=== PATIENT | female | born 1970 | race Two or more races ===

== ENCOUNTER 2016-08-05 13:30 | Inpatient (IN) | payer OTHER ==
[~2016-08-05] VITALS: Ht 154.9 cm; Wt 84.0 kg
[2016-08-05] MEDS ORDERED: ASPIRIN 81 MG TAB PO STA (19:18)
--- NOTE | 2016-08-05 19:22 | ERA ---
ER Documentation Chief Complaint Date/Time DATE: 08/05/16 TIME: 19:20 Chief Complaint dialysis access clogged HPI Patient is a 45-year-old female on dialysis who was sent from dialysis clinic to the ER yesterday, but did not come to the ER until today. She was sent for a broken dialysis catheter in order to have it replaced. Last successful dialysis was 4 days ago. Patient reports having gradual onset, intermittent, dull, moderate left-sided chest pain for the last day. She reports that the pain has now been constant for approximately 5 hours. She denies shortness of breath, fever, back pain. The patient reports having a nonproductive cough. ROS All systems reviewed and are negative except as per history of present illness. Medications Home Meds Reported Medications Insulin Aspart* (Novolog Insulin Pen*) 100 Unit/Ml Soln, 5 UNIT SC WITH MEALS, EA 08/05/16 Insulin Glargine* (Lantus*) 100 Unit/Ml Soln, 20 UNIT SC QHS, #1 VIAL 08/05/16 Escitalopram Oxalate* (Lexapro*) 10 Mg Tablet, 10 MG PO DAILY, #30 TAB 08/05/16 Carvedilol* (Carvedilol*) 12.5 Mg Tablet, 12.5 MG PO BID, #60 TAB 08/05/16 Amlodipine Besylate* (Norvasc*) 5 Mg Tablet, 5 MG PO DAILY, TAB 08/05/16 Furosemide* (Furosemide*) 40 Mg Tablet, 40 MG PO DAILY, TAB 08/05/16 Levothyroxine Sodium* (Levothyroxine Sodium*) 25 Mcg Tablet, 25 MCG PO BEFORE BREAKFAST, #30 TAB 08/05/16 Allopurinol* (Allopurinol*) 100 Mg Tablet, 100 MG PO BID, TAB 08/05/16 Isosorbide Dinitrate* (Isosorbide Dinitrate*) 20 Mg Tablet, 20 MG PO TID, TAB 08/05/16 Enalapril Maleate* (Enalapril Maleate*) 10 Mg Tablet, 10 MG PO DAILY, TAB 08/05/16 Hydralazine Hcl* (Hydralazine Hcl*) 100 Mg Tablet, 100 MG PO TID, #90 TAB 08/05/16 Allergies Allergies: Coded Allergies: Penicillins (Verified Allergy, Unknown, 08/05/16) PMhx/Soc Past medical history: End-stage renal disease, diabetes, hypertension Past surgical history: Cholecystectomy Social history: Denies tobacco or alcohol. FmHx Family History: No coronary disease, No diabetes Physical Exam Vitals Vital Signs Date Time Temp Pulse Resp B/P Pulse Ox O2 Delivery O2 Flow Rate FiO2 08/05/16 13:50 97.9 76 18 183/79 98 Physical Exam Const: Alert, no acute distress Head: Atraumatic Eyes: Normal Conjunctiva, no pallor, no icterus ENT: Normal External Ears, Nose and Mouth. Mucous membranes moist Neck: Full range of motion..~ No meningismus. No JVD Resp: Clear to auscultation bilaterally, no wheezes, no rales Cardio: Regular rate and rhythm, no murmurs Abd: Soft, non tender, non distended. Normal bowel sounds Skin: No petechiae or rashes Back: No midline or flank tenderness Ext: No cyanosis, 1+ pitting edema bilateral ankles. Neur: Awake and alert, cranial nerves II through XII intact bilaterally, moves and feels 4 extremities appropriately. Psych: Normal Mood and Affect Result Diagram: 08/05/162044 Results 24 hrs Laboratory Tests Test 08/05/16 20:45 Sodium Level 136mmol/L Potassium Level 3.6mmol/L Chloride Level 95mmol/L Carbon Dioxide Level 27mmol/L Anion Gap 18 Blood Urea Nitrogen 42mg/dl Creatinine 3.31mg/dl Glucose Level 259mg/dl Calcium Level 9.0mg/dl Troponin I < 0.012ng/ml Current Medications Medications (Trade) Dose Ordered Sig/Zechariah Route PRN Reason Start Time Stop Time Status Last Admin Dose Admin Aspirin (Aspirin) 162 mg ONCE STAT PO 08/05/16 19:18 08/05/16 19:19 DC 08/05/16 19:31 Alteplase, Recombinant (Cathflo (Activase)) 2 mg ONCE ONCE CATHETER 08/05/16 19:30 08/05/16 19:30 DC Ondansetron HCl (Zofran Inj) 4 mg ER BRIDGE PRN IV NAUSEA AND/OR VOMITING 08/06/16 00:00 08/06/16 23:59 Acetaminophen (Tylenol Tab) 650 mg ER BRIDGE PRN PO MILD PAIN/FEVER 08/06/16 00:00 08/06/16 23:59 Procedures/MDM EKG read by me: Time 194, rate 71 Rhythm: Normal sinus [place]: Normal Intervals: Borderline QTC ST-T waves: T-wave inversion in inferior and lateral leads Ectopy: Occasional PVCs Q-waves: No Q waves, LVH Impression: T-wave inversions are nonspecific, occasional PVCs MDM: Patient is a 45-year-old female with end-stage renal disease who was told to come to the ER for dialysis catheter replacement after being noted to have a broken dialysis catheter yesterday in the dialysis clinic. She is sent by Dr. Mendez with a note requesting replacement of the catheter. Given Dr. Mendez's impression that the catheter is broken, I did not attempt declotting with Activase. Chest pain workup was unremarkable. EKG did not appear ischemic to me, chest x-ray showed cardiomegaly only, and troponin was not elevated which is reassuring in a patient who has been 4 days without dialysis. The patient will be admitted to the ER for further chest pain workup as well as replacement of her dialysis catheter. Case was discussed with Dr. Muse, who will admit the patient. Departure Diagnosis: Primary Impression: Problem with dialysis access Qualified Code: T82.898A - Problem with dialysis access, initial encounter Additional Impression: Atypical chest pain Condition: Stable LIA JANE MD August 05, 2016 19:22
[2016-08-05] MEDS ORDERED: ALTEPLASE (CATHFLO) 2 MG INJ CATHETER ONE (19:30)
--- NOTE | 2016-08-05 20:38 | RADRPT ---
PROCEDURE: XR Chest. CLINICAL INDICATION: Chest pain. TECHNIQUE: Single frontal chest x-ray. COMPARISON: None available FINDINGS: A right PermCath is in place with the tip in the SVC. The lungs are clear. No focal opacification is seen. No pneumothorax or pleural effusion is seen. The heart size is prominent. The osseous st ructures are grossly unremarkable. IMPRESSION: 1. No evidence of acute cardiopulmonary disease. 2. Mild cardiomegaly. 3. Right PermCath in place with tip in the SVC. RPTAT: HRAA .Holger Julio MD, Date Time Electronically viewed and signed by .Holger Julio MD, on 08/05/2016 20:37 .A/
[2016-08-05] MEDS ORDERED: HYDR100T7 PO (20:42)
[2016-08-05] MEDS ORDERED: ISOS20TA19 PO (20:43)
[2016-08-05] MEDS ORDERED: ENAL10TA PO (20:43)
[2016-08-05] MEDS ORDERED: LEVO25TA53 PO (20:44)
[2016-08-05] MEDS ORDERED: ALLO100T PO (20:44)
[2016-08-05] MEDS ORDERED: AMLO5TAB4 PO (20:45)
[2016-08-05] MEDS ORDERED: FURO40TA4 PO (20:45)
[2016-08-05] MEDS ORDERED: CARV12.579 PO (20:46)
[2016-08-05] MEDS ORDERED: ESCI10TA PO (20:46)
[2016-08-05] MEDS ORDERED: LANT3I SC (20:47)
[2016-08-05] MEDS ORDERED: NOVO3I SC (20:48)
[2016-08-05 21:25] LABS: CHLORIDE 95 mmol/L (97-110)
[2016-08-05 21:26] LABS: POTASSIUM 3.6 mmol/L (3.5-5.1); SODIUM 136 mmol/L (135-144)
[2016-08-05 21:28] LABS: CREATININE 3.31 mg/dl (0.44-1.00)
[2016-08-05 21:29] LABS: ANION GAP 18 (8-16); BLOOD UREA NITROGEN 42 mg/dl (7-20); CARBON DIOXIDE 27 mmol/L (21-31); GLUCOSE 259 mg/dl (70-220)
[2016-08-05 21:55] LABS: TROPONIN-I < 0.012 ng/ml (0.00-0.12)
[2016-08-06] VITALS (12 sets, daily range): BP systolic 114–182; BP diastolic 55–82; PULSE 63–73; RESP 18–19; TEMP 98; Ht 154.9 cm; Wt 84.0 kg
[2016-08-06] MEDS ORDERED: GLUCOSE GEL 15 GRAM TUBE PO PRN ×2 (04:30)
[2016-08-06] MEDS ORDERED: DEXTROSE 50% 50 ML SYRINGE IV PRN ×2 (04:30)
[2016-08-06] MEDS ORDERED: ONDANSETRON 4 MG INJ IV PRN ×2 (04:30)
[2016-08-06] MEDS ORDERED: ACETAMINOPHEN 325 MG TAB PO PRN ×2 (04:30)
[2016-08-06] MEDS ORDERED: GLUCAGON 1 MG INJ IM PRN (04:30)
[2016-08-06] MEDS ORDERED: GLUCOSE GEL 15 GRAM TUBE BUCCAL PRN (04:30)
[2016-08-06] MEDS ORDERED: NACL 0.9% 3 ML SYG IV SCH (04:30)
[2016-08-06] MEDS: FUROSEMIDE 40 MG TAB PO SCH (06:00)
[2016-08-06] MEDS: INSULIN ASPART [NOVOLOG] 3 ML PEN SC SCH ×4 (06:15→17:44)
[2016-08-06] MEDS: LEVOTHYROXINE 25 MCG TAB PO SCH (06:21)
[2016-08-06] MEDS: HEPARIN 5,000 UNIT/0.5 ML VIAL SC SCH ×3 (06:21→21:14)
[2016-08-06 08:03] LABS: ADD SCAN DIFF NO
[2016-08-06 08:07] LABS: BASOPHILS % 0.5 % (0.0-2.0); EOSINOPHILS # 0.2 10^3/ul (0.0-0.5); EOSINOPHILS % 2.9 % (0.0-7.0); HEMATOCRIT 39.9 % (37.0-47.0); HEMOGLOBIN 13.3 g/dl (12.0-16.0); LYMPHOCYTES # 1.5 10^3/ul (0.8-2.9); LYMPHOCYTES % 18.3 % (15.0-51.0); MEAN CORPUSCULAR HEMOGLOBIN 30.2 pg (29.0-33.0); MEAN CORPUSCULAR HGB CONC 33.3 g/dl (32.0-37.0); MEAN CORPUSCULAR VOLUME 90.7 fl (82.0-101.0); MEAN PLATELET VOLUME 10.7 fl (7.4-10.4); MONOCYTE # 0.6 10^3/ul (0.3-0.9); MONOCYTES % 7.7 % (0.0-11.0); NEUTROPHIL # 5.7 10^3/ul (1.6-7.5); NEUTROPHILS % 70.5 % (39.0-77.0); PLATELET COUNT 212 10^3/UL (140-415); RED CELL DISTRIBUTION WIDTH 13.3 % (11.5-14.5)
[2016-08-06 08:29] LABS: ALBUMIN 3.3 g/dl (3.3-4.9)
[2016-08-06 08:30] LABS: POTASSIUM 3.2 mmol/L (3.5-5.1)
[2016-08-06 08:32] LABS: ALBUMIN/GLOBULIN RATIO 1.06; BILIRUBIN,INDIRECT 0.2 mg/dl (0-1.1); BILIRUBIN,TOTAL 0.2 mg/dl (0.2-1.3); CREATININE 3.32 mg/dl (0.44-1.00); TOTAL PROTEIN 6.4 g/dl (6.1-8.1)
[2016-08-06 08:33] LABS: CALCIUM 8.7 mg/dl (8.4-10.2)
[2016-08-06] MEDS: ISOSORBIDE DINITRATE 20 MG TAB PO SCH ×3 (09:00→21:11)
[2016-08-06] MEDS: FAMOTIDINE 20 MG TAB PO SCH (09:00)
[2016-08-06] MEDS: ESCITALOPRAM 10 MG TAB PO SCH (09:00)
[2016-08-06] MEDS: ENALAPRIL 10 MG TAB PO SCH (09:00)
[2016-08-06] MEDS: AMLODIPINE 5 MG TAB PO SCH (09:00)
[2016-08-06] MEDS ORDERED: POTASSIUM CHLORIDE (SR) 20 MEQ TAB PO STA (09:29)
[2016-08-06] MEDS ORDERED: hydrALAzine 20 MG INJ IV PRN (09:30)
--- NOTE | 2016-08-06 09:31 | HP ---
Date/Time of Note Date/Time of Note DATE: 08/06/16 TIME: 09:17 Assessment/Plan VTE Prophylaxis VTE Prophylaxis Intervention: heparin Lines/Catheters IV [facility] Saline Lock Urinary Cath still in place: No Assessment/Plan Chief Complaint/Hosp Course This is a 45-year-old female being admitted to telemetry floor for: #1 nonfunctioning dialysis catheter: Patient with history of end-stage renal disease and she was to undergo dialysis yesterday however her catheter was not functioning. Will consult nephrology for further management. #2 chest pain: Patient currently denies any chest pain. Denies any shortness of breath. She does have tenderness to palpation. This likely appears to be appears to be musculoskeletal in nature such as costochondritis. however secondary to her cardiac history. Will trend troponins. Order 2D echo. Consult cardiology if indicated #3 end-stage renal disease: Current laboratory values are within acceptable values for chemistry. Will consult nephrology for dialysis management. She was due for it on Thursday. Continue home medications.. #4 hypothyroidism: Continue levothyroxine #5 diabetes mellitus: Start patient on insulin sliding scale, as patient is currently n.p.o. will hold her home insulin dosages right now. When she starts eating and will resume her home insulin. #6 Hypertension: Continue current medications #7 DVT and GI prophylaxis: Heparin, famotidine Problems: HPI/ROS Admit Date/Time Admit Date/Time August 05, 2016 at 23:34 Hx of Present Illness Chief complaint: Nonfunctioning dialysis catheter Patient is a 45-year-old female on dialysis who was sent from dialysis clinic to the ER yesterday, but did not come to the ER until today. She was sent for a broken dialysis catheter in order to have it replaced. Last successful dialysis was 4 days ago. Patient reports having gradual onset, intermittent, dull, moderate left-sided chest pain for the last day. She reports that the pain has now been constant for approximately 5 hours. She denies shortness of breath, fever, back pain. The patient reports having a nonproductive cough. Allergies: Penicillin Medications: See MAR ROS Const: See HPI Eyes : No pain discharge or redness or change in visual acuity ENT: No pain, sore throat, congestion, congestion, dysphagia or discharge Respiratory: No shortness of breath, cough, sputum, wheezing, or pleuritic pain Cardiovascular: Occasional chest pain in the middle of the chest. GI : no change in appetite, abdominal pain, nausea, vomiting, diarrhea, constipation, or change in the color his stool Genitourinary: No dysuria, hematuria, flank pain , discharge or CVA tenderness Musculoskeletal: No joint pain, back pain, neck pain, restricted range of motion in neck or joints Skin: No rash, bruising or hives Neuro: No headache, dizziness, syncope, seizure, focal weakness Endocrine: No polyuria, polydipsia, temperature intolerance Psych: No hallucination, depression, anxiety or suicidal ideation PMH/Family/Social Past Medical History Diabetes mellitus, hypertension, end-stage renal disease on dialysis Past Surgical History Dialysis catheter, 3 C-sections, cholecystectomy Family History Significant Family History: diabetes, hypertension Social History Alcohol Use: none Smoking Status: Never smoker Drug Use: none Exam/Review of Systems Vital Signs Vitals Vital Signs Date Time Temp Pulse Resp B/P Pulse Ox O2 Delivery O2 Flow Rate FiO2 08/06/16 08:11 70 08/06/16 07:34 98.3 18 182/79 97 08/06/16 01:40 Room Air Intake and Output 08/05/16 08/05/16 08/06/16 15:00 23:00 07:00 Intake Total 100 ml Balance 100 ml Exam Exam General: Patient was initially sleeping and appeared comfortable in bed upon awakening she continues to be comfortable. HEENT: Atraumatic, normocephalic. The pupils are equal, round and reactive. Extraocular motor are intact Neck: Supple with full range of motion. No rigidity or meningismus Chest: Tenderness to palpation over the anterior chest, right-sided dialysis catheter Lungs: Clear to auscultation bilaterally no crackles rales or wheezing, no pleuritic chest pain Heart: Normal S1-S2, Regular rhythm and rate. No murmur, S3, or S4 Abdomen: Soft , nontender, nondistended , bowel sounds are present. No guarding no rebound tenderness , No masses or organomegaly. No costovertebral temporal angle mass Extremities: Normal to inspection, no edema no cyanosis Neurologic: Normal mental status, speech normal, cranial nerves II through XII are intact, motor and sensory are intact, no focal weakness Additional Comments EKG read by me: Time 194, rate 71 Rhythm: Normal sinus [place]: Normal Intervals: Borderline QTC ST-T waves: T-wave inversion in inferior and lateral leads Ectopy: Occasional PVCs Q-waves: No Q waves, LVH Impression: T-wave inversions are nonspecific, occasional PVCs PROCEDURE: XR Chest. CLINICAL INDICATION: Chest pain. TECHNIQUE: Single frontal chest x-ray. COMPARISON: None available FINDINGS: A right PermCath is in place with the tip in the SVC. The lungs are clear. No focal opacification is seen. No pneumothorax or pleural effusion is seen. The heart size is prominent. The osseous structures are grossly unremarkable. IMPRESSION: 1. No evidence of acute cardiopulmonary disease. 2. Mild cardiomegaly. 3. Right PermCath in place with tip in the SVC. RPTAT: HRAA .Holger Julio MD, MD Date Time Electronically viewed and signed by .Holger Julio MD, on 08/05/2016 20:37 Labs Result Diagram: 08/06/16 0720 08/06/16 0720 Medications Medications Current Medications Ondansetron HCl (Zofran Inj) 4 mg Q6H PRN IV NAUSEA AND/OR VOMITING; Start at 04:30 Acetaminophen (Tylenol Tab) 650 mg Q6H PRN PO PAIN LEVEL 1-3 OR FEVER; Start at 04:30 Famotidine (Pepcid) 20 mg DAILY PO ; Start 08/06/16 at 09:00 Heparin Sodium (Porcine) (Heparin (5000 Units/0.5 ml)) 5,000 unit Q8 SC Last administered on 08/06/16t 06:21; Admin Dose 5,000 UNIT; Start 08/06/16 at 06:00 Amlodipine Besylate (Norvasc) 5 mg DAILY PO ; Start 08/06/16 at 09:00 Carvedilol (Coreg) 12.5 mg BID PO ; Start 08/06/16 at 09:00 Enalapril Maleate (Vasotec) 10 mg DAILY PO ; Start 08/06/16 at 09:00 Escitalopram Oxalate (Lexapro) 10 mg DAILY PO ; Start 08/06/16 at 09:00 Furosemide (Lasix) 40 mg DAILY@06 PO ; Start 08/06/16 at 06:00 Hydralazine HCl (Apresoline) 100 mg TID PO ; Start 08/06/16 at 09:00 Isosorbide Dinitrate (Isordil) 20 mg TID PO ; Start 08/06/16 at 09:00 Insulin Aspart (Novolog Insulin Pen) NOVOLOG *MILD* ALGORI... Q4 SC Last administered on 08/06/16t 06:15; Admin Dose 2 UNIT; Start 08/06/16 at 05:00 Miscellaneous Information 1 ea NOTE XX ; Start 08/06/16 at 04:30 Glucose (Glutose) 15 gm Q15M PRN PO DECREASED GLUCOSE; Start 08/06/16 at 04:30 Glucose (Glutose) 22.5 gm Q15M PRN PO DECREASED GLUCOSE; Start 08/06/16 at 04: 30 Dextrose (D50w Syringe) 25 ml Q15M PRN IV DECREASED GLUCOSE; Start 08/06/16 at 04:30 Dextrose (D50w Syringe) 50 ml Q15M PRN IV DECREASED GLUCOSE; Start 08/06/16 at 04:30 Glucagon (Glucagen) 1 mg Q15M PRN IM DECREASED GLUCOSE; Start 08/06/16 at 04:30 Glucose (Glutose) 15 gm Q15M PRN BUCCAL DECREASED GLUCOSE; Start 08/06/16 at 04 :30 NORMAN BOWDEN August 06, 2016 09:27
[2016-08-06] MEDS: morphine 2 MG INJ IV PRN (10:04)
--- NOTE | 2016-08-06 10:23 | CONS ---
DATE OF ADMISSION: 08/05/2016 DATE OF CONSULTATION: 08/06/2016 TYPE OF CONSULTATION: Nephrology. REASON FOR CONSULTATION: End-stage renal disease. REFERRING PHYSICIAN: Gurprete Muse MD HISTORY OF PRESENT ILLNESS: This is a 45-year-old female with a past medical history of end-stage r enal disease on dialysis Thursday, Thursday, Thursday, last hemodialysis was presumed Thursday. Access i s a PermCath. 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 T patient comes in today to [facility] in order to have her dialysis catheter rep laced. The patient stated that her doctor told it was not working and she needed to come in. The p atient denies any nausea, vomiting, any shortness of breath, any fevers or chills. The patient in [facility] emergency room had Cathflo placed in the dialysis catheter. PAST MEDICAL HISTORY: As stated above, history of end-stage renal disease, history of diabetes, his tory of hypertension, history of anemia, hypothyroidism. PAST SURGICAL HISTORY: Status post PermCath placement, history of cholecystectomy. ALLERGIES: PENICILLIN. FAMILY HISTORY: Noncontributory. SOCIAL HISTORY: Does not drink, smoke or do drugs. MEDICATIONS: The patient's medications have been reviewed. REVIEW OF SYSTEMS: A 14-point review of systems was conducted. Pertinent positives as stated in th e HPI, otherwise negative. PHYSICAL EXAMINATION: VITAL SIGNS: Blood pressure is 182/79, respirations 18, pulse 79, temperature 98.3. HEENT: Head is normocephalic. Pupils are reactive to light. NECK: Supple. HEART: Regular rate. LUNGS: Show diminished breath sounds at the bases. ABDOMEN: Soft, nontender to palpation. No rebound or guarding. EXTREMITIES: Negative for clubbing, cyanosis. No edema. DERMATOLOGIC: No rashes. MUSCULOSKELETAL: No joint effusions. NEUROLOGIC: No focal deficits. LABORATORY DATA: Shows sodium 137, potassium 2.2, BUN 46, creatinine 3.32. White count 8.0, hemogl obin 13.2, hematocrit 39.9, platelet count is 212. ASSESSMENT AND PLAN: This is a 45-year-old female who presents with: 1. End-stage renal disease. The patient is on dialysis Thursday, Thursday, Thursday with access PermC ath. Plan is for dialysis today for 3 hours, 3K bath, calcium 2.5, will ultrafiltrate as tolerated. We will continue to monitor closely. 2. Access. The patient has questionable PermCath malfunction. The patient is status post alteplas e placement. We will reevaluate. If PermCath still does not function well, we will have PermCath e xchange done by interventional radiology. 3. History of anemia. The patient's hemoglobin level is currently stable. We will continue to mon itor. No need for Epogen. 4. Hypokalemia, replete potassium chloride. 5. Mineral bone disorder. Monitor calcium and phosphorus levels. 6. Hypertension. Continue current blood pressure regimen. We will continue ultrafiltration dialys is. 7. Diabetes. Continue Accu-Cheks and insulin sliding scale. 8. Atypical chest pain. Etiology may be musculoskeletal. The patient is being ruled out for acute coronary syndrome. Initial troponins were negative. Thank you, Dr. Muse, for this interesting consultation. It will be a pleasure to follow the mamadou ent with you throughout the hospital course. Dictated By: SHIVAM BLUM/SABRINA Conf#: [id number] DID#: [id number]
--- NOTE | 2016-08-06 16:02 | QN ---
Documentation Comment [id number] RENAL MALFUNCTIONING PORT OF PERMACATH ESRD HTN DM ANEMIA ASHD DYSLIPEDEMIA LOW EF HX THORACENTESIS PLAN CHANGE PERMACATH AND HD JUAN C SHEPHERD MD August 06, 2016 16:02
--- NOTE | 2016-08-06 16:41 | CONS ---
DATE OF ADMISSION: 08/05/2016 DATE OF CONSULTATION: TYPE OF CONSULTATION: Nephrology. HISTORY OF PRESENT ILLNESS: The patient is a 45-year-old female who was seen yesterday in my office . The patient's case was discussed with the patient's dialysis nurse, Roro, at [facility]. The patient was noted to have broken one of the dialysis catheter ports, per dialysis nurse, and the patient was supposed to have new catheter. The patient was sent with a prescription pad to go to [facility] ER for placement of PermCath by Radiology, but no one called and demarco sharma we found out the patient was admitted. The patient had a prescription given to her by me, and ck sahu then, I was not informed by ER physician or the primary care doctor or the completion engineer who was called to see this patient for consultation. The patient does have some memory impairment due to he r underlying condition and has history of CHF, CKD, anasarca. The patient also has decreased ejecti on fraction, systolic heart failure, cardiomyopathy. The patient also has hypothyroidism and histor y of gout. ALLERGIES: LISTED PENICILLIN. SOCIAL HISTORY: Negative. FAMILY HISTORY: Negative. MEDICATION HISTORY: 1. Allopurinol. 2. Amlodipine. 3. Coreg. 4. Enalapril. 5. Celexa. 6. Lasix. 7. Hydralazine. 8. Insulin. 9. Isosorbide. 10. Levothyroxine. REVIEW OF SYSTEMS: HEENT: Unremarkable. RESPIRATORY: No shortness of breath. CARDIOVASCULAR: No chest pain, palpitation. ABDOMEN: No dyspepsia. EXTREMITIES: No swelling. CENTRAL NERVOUS SYSTEM: Unremarkable. PHYSICAL EXAMINATION: GENERAL: The patient is awake and alert, overweight. VITAL SIGNS: Pulse 68, blood pressure 146/82. HEAD: Atraumatic, normocephalic. Pupils are equal and reactive to light. NECK: Supple. No JVD. LUNGS: Clear. CARDIOVASCULAR: S1, S2 is normal. Systolic murmur noted. ABDOMEN: Soft, nontender. Bowel sounds present. No palpable mass or hepatosplenomegaly. No guard ing, rebound tenderness. EXTREMITIES: There is no cyanosis, clubbing, or edema. The patient has some edema noted of the leg s. MEDICAL DEVICE SALES CONSULTANT: The patient is awake, alert, moving both upper and lower extremities. LABORATORY DATA: Shows the patient's sodium is 137, potassium 3.2, BUN 43.32. The patient's hemogl obin is 7.9. The patient had a chest x-ray that showed no evidence of acute cardiopulmonary disease , mild cardiomegaly. IMPRESSION: 1. The patient has malfunctioning port of the dialysis catheter, broken per dialysis nurse. 2. End-stage renal disease. 3. Hypertension. 4. Diabetes mellitus. 5. Hypothyroidism. 6. Cardiomyopathy. 7. Decreased ejection fraction. 8. Systolic heart failure. 9. History of anasarca. 10. History of thoracentesis. 11. Underlying diabetic nephropathy. PLAN: Continue pain medication. Continue blood pressure medications. The patient will have a Perm Cath replaced by Radiology, and hemodialysis can be performed after that the since patient is stable . The patient will be followed along with you during her hospitalization. Thank you, Dr. Dudley, for kin dly asking me to see this patient in nephrology consultation. Dictated By: JUAN C FREY/SABRINA Conf#: [id number] DID#: [id number]
--- NOTE | 2016-08-06 20:22 | RADRPT ---
Echocardiogram Report ADDENDUM Patient Name: YON BENITEZ Gender: Female Date: 1970 Study Date: 06-Aug-2016 Mineral Economist: [facility] Location: 519 Ref. Physician: NORMAN BOWDEN Quality: Adequate Procedures: Transthoracic echocardiogram with complete 2D, M-Mode, and doppler examination. Indications: Chest Pain. 2D/M Mode Doppler Measurement Value Normal Ranges Measurement Value Normal Ranges LVIDd 2D 5.7 3.5 - 5.6 cm AV Peak David 1.2 m/sec LVIDs 2D 4.8 2.1 - 4.1 cm AV Peak PG 5.4 mmHg LVPWd 2D 1.1 0.6 - 1.1 cm LVOT Peak David 0.6 m/sec IVSd 2D 1.1 0.6 - 1.1 cm LVOT Peak PG 1.6 mmHg AoR Diam 2D 2.1 2.0 - 3.7 cm MV E Peak David 0.8 m/sec EDV 2D 162.9 cm3 MV A Peak David 0.9 m/sec ESV 2D 109.3 cm3 MV E/A 0.9 LA Dimen 2D 3.7 2.3 - 4.0 cm MV Decel Time 125 msec MV Decel Riley 6 MV E/A 0.9 Findings Left Ventricle: Normal left ventricular cavity size. Left ventricular wall thickness upper limits of normal. Mild global left ventricular systolic dysfunction. Moderate left ventricular systolic dysfunction. Ejection fraction is visually estimated at 3540 %. Abnormal Diastolic Function. Right Ventricle: Not well visualized. Left Atrium: The left atrium is normal in size. Right Atrium: The right atrium is normal in size. Mitral Valve: Mild mitral leaflet calcification. Trace mitral regurgitation. Aortic Valve: Normal appearance of the aortic valve. No significant aortic stenosis or insufficiency. Tricuspid Valve: Tricuspid valve not well visualized. There is trace tricuspid regurgitation. Pulmonic Valve: Pulmonic valve not well visualized. There is trace pulmonic regurgitation. Pericardium: Normal pericardium with no significant pericardial effusion. Aorta: Normal aortic root. IVC: Normal size and normal respiratory collapse consistent with normal right atrial pressure. Conclusions 1.Normal left ventricular cavity size. Left ventricular wall thickness upper limits of normal. Mild global left ventricular systolic dysfunction. Moderate left ventricular systolic dysfunction. Ejection fraction is visually estimated at 35-40 %. Abnormal Diastolic Function. 2.Mild mitral leaflet calcification. Trace mitral regurgitation. 3.Tricuspid valve not well visualized. There is trace tricuspid regurgitation. 4.Pulmonic valve not well visualized. There is trace pulmonic regurgitation. Electronically Signed By: Da Sorenson 12-Aug-2016 00:21:20 -0700 [ADDENDUM] Patient Name: YON BENITEZ Study Date: 06-Aug-2016 [id number]
[2016-08-07] VITALS (28 sets, daily range): BP systolic 92–142; BP diastolic 45–67; PULSE 58–73; RESP 15–19
[2016-08-07] MEDS: FUROSEMIDE 40 MG TAB PO SCH (04:52)
[2016-08-07] MEDS: HEPARIN 5,000 UNIT/0.5 ML VIAL SC SCH ×3 (04:53→21:37)
[2016-08-07] MEDS: LEVOTHYROXINE 25 MCG TAB PO SCH (06:36)
[2016-08-07 07:10] LABS: ADD SCAN DIFF NO; BASOPHILS % 0.5 % (0.0-2.0); EOSINOPHILS # 0.3 10^3/ul (0.0-0.5); EOSINOPHILS % 3.4 % (0.0-7.0); HEMATOCRIT 38.5 % (37.0-47.0); HEMOGLOBIN 12.7 g/dl (12.0-16.0); LYMPHOCYTES # 1.7 10^3/ul (0.8-2.9); LYMPHOCYTES % 21.7 % (15.0-51.0); MEAN CORPUSCULAR HEMOGLOBIN 30.2 pg (29.0-33.0); MEAN CORPUSCULAR VOLUME 91.7 fl (82.0-101.0); MEAN PLATELET VOLUME 11.2 fl (7.4-10.4); MONOCYTE # 0.6 10^3/ul (0.3-0.9); MONOCYTES % 7.1 % (0.0-11.0); NEUTROPHIL # 5.2 10^3/ul (1.6-7.5); PLATELET COUNT 207 10^3/UL (140-415); RED CELL DISTRIBUTION WIDTH 13.3 % (11.5-14.5); WHITE BLOOD COUNT 7.7 10^3/ul (4.8-10.8)
[2016-08-07 07:17] LABS: INR 0.95; PROTIME 12.7 Sec (12.2-14.2)
[2016-08-07 07:34] LABS: ALBUMIN 3.2 g/dl (3.3-4.9); ALBUMIN/GLOBULIN RATIO 1.14; CALCIUM 8.7 mg/dl (8.4-10.2); CREATININE 3.51 mg/dl (0.44-1.00)
[2016-08-07 07:37] LABS: MAGNESIUM 2.2 mg/dl (1.7-2.5); PHOSPHORUS 4.8 mg/dl (2.5-4.9)
[2016-08-07] MEDS: ISOSORBIDE DINITRATE 20 MG TAB PO SCH ×3 (08:35→21:00)
[2016-08-07] MEDS: AMLODIPINE 5 MG TAB PO SCH (08:35)
[2016-08-07] MEDS: ESCITALOPRAM 10 MG TAB PO SCH (08:35)
[2016-08-07] MEDS: FAMOTIDINE 20 MG TAB PO SCH (08:35)
[2016-08-07] MEDS: ENALAPRIL 10 MG TAB PO SCH (08:36)
[2016-08-07] MEDS: INSULIN ASPART [NOVOLOG] 3 ML PEN SC SCH ×5 (08:39→18:05)
--- NOTE | 2016-08-07 08:58 | PN ---
Date/Time of Note Date/Time of Note DATE: 08/07/16 TIME: 08:58 Assessment/Plan VTE Prophylaxis VTE Prophylaxis Intervention: heparin Lines/Catheters IV Catheter Type (from Nrs): Saline Lock Urinary Cath still in place: No Assessment/Plan Assessment/Plan This is a 45-year-old female being admitted to telemetry floor for: #1 Nonfunctioning dialysis catheter: Patient with history of end-stage renal disease and she was to undergo dialysis yesterday however her catheter was not functioning /plan for permacath replacement today #2 Chest pain: This has resolved /acute coronary syndrome has been ruled out / echo findings reviewed and noted /if pain continues to recall patient may require nitrates therapy #3 end-stage renal disease: Planned for hemodialysis after permacath replacement #4 hypothyroidism: Continue levothyroxine #5 diabetes mellitus: Lantus on hold for n.p.o. status, will resume once commenced on a diet #6 Hypertension: Continue current medications #7 Cardiomyopathy with ejection fraction of 35%, and diastolic dysfunction: Patient continues on aspirin, statin, beta-aiden, and KAROL inhibitor therapy DVT and GI prophylaxis: Heparin, famotidine Possible d/c after dialysis if stable Subjective 24 Hr Interval Summary Constitutional: no complaints Exam/Review of Systems Vital Signs Vitals Vital Signs Date Time Temp Pulse Resp B/P Pulse Ox O2 Delivery O2 Flow Rate FiO2 08/07/16 08:20 65 08/07/16 07:11 97.7 19 137/65 99 08/06/16 01:40 Room Air Intake and Output 08/06/16 08/06/16 08/07/16 15:00 23:00 07:00 Intake Total 500 ml 500 ml Balance 500 ml 500 ml Exam General: Patient was initially sleeping and appeared comfortable in bed upon awakening she continues to be comfortable. HEENT: Atraumatic, normocephalic. The pupils are equal, round and reactive. Extraocular motor are intact Neck: Supple with full range of motion. Chest: Tenderness to palpation over the anterior chest, right-sided dialysis catheter Lungs: Clear to auscultation bilaterally no crackles rales or wheezing, no pleuritic chest pain Heart: Normal S1-S2, Regular rhythm and rate. No murmur, S3, or S4 Abdomen: Soft , nontender, nondistended , bowel sounds are present. No guarding no rebound tenderness , No masses or organomegaly. No costovertebral temporal angle mass Extremities: Normal to inspection, no edema no cyanosis Neurologic: Normal mental status, speech normal, patient has blank affect however no focal weakness Results Result Diagram: 08/07/16 0645 08/07/16 0645 Results 24 hrs Laboratory Tests Test 08/06/16 09:47 08/06/16 11:14 08/06/16 12:40 08/06/16 13:31 Bedside Glucose 201 182 149 Troponin I < 0.012 Test 08/06/16 17:16 08/06/16 18:25 08/07/16 06:45 08/07/16 08:32 Bedside Glucose 258 H 208 Troponin I < 0.012 White Blood Count 7.7 Red Blood Count 4.20 Hemoglobin 12.7 Hematocrit 38.5 Mean Corpuscular Volume 91.7 Mean Corpuscular Hemoglobin 30.2 Mean Corpuscular Hemoglobin Concent 33.0 Red Cell Distribution Width 13.3 Platelet Count 207 Mean Platelet Volume 11.2 H Neutrophils % 67.0 Lymphocytes % 21.7 Monocytes % 7.1 Eosinophils % 3.4 Basophils % 0.5 Nucleated Red Blood Cells % 0.0 Neutrophils # 5.2 Lymphocytes # 1.7 Monocytes # 0.6 Eosinophils # 0.3 Basophils # 0.0 Nucleated Red Blood Cells # 0.0 Prothrombin Time 12.7 Prothrombin Time Ratio 1.0 INR International Normalized Ratio 0.95 Activated Partial Thromboplast Time 33.0 Sodium Level 133 L Potassium Level 4.0 Chloride Level 102 Carbon Dioxide Level 23 Anion Gap 12 Blood Urea Nitrogen 56 H Creatinine 3.51 H Glucose Level 216 Calcium Level 8.7 Phosphorus Level 4.8 Magnesium Level 2.2 Total Bilirubin 0.0 L Direct Bilirubin 0.00 Indirect Bilirubin 0.0 Aspartate Amino Transf (AST/SGOT) 25 Alanine Aminotransferase (ALT/SGPT) 28 Alkaline Phosphatase 107 Total Protein 6.0 L Albumin 3.2 L Globulin 2.80 Albumin/Globulin Ratio 1.14 Medications Medications Current Medications Ondansetron HCl (Zofran Inj) 4 mg Q6H PRN IV NAUSEA AND/OR VOMITING; Start at 04:30 Acetaminophen (Tylenol Tab) 650 mg Q6H PRN PO PAIN LEVEL 1-3 OR FEVER; Start at 04:30 Famotidine (Pepcid) 20 mg DAILY PO Last administered on 08/07/16 08:35; Admin Dose 20 MG; Start 08/06/16 at 09:00 Heparin Sodium (Porcine) (Heparin (5000 Units/0.5 ml)) 5,000 unit Q8 SC Last administered on 08/06/16 21:14; Admin Dose 5,000 UNIT; Start 08/06/16 at 06:00 Amlodipine Besylate (Norvasc) 5 mg DAILY PO Last administered on 08/07/16 08: 35; Admin Dose 5 MG; Start 08/06/16 at 09:00 Carvedilol (Coreg) 12.5 mg BID PO Last administered on 08/07/16 08:34; Admin Dose 12.5 MG; Start 08/06/16 at 09:00 Enalapril Maleate (Vasotec) 10 mg DAILY PO Last administered on 08/07/16 08:36 ; Admin Dose 10 MG; Start 08/06/16 at 09:00 Escitalopram Oxalate (Lexapro) 10 mg DAILY PO Last administered on 08/07/16 08 :35; Admin Dose 10 MG; Start 08/06/16 at 09:00 Furosemide (Lasix) 40 mg DAILY@06 PO ; Start 08/06/16 at 06:00 Hydralazine HCl (Apresoline) 100 mg TID PO Last administered on 08/07/16 08:33 ; Admin Dose 100 MG; Start 08/06/16 at 09:00 Isosorbide Dinitrate (Isordil) 20 mg TID PO Last administered on 08/07/16 08: 35; Admin Dose 20 MG; Start 08/06/16 at 09:00 Miscellaneous Information 1 ea NOTE XX ; Start 08/06/16 at 04:30 Glucose (Glutose) 15 gm Q15M PRN PO DECREASED GLUCOSE; Start 08/06/16 at 04:30 Glucose (Glutose) 22.5 gm Q15M PRN PO DECREASED GLUCOSE; Start 08/06/16 at 04: 30 Dextrose (D50w Syringe) 25 ml Q15M PRN IV DECREASED GLUCOSE; Start 08/06/16 at 04:30 Dextrose (D50w Syringe) 50 ml Q15M PRN IV DECREASED GLUCOSE; Start 08/06/16 at 04:30 Glucagon (Glucagen) 1 mg Q15M PRN IM DECREASED GLUCOSE; Start 08/06/16 at 04:30 Glucose (Glutose) 15 gm Q15M PRN BUCCAL DECREASED GLUCOSE; Start 08/06/16 at 04 :30 Hydralazine HCl (Apresoline) 10 mg Q6H PRN IV SBP >160; Start 08/06/16 at 09:30 Morphine Sulfate (morphine) 2 mg Q4H PRN IV pain Last administered on t 10:04; Admin Dose 2 MG; Start 08/06/16 at 10:00 MELITON COLBY August 07, 2016 08:58
[2016-08-07] MEDS: ALLOPURINOL 100 MG TAB PO SCH (09:34)
[2016-08-07] MEDS ORDERED: SOD CHLORIDE 0.9% 500 ML ONE (13:27)
[2016-08-07] MEDS ORDERED: HEPARIN 1000 UNITS/ML 10 ML INJ ONE (13:27)
[2016-08-07] MEDS ORDERED: LIDOCAINE 1% (MDV) 20 ML INJ ONE (13:27)
[2016-08-07] MEDS ORDERED: MIDAZOLAM 1 MG/ML 2 ML INJ ONE (13:27)
[2016-08-07] MEDS ORDERED: FENTAnyl 50 MCG/ML VIAL ONE (13:27)
[2016-08-07] MEDS ORDERED: CEFAZOLIN 1 GM/50 ML (PMX) 0 ML IVPB ONE (13:27)
--- NOTE | 2016-08-07 15:03 | RADRPT ---
PROCEDURE: Over the wire exchange of right internal jugular vein tunneled dialysis catheter. CLINICAL INDICATION: Renal failure. The existing dialysis catheter is not functioning. TECHNIQUE: Prior to the procedure, informed consent was obtained. Risks including bleeding, infection, and pneu mothorax were explained to the patient. The patient understood and was willing to proceed. A procedu ral pause was performed. The patient's name, date of , and procedure to be performed were verif ied. The central line was inserted with all elements of maximal sterile barrier technique. All of the fol lowing were used: head covering, facial mask, sterile gown, sterile gloves, a large sterile sheet, h and hygiene, and 2% chlorhexidine for cutaneous antisepsis. The right neck and anterior/superior c hest wall was prepped and draped in usual sterile fashion. Following the local injection of Xylocaine, a 1 cm incision was made at the site of the entry of the tunneled dialysis catheter in the right anterior chest wall. The existing right internal jugular v ein dialysis catheter was dissected out using blunt dissection. The catheter was removed with fluor oscopic guidance over a 0.035-inch guide wire. The new 14.5 Croatian 23 cm long [employer] BioFlo DuraMax dialysis catheter was advanced over the guide wire. The guidewire was removed. The tip of the catheter was confirmed in position within the upper right atrium. The 2 ports were each flushed with 2.3 ml of 1:1000 heparin. The catheter was secured to the skin wi th 2-0 silk. The site was dressed. The incision was closed with 4-0 Vicryl. The patient tolerated the procedure well. COMPARISON: None. FINDINGS: Final images demonstrate the tip of the catheter in the upper right atrium. A total of 0.1 minutes of fluoroscopy time was used. IMPRESSION: 1. Percutaneous replacement of right internal jugular dialysis tunneled dialysis catheter with fluor oscopic guidance. RPTAT: QQ .Ruddy Mazariegos MD, Date Time Electronically viewed and signed by .Ruddy Mazariegos MD, on 08/07/2016 15:03 .R/
--- NOTE | 2016-08-07 19:34 | CONS ---
Date/Time of Note Date/Time of Note DATE: 08/07/16 TIME: 19:32 Assessment/Plan Assessment/Plan Chief Complaint/Hosp Course IMPRESSION: 1. The patient has malfunctioning port of the dialysis catheter, broken per dialysis nurse. 2. End-stage renal disease. 3. Hypertension. 4. Diabetes mellitus. 5. Hypothyroidism. 6. Cardiomyopathy. 7. Decreased ejection fraction. 8. Systolic heart failure. 9. History of anasarca. 10. History of thoracentesis. 11. Underlying diabetic nephropathy. plan placment of cath and hd Problems: Consultation Date/Type/Reason Admit Date/Time August 05, 2016 at 23:34 Initial Consult Date Type of Consultation: renal 24 HR Interval Summary Constitutional: no complaints Exam/Review of Systems Vital Signs Vitals Vital Signs Date Time Temp Pulse Resp B/P Pulse Ox O2 Delivery O2 Flow Rate FiO2 08/07/16 19:20 63 08/07/16 17:20 20 08/07/16 15:53 97.7 125/59 96 Room Air 08/07/16 14:30 3 Intake and Output 08/06/16 08/06/16 08/07/16 15:00 23:00 07:00 Intake Total 500 ml 500 ml Balance 500 ml 500 ml Exam Neck: supple Respiratory: clear to auscultation Cardiovascular: regular rate and rhythm Gastrointestinal: soft Musculoskeletal: nl extremities to inspection Extremities: normal pulses Results Result Diagram: 08/07/16 0645 08/07/16 0645 Results 24 hrs Laboratory Tests Test 08/07/16 06:45 08/07/16 08:32 08/07/16 11:25 08/07/16 17:09 White Blood Count 7.7 Red Blood Count 4.20 Hemoglobin 12.7 Hematocrit 38.5 Mean Corpuscular Volume 91.7 Mean Corpuscular Hemoglobin 30.2 Mean Corpuscular Hemoglobin Concent 33.0 Red Cell Distribution Width 13.3 Platelet Count 207 Mean Platelet Volume 11.2 H Neutrophils % 67.0 Lymphocytes % 21.7 Monocytes % 7.1 Eosinophils % 3.4 Basophils % 0.5 Nucleated Red Blood Cells % 0.0 Neutrophils # 5.2 Lymphocytes # 1.7 Monocytes # 0.6 Eosinophils # 0.3 Basophils # 0.0 Nucleated Red Blood Cells # 0.0 Prothrombin Time 12.7 Prothrombin Time Ratio 1.0 INR International Normalized Ratio 0.95 Activated Partial Thromboplast Time 33.0 Sodium Level 133 L Potassium Level 4.0 Chloride Level 102 Carbon Dioxide Level 23 Anion Gap 12 Blood Urea Nitrogen 56 H Creatinine 3.51 H Glucose Level 216 Calcium Level 8.7 Phosphorus Level 4.8 Magnesium Level 2.2 Total Bilirubin 0.0 L Direct Bilirubin 0.00 Indirect Bilirubin 0.0 Aspartate Amino Transf (AST/SGOT) 25 Alanine Aminotransferase (ALT/SGPT) 28 Alkaline Phosphatase 107 Total Protein 6.0 L Albumin 3.2 L Globulin 2.80 Albumin/Globulin Ratio 1.14 Bedside Glucose 208 173 270 H Medications Medications Current Medications Ondansetron HCl (Zofran Inj) 4 mg Q6H PRN IV NAUSEA AND/OR VOMITING Last administered on 08/07/16 12:15; Admin Dose 4 MG; Start 08/06/16 at 04:30 Acetaminophen (Tylenol Tab) 650 mg Q6H PRN PO PAIN LEVEL 1-3 OR FEVER; Start at 04:30 Famotidine (Pepcid) 20 mg DAILY PO Last administered on 08/07/16 08:35; Admin Dose 20 MG; Start 08/06/16 at 09:00 Heparin Sodium (Porcine) (Heparin (5000 Units/0.5 ml)) 5,000 unit Q8 SC Last administered on 08/06/16 21:14; Admin Dose 5,000 UNIT; Start 08/06/16 at 06:00 Amlodipine Besylate (Norvasc) 5 mg DAILY PO Last administered on 08/07/16 08: 35; Admin Dose 5 MG; Start 08/06/16 at 09:00 Enalapril Maleate (Vasotec) 10 mg DAILY PO Last administered on 08/07/16 08:36 ; Admin Dose 10 MG; Start 08/06/16 at 09:00 Escitalopram Oxalate (Lexapro) 10 mg DAILY PO Last administered on 08/07/16 08 :35; Admin Dose 10 MG; Start 08/06/16 at 09:00 Furosemide (Lasix) 40 mg DAILY@06 PO ; Start 08/06/16 at 06:00 Hydralazine HCl (Apresoline) 100 mg TID PO Last administered on 08/07/16 08:33 ; Admin Dose 100 MG; Start 08/06/16 at 09:00 Isosorbide Dinitrate (Isordil) 20 mg TID PO Last administered on 08/07/16 08: 35; Admin Dose 20 MG; Start 08/06/16 at 09:00 Miscellaneous Information 1 ea NOTE XX ; Start 08/06/16 at 04:30 Glucose (Glutose) 15 gm Q15M PRN PO DECREASED GLUCOSE; Start 08/06/16 at 04:30 Glucose (Glutose) 22.5 gm Q15M PRN PO DECREASED GLUCOSE; Start 08/06/16 at 04: 30 Dextrose (D50w Syringe) 25 ml Q15M PRN IV DECREASED GLUCOSE; Start 08/06/16 at 04:30 Dextrose (D50w Syringe) 50 ml Q15M PRN IV DECREASED GLUCOSE; Start 08/06/16 at 04:30 Glucagon (Glucagen) 1 mg Q15M PRN IM DECREASED GLUCOSE; Start 08/06/16 at 04:30 Glucose (Glutose) 15 gm Q15M PRN BUCCAL DECREASED GLUCOSE; Start 08/06/16 at 04 :30 Hydralazine HCl (Apresoline) 10 mg Q6H PRN IV SBP >160; Start 08/06/16 at 09:30 Morphine Sulfate (morphine) 2 mg Q4H PRN IV pain Last administered on 10:04; Admin Dose 2 MG; Start 08/06/16 at 10:00 Allopurinol (Zyloprim) 100 mg DAILY PO Last administered on 08/07/16 09:34; Admin Dose 100 MG; Start 08/07/16 at 09:00 Insulin Glargine (Lantus) 20 unit QHS SC ; Start 08/07/16 at 21:00 Atorvastatin Calcium (Lipitor) 40 mg HS PO ; Start 08/07/16 at 21:00 Carvedilol (Coreg) 6.25 mg BID PO ; Start 08/07/16 at 21:00 JUAN C SHEPHERD MD August 07, 2016 19:34
[2016-08-07] MEDS: ATORVASTATIN 40 MG TAB PO SCH (21:19)
[2016-08-07] MEDS: INSULIN GLARGINE [LANtus] 3 ML PEN SC SCH (21:23)
[2016-08-08] VITALS (12 sets, daily range): BP systolic 113–137; BP diastolic 56–68; PULSE 63–70; RESP 15–18
[2016-08-08] MEDS: LEVOTHYROXINE 25 MCG TAB PO SCH (05:39)
[2016-08-08] MEDS: FUROSEMIDE 40 MG TAB PO SCH (05:40)
[2016-08-08] MEDS: HEPARIN 5,000 UNIT/0.5 ML VIAL SC SCH ×4 (05:47→22:00)
[2016-08-08] MEDS: INSULIN ASPART [NOVOLOG] 3 ML PEN SC SCH ×6 (08:23→17:33)
[2016-08-08] MEDS: morphine 2 MG INJ IV PRN (08:41)
[2016-08-08] MEDS: ISOSORBIDE DINITRATE 20 MG TAB PO SCH ×3 (08:45→21:26)
[2016-08-08] MEDS: ESCITALOPRAM 10 MG TAB PO SCH (08:45)
[2016-08-08] MEDS: ENALAPRIL 10 MG TAB PO SCH (08:46)
[2016-08-08] MEDS: FAMOTIDINE 20 MG TAB PO SCH (08:46)
[2016-08-08] MEDS: AMLODIPINE 5 MG TAB PO SCH (08:46)
[2016-08-08] MEDS: ALLOPURINOL 100 MG TAB PO SCH (08:47)
--- NOTE | 2016-08-08 09:02 | PN ---
Date/Time of Note Date/Time of Note DATE: 08/08/16 TIME: 09:01 Assessment/Plan VTE Prophylaxis VTE Prophylaxis Intervention: heparin Lines/Catheters IV Catheter Type (from [facility]): Saline Lock Urinary Cath still in place: No Assessment/Plan Assessment/Plan This is a 45-year-old female being admitted to telemetry floor for: #1 Nonfunctioning dialysis catheter: Catheter has been replaced, patient underwent dialysis yesterday. Further dialysis per nephrology #2 Chest pain: Persistent despite nitrates therapy. Receive morphine today. Multiple PVCs on monitor. Cardiology consult. #3 end-stage renal disease: On hemodialysis #4 hypothyroidism: Continue levothyroxine #5 diabetes mellitus: Lantus on hold for n.p.o. status, will resume once commenced on a diet #6 Hypertension: Continue current medications #7 Cardiomyopathy with ejection fraction of 35%, and diastolic dysfunction: Patient continues on aspirin, statin, beta-aiden, and KAROL inhibitor therapy #8 Acute encephalopathy: Patient had a transient period of unresponsiveness while alert, with a blank affect, which lasted a few minutes. Highly suggestive of seizure. We will get CT of the brain, EEG, neurology consult. DVT and GI prophylaxis: Heparin, famotidine Critical care time: 50 minutes. Subjective 24 Hr Interval Summary Free Text/Dictation Patient was seen multiple times today. Upon my first review she seems somewhat lethargic but complained of chest pain, and that the nurse had medicated her with morphine just before. It was same chest pain in the left upper chest, nonradiating. However I had to dominguez to the patient's side a few about an hour later, when a rapid response was called. Apparently the patient seemed to have "spaced out". She was alert but not very responsive. Her speech was slow and somewhat confused. After a few minutes of no real intervention, her mentation improved, she seemed to realize where she was, and she became extremely anxious. Her speech was much better, and she started requesting dialysis. The whole clinical presentation was suggestive of an absence seizure, however patient has no history of this. She remained in stable condition. And I remained at the bedside for about 40 minutes. At which time she had an EKG which I reviewed, this was negative for any ST elevations or depressions. Also I ordered for blood draw, and I will be reviewing this when available. She received no further medication other than the morphine she had received earlier, however I did order a normal saline bolus. Cardiovascular: chest pain, other (PVCs on monitor) Exam/Review of Systems Vital Signs Vitals Vital Signs Date Time Temp Pulse Resp B/P Pulse Ox O2 Delivery O2 Flow Rate FiO2 08/08/16 08:00 69 08/08/16 06:52 98.5 18 137/64 97 08/07/16 15:53 Room Air 08/07/16 14:30 3 Intake and Output 08/07/16 08/07/16 08/08/16 15:00 23:00 07:00 Intake Total 1000 ml 400 ml Output Total 1500 ml Balance -500 ml 400 ml Exam My evaluation at the at the end of the [employer]'s as follows Constitutional: alert, No distress Psych: anxiety Head: atraumatic, normocephalic Eyes: PERRL ENMT: mucosa pink and moist (Multiple to be) Neck: non-tender (As I so I do not know how she would feel about that she should be okay with a but he is 1 so), supple Respiratory: clear to auscultation (The patient received new the 1 and) Cardiovascular: regular rate and rhythm, No murmurs/extra sounds Gastrointestinal: bowel sounds, non-tender, soft Extremities: No edema Neurological: lethargic, nl mental status, No confused, No focal weakness Results Result Diagram: 08/07/16 0645 08/07/16 0645 Results 24 hrs Laboratory Tests Test 08/07/16 11:25 08/07/16 17:09 08/08/16 08:20 Bedside Glucose 173 270 H 219 Medications Medications Current Medications Ondansetron HCl (Zofran Inj) 4 mg Q6H PRN IV NAUSEA AND/OR VOMITING Last administered on 08/07/16 12:15; Admin Dose 4 MG; Start 08/06/16 at 04:30 Acetaminophen (Tylenol Tab) 650 mg Q6H PRN PO PAIN LEVEL 1-3 OR FEVER; Start at 04:30 Famotidine (Pepcid) 20 mg DAILY PO Last administered on 08/08/16 08:46; Admin Dose 20 MG; Start 08/06/16 at 09:00 Heparin Sodium (Porcine) (Heparin (5000 Units/0.5 ml)) 5,000 unit Q8 SC Last administered on 08/08/16 05:47; Admin Dose 5,000 UNIT; Start 08/06/16 at 06:00 Amlodipine Besylate (Norvasc) 5 mg DAILY PO Last administered on 08/08/16 08: 46; Admin Dose 5 MG; Start 08/06/16 at 09:00 Enalapril Maleate (Vasotec) 10 mg DAILY PO Last administered on 08/08/16 08:46 ; Admin Dose 10 MG; Start 08/06/16 at 09:00 Escitalopram Oxalate (Lexapro) 10 mg DAILY PO Last administered on 08/08/16 08 :45; Admin Dose 10 MG; Start 08/06/16 at 09:00 Furosemide (Lasix) 40 mg DAILY@06 PO Last administered on 08/08/16 05:40; Admin Dose 40 MG; Start 08/06/16 at 06:00 Hydralazine HCl (Apresoline) 100 mg TID PO Last administered on 08/08/16 08:45 ; Admin Dose 100 MG; Start 08/06/16 at 09:00 Isosorbide Dinitrate (Isordil) 20 mg TID PO Last administered on 08/08/16 08: 45; Admin Dose 20 MG; Start 08/06/16 at 09:00 Miscellaneous Information 1 ea NOTE XX ; Start 08/06/16 at 04:30 Glucose (Glutose) 15 gm Q15M PRN PO DECREASED GLUCOSE; Start 08/06/16 at 04:30 Glucose (Glutose) 22.5 gm Q15M PRN PO DECREASED GLUCOSE; Start 08/06/16 at 04: 30 Dextrose (D50w Syringe) 25 ml Q15M PRN IV DECREASED GLUCOSE; Start 08/06/16 at 04:30 Dextrose (D50w Syringe) 50 ml Q15M PRN IV DECREASED GLUCOSE; Start 08/06/16 at 04:30 Glucagon (Glucagen) 1 mg Q15M PRN IM DECREASED GLUCOSE; Start 08/06/16 at 04:30 Glucose (Glutose) 15 gm Q15M PRN BUCCAL DECREASED GLUCOSE; Start 08/06/16 at 04 :30 Hydralazine HCl (Apresoline) 10 mg Q6H PRN IV SBP >160; Start 08/06/16 at 09:30 Morphine Sulfate (morphine) 2 mg Q4H PRN IV pain Last administered on 08:41; Admin Dose 2 MG; Start 08/06/16 at 10:00 Allopurinol (Zyloprim) 100 mg DAILY PO Last administered on 08/08/16 08:47; Admin Dose 100 MG; Start 08/07/16 at 09:00 Insulin Glargine (Lantus) 20 unit QHS SC Last administered on 08/07/16 21:23; Admin Dose 20 UNIT; Start 08/07/16 at 21:00 Atorvastatin Calcium (Lipitor) 40 mg HS PO Last administered on 08/07/16 21:19 ; Admin Dose 40 MG; Start 08/07/16 at 21:00 Carvedilol (Coreg) 6.25 mg BID PO Last administered on 08/08/16 08:45; Admin Dose 6.25 MG; Start 08/07/16 at 21:00 Procedures Procedures PROCEDURE: Over the wire exchange of right internal jugular vein tunneled dialysis catheter. CLINICAL INDICATION: Renal failure. The existing dialysis catheter is not functioning. TECHNIQUE: Prior to the procedure, informed consent was obtained. Risks including bleeding , infection, and pneumothorax were explained to the patient. The patient understood and was willing to proceed. A procedural pause was performed. The patient's name, date of , and procedure to be performed were verified. The central line was inserted with all elements of maximal sterile barrier technique. All of the following were used: head covering, facial mask, sterile gown, sterile gloves, a large sterile sheet, hand hygiene, and 2% chlorhexidine for cutaneous antisepsis. The right neck and anterior/superior chest wall was prepped and draped in usual sterile fashion. Following the local injection of Xylocaine, a 1 cm incision was made at the site of the entry of the tunneled dialysis catheter in the right anterior chest wall. The existing right internal jugular vein dialysis catheter was dissected out using blunt dissection. The catheter was removed with fluoroscopic guidance over a 0.035-inch guide wire. The new 14.5 Turkish 23 cm long [employer] ([employer] BioFlo DuraMax dialysis catheter was advanced over the guide wire. The guidewire was removed. The tip of the catheter was confirmed in position within the upper right atrium. The 2 ports were each flushed with 2.3 ml of 1:1000 heparin. The catheter was secured to the skin with 2-0 silk. The site was dressed. The incision was closed with 4-0 Vicryl. The patient tolerated the procedure well. COMPARISON: None. FINDINGS: Final images demonstrate the tip of the catheter in the upper right atrium. A total of 0.1 minutes of fluoroscopy time was used. IMPRESSION: 1. Percutaneous replacement of right internal jugular dialysis tunneled dialysis catheter with fluoroscopic guidance. RPTAT: QQ .Ruddy Mazariegos MD, MD Date Time Electronically viewed and signed by .Ruddy Mazariegos MD, MD on 08/07/2016 15:03 .R/ CC: JUAN C SHEPHERD MD, BOLATITO M. August 08, 2016 09:02
[2016-08-08 10:53] LABS: ADD SCAN DIFF NO
[2016-08-08 10:56] LABS: BASOPHILS % 0.5 % (0.0-2.0); EOSINOPHILS # 0.2 10^3/ul (0.0-0.5); EOSINOPHILS % 1.7 % (0.0-7.0); HEMATOCRIT 37.9 % (37.0-47.0); HEMOGLOBIN 12.1 g/dl (12.0-16.0); LYMPHOCYTES # 1.3 10^3/ul (0.8-2.9); LYMPHOCYTES % 15.3 % (15.0-51.0); MEAN CORPUSCULAR HEMOGLOBIN 29.7 pg (29.0-33.0); MEAN CORPUSCULAR HGB CONC 31.9 g/dl (32.0-37.0); MEAN CORPUSCULAR VOLUME 93.1 fl (82.0-101.0); MEAN PLATELET VOLUME 10.3 fl (7.4-10.4); MONOCYTE # 0.6 10^3/ul (0.3-0.9); MONOCYTES % 7.2 % (0.0-11.0); NEUTROPHIL # 6.5 10^3/ul (1.6-7.5); NEUTROPHILS % 75.1 % (39.0-77.0); PLATELET COUNT 209 10^3/UL (140-415); RED BLOOD COUNT 4.07 10^6/ul (4.20-5.40); RED CELL DISTRIBUTION WIDTH 13.5 % (11.5-14.5); WHITE BLOOD COUNT 8.7 10^3/ul (4.8-10.8)
[2016-08-08 11:25] LABS: POTASSIUM 3.7 mmol/L (3.5-5.1)
[2016-08-08 11:27] LABS: CREATININE 3.77 mg/dl (0.44-1.00)
[2016-08-08 11:28] LABS: CALCIUM 8.7 mg/dl (8.4-10.2); MAGNESIUM 2.1 mg/dl (1.7-2.5)
--- NOTE | 2016-08-08 12:08 | CONS ---
Date/Time of Note Date/Time of Note DATE: 08/08/16 TIME: 12:05 Assessment/Plan Assessment/Plan Chief Complaint/Hosp Course 1. The patient has malfunctioning port of the dialysis catheter, broken per dialysis nurse. 2. End-stage renal disease. 3. Hypertension. 4. Diabetes mellitus. 5. Hypothyroidism. 6. Cardiomyopathy. 7. Decreased ejection fraction. 8. Systolic heart failure. 9. History of anasarca. 10. History of thoracentesis. 11. Underlying diabetic nephropathy. Problems: Additional Assessment/Plan Continue hd Consultation Date/Type/Reason Admit Date/Time August 08, 2016 at 09:01 Initial Consult Date 08/08/2016 Type of Consultation: renal Reason for Consultation Dr Mendez Exam/Review of Systems Vital Signs Vitals Vital Signs Date Time Temp Pulse Resp B/P Pulse Ox O2 Delivery O2 Flow Rate FiO2 08/08/16 11:15 94 08/08/16 10:57 98.5 18 120/62 97 08/07/16 15:53 Room Air 08/07/16 14:30 3 Intake and Output 08/07/16 08/07/16 08/08/16 15:00 23:00 07:00 Intake Total 1000 ml 400 ml Output Total 1500 ml Balance -500 ml 400 ml Exam Constitutional: alert, oriented Psych: no complaints ENMT: nl external ears & nose Neck: supple Cardiovascular: regular rate and rhythm Gastrointestinal: soft Genitourinary - Female: nl adnexae Results Result Diagram: 08/08/16 1043 08/08/16 1043 Results 24 hrs Laboratory Tests Test 08/07/16 17:09 08/08/16 08:20 08/08/16 10:36 08/08/16 10:43 Bedside Glucose 270 H 219 101 White Blood Count 8.7 Red Blood Count 4.07 L Hemoglobin 12.1 Hematocrit 37.9 Mean Corpuscular Volume 93.1 Mean Corpuscular Hemoglobin 29.7 Mean Corpuscular Hemoglobin Concent 31.9 L Red Cell Distribution Width 13.5 Platelet Count 209 Mean Platelet Volume 10.3 Neutrophils % 75.1 Lymphocytes % 15.3 Monocytes % 7.2 Eosinophils % 1.7 Basophils % 0.5 Nucleated Red Blood Cells % 0.0 Neutrophils # 6.5 Lymphocytes # 1.3 Monocytes # 0.6 Eosinophils # 0.2 Basophils # 0.0 Nucleated Red Blood Cells # 0.0 Sodium Level 138 Potassium Level 3.7 Chloride Level 98 Carbon Dioxide Level 29 Anion Gap 15 Blood Urea Nitrogen 42 #H Creatinine 3.77 H Glucose Level 87 # Calcium Level 8.7 Magnesium Level 2.1 Test 08/08/16 11:46 Bedside Glucose 126 Medications Medications Current Medications Ondansetron HCl (Zofran Inj) 4 mg Q6H PRN IV NAUSEA AND/OR VOMITING Last administered on 08/07/16 12:15; Admin Dose 4 MG; Start 08/06/16 at 04:30 Acetaminophen (Tylenol Tab) 650 mg Q6H PRN PO PAIN LEVEL 1-3 OR FEVER; Start at 04:30 Famotidine (Pepcid) 20 mg DAILY PO Last administered on 08/08/16 08:46; Admin Dose 20 MG; Start 08/06/16 at 09:00 Heparin Sodium (Porcine) (Heparin (5000 Units/0.5 ml)) 5,000 unit Q8 SC Last administered on 08/08/16 05:47; Admin Dose 5,000 UNIT; Start 08/06/16 at 06:00 Amlodipine Besylate (Norvasc) 5 mg DAILY PO Last administered on 08/08/16 08: 46; Admin Dose 5 MG; Start 08/06/16 at 09:00 Enalapril Maleate (Vasotec) 10 mg DAILY PO Last administered on 08/08/16 08:46 ; Admin Dose 10 MG; Start 08/06/16 at 09:00 Escitalopram Oxalate (Lexapro) 10 mg DAILY PO Last administered on 08/08/16 08 :45; Admin Dose 10 MG; Start 08/06/16 at 09:00 Furosemide (Lasix) 40 mg DAILY@06 PO Last administered on 08/08/16 05:40; Admin Dose 40 MG; Start 08/06/16 at 06:00 Hydralazine HCl (Apresoline) 100 mg TID PO Last administered on 08/08/16 08:45 ; Admin Dose 100 MG; Start 08/06/16 at 09:00 Isosorbide Dinitrate (Isordil) 20 mg TID PO Last administered on 08/08/16 08: 45; Admin Dose 20 MG; Start 08/06/16 at 09:00 Miscellaneous Information 1 ea NOTE XX ; Start 08/06/16 at 04:30 Glucose (Glutose) 15 gm Q15M PRN PO DECREASED GLUCOSE; Start 08/06/16 at 04:30 Glucose (Glutose) 22.5 gm Q15M PRN PO DECREASED GLUCOSE; Start 08/06/16 at 04: 30 Dextrose (D50w Syringe) 25 ml Q15M PRN IV DECREASED GLUCOSE; Start 08/06/16 at 04:30 Dextrose (D50w Syringe) 50 ml Q15M PRN IV DECREASED GLUCOSE; Start 08/06/16 at 04:30 Glucagon (Glucagen) 1 mg Q15M PRN IM DECREASED GLUCOSE; Start 08/06/16 at 04:30 Glucose (Glutose) 15 gm Q15M PRN BUCCAL DECREASED GLUCOSE; Start 08/06/16 at 04 :30 Hydralazine HCl (Apresoline) 10 mg Q6H PRN IV SBP >160; Start 08/06/16 at 09:30 Morphine Sulfate (morphine) 2 mg Q4H PRN IV pain Last administered on 08:41; Admin Dose 2 MG; Start 08/06/16 at 10:00 Allopurinol (Zyloprim) 100 mg DAILY PO Last administered on 08/08/16 08:47; Admin Dose 100 MG; Start 08/07/16 at 09:00 Insulin Glargine (Lantus) 20 unit QHS SC Last administered on 08/07/16 21:23; Admin Dose 20 UNIT; Start 08/07/16 at 21:00 Atorvastatin Calcium (Lipitor) 40 mg HS PO Last administered on 08/07/16 21:19 ; Admin Dose 40 MG; Start 08/07/16 at 21:00 Carvedilol (Coreg) 6.25 mg BID PO Last administered on 08/08/16 08:45; Admin Dose 6.25 MG; Start 08/07/16 at 21:00 LAZARO BLANCA August 08, 2016 12:08
--- NOTE | 2016-08-08 15:50 | CONS ---
DATE OF ADMISSION: 08/08/2016 DATE OF CONSULTATION: 08/08/2016 TYPE OF CONSULTATION: Cardiology. REASON FOR CONSULTATION: Chest pain, assess for acute coronary syndrome. REQUESTING PHYSICIAN: Dr. Tiago Shepherd and Dr. Colby from the hospitalist service. HISTORY OF PRESENT ILLNESS: Ms. Ramsey is a 45-year-old female with a history of end-stage renal di sease on hemodialysis, hypothyroidism, diabetes mellitus, cardiomyopathy and hypertension who initia lly presented from her dialysis clinic with a nonfunctioning dialysis catheter and has complaints of substernal chest pain, somewhat poorly described. Upon arrival, temperature 97.9, blood pressure 1 83/79, pulse 76, respiratory rate 18, saturating 98%. The patient's initial labs were notable for w mare count of 8, hemoglobin 13.3, platelet count 212, a sodium 136, potassium 3.6, creatinine 2.3, B UN 42, glucose 259. INR 0.95. Troponin negative. The patient underwent a chest x-ray revealing no evidence of acute cardiopulmonary disease, mild cardiomegaly. Patient's electrocardiogram revealed sinus rhythm, rate of 71, normal axis, normal intervals, left ventricular hypertrophy by voltage cr iteria with an inferolateral biphasic T-wave abnormalities. Patient subsequently admitted to the [facility] and since admit to the floor, has undergone placement of a right-sided hemodialysis catheter. T he patient continues to have intermittent chest pain. The patient has had a total of 3 negative tro ponins. The patient underwent a 2D echo performed by myself that revealed a significantly depressed EF approximately 35% with diastolic dysfunction, trace mitral and tricuspid regurgitation as well a s trace pulmonic regurgitation. PAST MEDICAL HISTORY: As above in HPI. MEDICATIONS CURRENTLY IN HOSPITAL: 1. Heparin 5000 subq b.i.d. 2. Lantus 20 units subcu at bedtime. 3. Lipitor 20 mg at bedtime. 4. Carvedilol 6.25 mg p.o. b.i.d. 5. Allopurinol 100 mg daily. 6. Insulin sliding scale. 7. Hydralazine p.r.n. 8. Norvasc 5 mg daily. 9. Vasotec 10 mg daily. 10. Lexapro 10 mg daily. 11. Hydralazine p.o. 100 mg 2 p.o. t.i.d. 12. ____20 mg p.o. t.i.d. 13. Heparin 5000 subq q.8h. 14. Lasix 40 mg daily. ALLERGIES: PENICILLIN. SOCIAL HISTORY: No tobacco, ETOH or illicit drug use. FAMILY HISTORY: Negative for sudden cardiac or early CAD. REVIEW OF SYSTEMS: As above in HPI. CONSTITUTIONAL: No fevers, chills. PULMONARY: Shortness of breath. CARDIOVASCULAR: Intermittent chest pain. GASTROINTESTINAL: No vomiting. GENITOURINARY: End-stage renal disease. PSYCHIATRIC: Per medications. NEUROLOGIC: No documented history of CVA. ENDOCRINE: Diabetes mellitus. PHYSICAL EXAMINATION: VITAL SIGNS: Temperature of 98.5, blood pressure 120/62, pulse 65, respiratory rate 18, saturating 92%. GENERAL: The patient is alert, awake, complaining of right-sided chest pain. NECK: JVP approximately 9 cm water. CHEST: Decreased breath sounds at bases bilaterally. HEART: Regular rate and rhythm. S1, S2, I/ systolic murmur, nondisplaced PMI. ABDOMEN: Positive bowel sounds, soft. EXTREMITIES: Trace edema, 1+ pulses bilaterally, posterior tibial. LABORATORY DATA: As above in HPI with most recently from today, sodium 138, potassium 3.7, creatini ne 3.7, BUN of 42. White count 8.7, hemoglobin 12.1, platelet count 209. INR 0.95. IMAGING STUDIES: As above in HPI. No further imaging studies for my review at this time. ELECTROCARDIOGRAM: As above in HPI. No further electrograms. MAC with a followup EKG from re vealing normal sinus rhythm at a rate of 70, normal axis, normal intervals with inferior lateral bip hasic T-wave abnormalities, unchanged. IMPRESSION: 1. Chest pain, assess for acute coronary syndrome with negative troponins x3. 2. Abnormal electrocardiogram, assess for acute coronary syndrome. 3. Cardiomyopathy with decreased left ventricular ejection fraction. 4. Hypertension. 5. End-stage renal disease on hemodialysis. 6. Dyslipidemia. 7. Diabetes mellitus. RECOMMENDATIONS: 1. At this time, would maintain the patient on telemetry monitoring to follow rhythm and rate close ly. 2. Would check serial EKGs to assess for any significant ongoing changes. EKG in the morning and E KG for any complaints of chest pain or change in rhythm. 3. Would continue the patient's current antihypertensives with Carvedilol, Norvasc, Hydralazine and Isordil for antianginal effects. 4. Hemodialysis for volume removal. 5. We will schedule patient for Lexiscan stress test to assess for any possible ischemia lending to the patient's chest pain and findings of decreased EF by 2D echo. Given decreased EF, we will armando tionally consider initiation of low dose KAROL inhibitor. Thank you for allowing me to take part in the care of this patient. I will continue to follow along very closely with you. Further recommendations will be made as the patient progresses through his inpatient hospital clinical course. Dictated By: EVELIO MCDONOUGH/NTS Conf#: [id number] DID#: [id number] CC: TIAGO SHEPHERD MD; MELITON COLBY MD;*End*
[2016-08-08] MEDS: LISINOPRIL 5 MG TAB PO SCH (16:02)
--- NOTE | 2016-08-08 17:48 | RADRPT ---
PROCEDURE: CT Head without contrast. CLINICAL INDICATION: Encephalopathy TECHNIQUE: The study was performed utilizing a GE 64-slice multidetector CT scanner. Direct spiral axial CT images of the brain were obtained from the vertex to the skull base without contrast. The CTDI vol is 89.74 mGy and the DLP is 720.23 mGy-cm. The images were reviewed on a PACS workstation. COMPARISON: No prior studies are available for comparison. FINDINGS: Exam is limited secondary to motion artifact. Mild diffuse cerebral atrophy is seen with a compensa tory ventricular enlargement. The logan-white matter differentiation is maintained. No intra or ext ra-axial fluid collection or mass effect or shift in the midline structures is seen. The visualized paranasal sinuses, mastoid air cells, orbits, and calvarium are unremarkable. IMPRESSION: 1. Limited examination secondary to motion artifact. 2. Otherwise, no acute intracranial pathology. 3. Mild diffuse cerebral volume loss. RPTAT: HPNM Physician Arthur Date Time Electronically viewed and signed by Physician Arthur on 08/08/2016 17:47 /
--- NOTE | 2016-08-08 19:32 | RADRPT ---
Vent Rate: 70 bpm RR Interval: 0 msec [place] Interval: 142 msec QRS Duration: 84 msec QT Interval: 420 msec QTC Interval: 453 msec P-R-T [place]: 44 - 4 - 166 degrees Normal sinus rhythm Left ventricular hypertrophy with repolarization abnormality Abnormal ECG Electronically Signed By: Da Sorenson [id number]
[2016-08-08] MEDS: ATORVASTATIN 40 MG TAB PO SCH (21:26)
[2016-08-08] MEDS: INSULIN GLARGINE [LANtus] 3 ML PEN SC SCH (21:38)
[2016-08-09] VITALS (21 sets, daily range): BP systolic 99–187; BP diastolic 55–82; PULSE 62–80; RESP 18–20
[2016-08-09] MEDS: FUROSEMIDE 40 MG TAB PO SCH (06:00)
[2016-08-09] MEDS: LEVOTHYROXINE 25 MCG TAB PO SCH (06:24)
[2016-08-09 06:51] LABS: ADD SCAN DIFF NO
[2016-08-09 06:52] LABS: BASOPHILS % 0.4 % (0.0-2.0); EOSINOPHILS # 0.2 10^3/ul (0.0-0.5); EOSINOPHILS % 2.9 % (0.0-7.0); HEMATOCRIT 35.8 % (37.0-47.0); HEMOGLOBIN 11.7 g/dl (12.0-16.0); LYMPHOCYTES # 1.8 10^3/ul (0.8-2.9); LYMPHOCYTES % 21.4 % (15.0-51.0); MEAN CORPUSCULAR HEMOGLOBIN 30.2 pg (29.0-33.0); MEAN CORPUSCULAR HGB CONC 32.7 g/dl (32.0-37.0); MEAN CORPUSCULAR VOLUME 92.3 fl (82.0-101.0); MEAN PLATELET VOLUME 11.1 fl (7.4-10.4); MONOCYTE # 0.7 10^3/ul (0.3-0.9); MONOCYTES % 8.1 % (0.0-11.0); NEUTROPHIL # 5.6 10^3/ul (1.6-7.5); PLATELET COUNT 187 10^3/UL (140-415); RED BLOOD COUNT 3.88 10^6/ul (4.20-5.40); RED CELL DISTRIBUTION WIDTH 13.3 % (11.5-14.5); WHITE BLOOD COUNT 8.3 10^3/ul (4.8-10.8)
[2016-08-09 07:13] LABS: CALCIUM 8.7 mg/dl (8.4-10.2); CREATININE 4.21 mg/dl (0.44-1.00); POTASSIUM 3.9 mmol/L (3.5-5.1)
[2016-08-09] MEDS: LISINOPRIL 5 MG TAB PO SCH (07:35)
[2016-08-09] MEDS: AMLODIPINE 5 MG TAB PO SCH (07:35)
[2016-08-09] MEDS: ENALAPRIL 10 MG TAB PO SCH (07:35)
[2016-08-09 07:37] LABS: THYROID STIMULATING HORMONE 2.56 MIU/L (0.465-4.680)
[2016-08-09] MEDS: INSULIN ASPART [NOVOLOG] 3 ML PEN SC SCH ×6 (07:55→16:24)
[2016-08-09] MEDS: ISOSORBIDE DINITRATE 20 MG TAB PO SCH ×3 (09:00→20:02)
[2016-08-09] MEDS ORDERED: REGADENOSON 0.4 MG/5 ML SYG ONE (11:32)
--- NOTE | 2016-08-09 12:25 | PN ---
Date/Time of Note Date/Time of Note DATE: 08/09/16 TIME: 12:25 Assessment/Plan VTE Prophylaxis VTE Prophylaxis Intervention: heparin Lines/Catheters IV Catheter Type (from Nrs): Saline Lock Urinary Cath still in place: No Assessment/Plan Assessment/Plan This is a 45-year-old female being admitted to telemetry floor for: #1 Nonfunctioning dialysis catheter: Catheter has been replaced, patient underwent dialysis yesterday. Further dialysis per nephrology #2 Chest pain: Persistent despite nitrates therapy. Receive morphine today. Multiple PVCs on monitor. Stress test today #3 end-stage renal disease: On hemodialysis #4 hypothyroidism: Continue levothyroxine #5 diabetes mellitus: Lantus on hold for n.p.o. status, will resume once commenced on a diet #6 Hypertension: Continue current medications #7 Cardiomyopathy with ejection fraction of 35%, and diastolic dysfunction: Patient continues on aspirin, statin, beta-aiden, and KAROL inhibitor therapy #8 Acute encephalopathy: Patient had a transient period of unresponsiveness while alert, with a blank affect, which lasted a few minutes. Highly suggestive of seizure. CT of the brain negative, follow-up neurology recommendations and EEG. DVT and GI prophylaxis: Heparin, famotidine Subjective 24 Hr Interval Summary Free Text/Dictation Patient has no new complaints. No more blanking out episodes. Exam/Review of Systems Vital Signs Vitals Vital Signs Date Time Temp Pulse Resp B/P Pulse Ox O2 Delivery O2 Flow Rate FiO2 08/09/16 12:23 97.8 71 18 122/55 97 Room Air 08/07/16 14:30 3 Intake and Output 08/08/16 08/08/16 08/09/16 15:00 23:00 07:00 Intake Total 970 ml 650 ml Balance 970 ml 650 ml Exam Constitutional: alert, oriented Head: atraumatic, normocephalic Neck: non-tender, supple Respiratory: clear to auscultation Cardiovascular: regular rate and rhythm Gastrointestinal: nl liver, spleen, non-tender, soft Extremities: normal pulses Results Result Diagram: 08/09/16 0607 08/09/16 0607 Results 24 hrs Laboratory Tests Test 08/08/16 17:07 08/08/16 21:35 08/09/16 06:07 08/09/16 08:02 Bedside Glucose 181 251 H 105 White Blood Count 8.3 Red Blood Count 3.88 L Hemoglobin 11.7 L Hematocrit 35.8 L Mean Corpuscular Volume 92.3 Mean Corpuscular Hemoglobin 30.2 Mean Corpuscular Hemoglobin Concent 32.7 Red Cell Distribution Width 13.3 Platelet Count 187 Mean Platelet Volume 11.1 H Neutrophils % 67.0 Lymphocytes % 21.4 Monocytes % 8.1 Eosinophils % 2.9 Basophils % 0.4 Nucleated Red Blood Cells % 0.0 Neutrophils # 5.6 Lymphocytes # 1.8 Monocytes # 0.7 Eosinophils # 0.2 Basophils # 0.0 Nucleated Red Blood Cells # 0.0 Sodium Level 133 L Potassium Level 3.9 Chloride Level 100 Carbon Dioxide Level 27 Anion Gap 10 # Blood Urea Nitrogen 57 H Creatinine 4.21 H Glucose Level 115 Calcium Level 8.7 Thyroid Stimulating Hormone (TSH) 2.560 Test 08/09/16 11:25 Bedside Glucose 132 Medications Medications Current Medications Ondansetron HCl (Zofran Inj) 4 mg Q6H PRN IV NAUSEA AND/OR VOMITING Last administered on 08/07/16 12:15; Admin Dose 4 MG; Start 08/06/16 at 04:30 Acetaminophen (Tylenol Tab) 650 mg Q6H PRN PO PAIN LEVEL 1-3 OR FEVER; Start at 04:30 Famotidine (Pepcid) 20 mg DAILY PO Last administered on 08/08/16 08:46; Admin Dose 20 MG; Start 08/06/16 at 09:00 Amlodipine Besylate (Norvasc) 5 mg DAILY PO Last administered on 08/08/16 08: 46; Admin Dose 5 MG; Start 08/06/16 at 09:00 Enalapril Maleate (Vasotec) 10 mg DAILY PO Last administered on 08/08/16 08:46 ; Admin Dose 10 MG; Start 08/06/16 at 09:00 Escitalopram Oxalate (Lexapro) 10 mg DAILY PO Last administered on 08/08/16 08 :45; Admin Dose 10 MG; Start 08/06/16 at 09:00 Furosemide (Lasix) 40 mg DAILY@06 PO Last administered on 08/08/16 05:40; Admin Dose 40 MG; Start 08/06/16 at 06:00 Hydralazine HCl (Apresoline) 100 mg TID PO Last administered on 08/08/16 21:27 ; Admin Dose 100 MG; Start 08/06/16 at 09:00 Isosorbide Dinitrate (Isordil) 20 mg TID PO Last administered on 08/08/16 21: 26; Admin Dose 20 MG; Start 08/06/16 at 09:00 Miscellaneous Information 1 ea NOTE XX ; Start 08/06/16 at 04:30 Glucose (Glutose) 15 gm Q15M PRN PO DECREASED GLUCOSE; Start 08/06/16 at 04:30 Glucose (Glutose) 22.5 gm Q15M PRN PO DECREASED GLUCOSE; Start 08/06/16 at 04: 30 Dextrose (D50w Syringe) 25 ml Q15M PRN IV DECREASED GLUCOSE; Start 08/06/16 at 04:30 Dextrose (D50w Syringe) 50 ml Q15M PRN IV DECREASED GLUCOSE; Start 08/06/16 at 04:30 Glucagon (Glucagen) 1 mg Q15M PRN IM DECREASED GLUCOSE; Start 08/06/16 at 04:30 Glucose (Glutose) 15 gm Q15M PRN BUCCAL DECREASED GLUCOSE; Start 08/06/16 at 04 :30 Hydralazine HCl (Apresoline) 10 mg Q6H PRN IV SBP >160; Start 08/06/16 at 09:30 Morphine Sulfate (morphine) 2 mg Q4H PRN IV pain Last administered on 08:41; Admin Dose 2 MG; Start 08/06/16 at 10:00 Allopurinol (Zyloprim) 100 mg DAILY PO Last administered on 08/08/16 08:47; Admin Dose 100 MG; Start 08/07/16 at 09:00 Insulin Glargine (Lantus) 20 unit QHS SC Last administered on 08/08/16 21:38; Admin Dose 20 UNIT; Start 08/07/16 at 21:00 Atorvastatin Calcium (Lipitor) 40 mg HS PO Last administered on 08/08/16 21:26 ; Admin Dose 40 MG; Start 08/07/16 at 21:00 Carvedilol (Coreg) 6.25 mg BID PO Last administered on 08/08/16 21:26; Admin Dose 6.25 MG; Start 08/07/16 at 21:00 Heparin Sodium (Porcine) (Heparin (5000 Units/0.5 ml)) 5,000 unit BID SC Last administered on 08/08/16 21:37; Admin Dose 5,000 UNIT; Start 08/08/16 at 21:00 Lisinopril (Zestril) 2.5 mg DAILY PO Last administered on 08/08/16 16:02; Admin Dose 2.5 MG; Start 08/08/16 at 15:30 Procedures Procedures PROCEDURE: CT Head without contrast. CLINICAL INDICATION: Encephalopathy TECHNIQUE: The study was performed utilizing a GE 64-slice multidetector CT scanner. Direct spiral axial CT images of the brain were obtained from the vertex to the skull base without contrast. The CTDI vol is 89.74 mGy and the DLP is 720.23 mGy-cm. The images were reviewed on a PACS workstation. COMPARISON: No prior studies are available for comparison. FINDINGS: Exam is limited secondary to motion artifact. Mild diffuse cerebral atrophy is seen with a compensatory ventricular enlargement. The logan-white matter differentiation is maintained. No intra or extra-axial fluid collection or mass effect or shift in the midline structures is seen. The visualized paranasal sinuses, mastoid air cells, orbits, and calvarium are unremarkable. IMPRESSION: 1. Limited examination secondary to motion artifact. 2. Otherwise, no acute intracranial pathology. 3. Mild diffuse cerebral volume loss. RPTAT: HPNM Physician Arthur Date Time Electronically viewed and signed by Physician Arthur on 08/08/2016 17 :47 / CC: MELITON COLBY BOLATITO M. August 09, 2016 12:25
--- NOTE | 2016-08-09 12:26 | CONS ---
Date/Time of Note Date/Time of Note DATE: 08/09/16 TIME: 12:19 Assessment/Plan Assessment/Plan Chief Complaint/Hosp Course Shaking of whole-body Problems: Additional Assessment/Plan Patient is a 45-year-old female with a history of end-stage renal disease on hemodialysis, hypothyroidism, diabetes mellitus, cardiomyopathy and hypertension who initially presented from her dialysis clinic with a nonfunctioning dialysis catheter and has complaints of substernal chest pain, somewhat poorly described. Patient subsequently has undergone placement of a right-sided hemodialysis catheter. The patient underwent a 2D echo which showed significantly depressed EF approximately 35% with diastolic dysfunction, trace mitral and tricuspid regurgitation as well as trace pulmonic regurgitation. She started with shaking of her arms or legs after admission to the hospital. There is no history of seizure activity or loss of consciousness. No history of tongue bite or incontinence. CT scan of the brain showed mild diffuse cerebral volume loss, otherwise unremarkable. Her symptoms does not appear to be seizure activity instead myoclonus is more likely. Plan 1 MRI of the brain 2 start on clonazepam 0.5 mg p.o. twice daily 3 we will follow Consultation Date/Type/Reason Admit Date/Time August 08, 2016 at 09:01 Date of Consultation: August 09, 2016 Reason for Consultation Shaking of arms and legs Hx of Present Illness Patient is a 45-year-old female with a history of end-stage renal disease on hemodialysis, hypothyroidism, diabetes mellitus, cardiomyopathy and hypertension who initially presented from her dialysis clinic with a nonfunctioning dialysis catheter and has complaints of substernal chest pain, somewhat poorly described. Patient subsequently has undergone placement of a right-sided hemodialysis catheter. The patient underwent a 2D echo which showed significantly depressed EF approximately 35% with diastolic dysfunction, trace mitral and tricuspid regurgitation as well as trace pulmonic regurgitation. She started with shaking of her arms or legs after admission to the hospital. There is no history of seizure activity or loss of consciousness. No history of tongue bite or incontinence. CT scan of the brain showed mild diffuse cerebral volume loss, otherwise unremarkable. Constitutional: no complaints Eyes: no complaints ENT: no complaints Respiratory: no complaints Cardiovascular: chest pain, other (PVCs on monitor) Gastrointestinal: no complaints Genitourinary: no complaints Musculoskeletal: no complaints Skin: no complaints Neurologic: other (Shaking) Endocrine: no complaints Lymphatic: no complaints Psychological: anxiety, nl mood/affect, no complaints Immunologic: no complaints Past Medical History Medical History: diabetes, high cholesterol, hypothyroid, other (Cardiomyopathy ) Social History Alcohol Use: none Smoking Status: Never smoker Drug Use: none Exam/Review of Systems Vital Signs Vitals Vital Signs Date Time Temp Pulse Resp B/P Pulse Ox O2 Delivery O2 Flow Rate FiO2 08/09/16 11:30 66 18 08/09/16 11:21 98.1 187/82 96 08/07/16 15:53 Room Air 08/07/16 14:30 3 Intake and Output 08/08/16 08/08/16 08/09/16 15:00 23:00 07:00 Intake Total 970 ml 650 ml Balance 970 ml 650 ml Exam Constitutional: alert, oriented, well developed Psych: nl mood/affect, no complaints Head: atraumatic, normocephalic Eyes: EOMI, nl conjunctiva, nl lids, nl sclera ENMT: mucosa pink and moist, nl external ears & nose, nl lips & teeth, nl nasal mucosa & septum Neck: non-tender, supple Respiratory: clear to auscultation, normal air movement Cardiovascular: nl pulses, regular rate and rhythm Gastrointestinal: nl liver, spleen, non-tender, soft Extremities: normal pulses Neurological: MEDIA SERVICES COORDINATOR II-XII intact, nl mental status, nl strength, other (Shaking of bilateral upper and lower extremity in a constant motion) Skin: nl turgor, rash or lesions Lymph: nl lymph nodes Results Result Diagram: 08/09/16 0607 08/09/16 0607 Results 24 hrs Laboratory Tests Test 08/08/16 17:07 08/08/16 21:35 08/09/16 06:07 08/09/16 08:02 Bedside Glucose 181 251 H 105 White Blood Count 8.3 Red Blood Count 3.88 L Hemoglobin 11.7 L Hematocrit 35.8 L Mean Corpuscular Volume 92.3 Mean Corpuscular Hemoglobin 30.2 Mean Corpuscular Hemoglobin Concent 32.7 Red Cell Distribution Width 13.3 Platelet Count 187 Mean Platelet Volume 11.1 H Neutrophils % 67.0 Lymphocytes % 21.4 Monocytes % 8.1 Eosinophils % 2.9 Basophils % 0.4 Nucleated Red Blood Cells % 0.0 Neutrophils # 5.6 Lymphocytes # 1.8 Monocytes # 0.7 Eosinophils # 0.2 Basophils # 0.0 Nucleated Red Blood Cells # 0.0 Sodium Level 133 L Potassium Level 3.9 Chloride Level 100 Carbon Dioxide Level 27 Anion Gap 10 # Blood Urea Nitrogen 57 H Creatinine 4.21 H Glucose Level 115 Calcium Level 8.7 Thyroid Stimulating Hormone (TSH) 2.560 Test 08/09/16 11:25 Bedside Glucose 132 Medications Medications Current Medications Ondansetron HCl (Zofran Inj) 4 mg Q6H PRN IV NAUSEA AND/OR VOMITING Last administered on 08/07/16 12:15; Admin Dose 4 MG; Start 08/06/16 at 04:30 Acetaminophen (Tylenol Tab) 650 mg Q6H PRN PO PAIN LEVEL 1-3 OR FEVER; Start at 04:30 Famotidine (Pepcid) 20 mg DAILY PO Last administered on 08/08/16 08:46; Admin Dose 20 MG; Start 08/06/16 at 09:00 Amlodipine Besylate (Norvasc) 5 mg DAILY PO Last administered on 08/08/16 08: 46; Admin Dose 5 MG; Start 08/06/16 at 09:00 Enalapril Maleate (Vasotec) 10 mg DAILY PO Last administered on 08/08/16 08:46 ; Admin Dose 10 MG; Start 08/06/16 at 09:00 Escitalopram Oxalate (Lexapro) 10 mg DAILY PO Last administered on 08/08/16 08 :45; Admin Dose 10 MG; Start 08/06/16 at 09:00 Furosemide (Lasix) 40 mg DAILY@06 PO Last administered on 08/08/16 05:40; Admin Dose 40 MG; Start 08/06/16 at 06:00 Hydralazine HCl (Apresoline) 100 mg TID PO Last administered on 08/08/16 21:27 ; Admin Dose 100 MG; Start 08/06/16 at 09:00 Isosorbide Dinitrate (Isordil) 20 mg TID PO Last administered on 08/08/16 21: 26; Admin Dose 20 MG; Start 08/06/16 at 09:00 Miscellaneous Information 1 ea NOTE XX ; Start 08/06/16 at 04:30 Glucose (Glutose) 15 gm Q15M PRN PO DECREASED GLUCOSE; Start 08/06/16 at 04:30 Glucose (Glutose) 22.5 gm Q15M PRN PO DECREASED GLUCOSE; Start 08/06/16 at 04: 30 Dextrose (D50w Syringe) 25 ml Q15M PRN IV DECREASED GLUCOSE; Start 08/06/16 at 04:30 Dextrose (D50w Syringe) 50 ml Q15M PRN IV DECREASED GLUCOSE; Start 08/06/16 at 04:30 Glucagon (Glucagen) 1 mg Q15M PRN IM DECREASED GLUCOSE; Start 08/06/16 at 04:30 Glucose (Glutose) 15 gm Q15M PRN BUCCAL DECREASED GLUCOSE; Start 08/06/16 at 04 :30 Hydralazine HCl (Apresoline) 10 mg Q6H PRN IV SBP >160; Start 08/06/16 at 09:30 Morphine Sulfate (morphine) 2 mg Q4H PRN IV pain Last administered on 08:41; Admin Dose 2 MG; Start 08/06/16 at 10:00 Allopurinol (Zyloprim) 100 mg DAILY PO Last administered on 08/08/16 08:47; Admin Dose 100 MG; Start 08/07/16 at 09:00 Insulin Glargine (Lantus) 20 unit QHS SC Last administered on 08/08/16 21:38; Admin Dose 20 UNIT; Start 08/07/16 at 21:00 Atorvastatin Calcium (Lipitor) 40 mg HS PO Last administered on 08/08/16 21:26 ; Admin Dose 40 MG; Start 08/07/16 at 21:00 Carvedilol (Coreg) 6.25 mg BID PO Last administered on 08/08/16 21:26; Admin Dose 6.25 MG; Start 08/07/16 at 21:00 Heparin Sodium (Porcine) (Heparin (5000 Units/0.5 ml)) 5,000 unit BID SC Last administered on 08/08/16 21:37; Admin Dose 5,000 UNIT; Start 08/08/16 at 21:00 Lisinopril (Zestril) 2.5 mg DAILY PO Last administered on 08/08/16 16:02; Admin Dose 2.5 MG; Start 08/08/16 at 15:[address] scan of the brain 08/08/2016 IMPRESSION: 1. Limited examination secondary to motion artifact. 2. Otherwise, no acute intracranial pathology. 3. Mild diffuse cerebral volume loss. RPTAT: HPNM Harman Mariscal, Physician Date Time Electronically viewed and signed by Harman Mariscal, Physician on 08/08/2016 17 :47 KWAME LICONA MD August 09, 2016 12:26
--- NOTE | 2016-08-09 13:18 | CONS ---
Date/Time of Note Date/Time of Note DATE: 08/09/16 TIME: 13:17 Assessment/Plan Assessment/Plan Chief Complaint/Hosp Course 1. The patient has malfunctioning port of the dialysis catheter, broken per dialysis nurse. 2. End-stage renal disease. 3. Hypertension. 4. Diabetes mellitus. 5. Hypothyroidism. 6. Cardiomyopathy. 7. Decreased ejection fraction. 8. Systolic heart failure. 9. History of anasarca. 10. History of thoracentesis. 11. Underlying diabetic nephropathy. Problems: Additional Assessment/Plan 1. continue HD Consultation Date/Type/Reason Admit Date/Time August 08, 2016 at 09:01 Initial Consult Date 08/08/2016 Type of Consultation: renal Exam/Review of Systems Vital Signs Vitals Vital Signs Date Time Temp Pulse Resp B/P Pulse Ox O2 Delivery O2 Flow Rate FiO2 08/09/16 12:59 66 08/09/16 12:23 97.8 18 122/55 97 Room Air 08/07/16 14:30 3 Intake and Output 08/08/16 08/08/16 08/09/16 15:00 23:00 07:00 Intake Total 970 ml 650 ml Balance 970 ml 650 ml Exam unable to see pt, she is in radiology dept Results Result Diagram: 08/09/16 0607 08/09/16 0607 Results 24 hrs Laboratory Tests Test 08/08/16 17:07 08/08/16 21:35 08/09/16 06:07 08/09/16 08:02 Bedside Glucose 181 251 H 105 White Blood Count 8.3 Red Blood Count 3.88 L Hemoglobin 11.7 L Hematocrit 35.8 L Mean Corpuscular Volume 92.3 Mean Corpuscular Hemoglobin 30.2 Mean Corpuscular Hemoglobin Concent 32.7 Red Cell Distribution Width 13.3 Platelet Count 187 Mean Platelet Volume 11.1 H Neutrophils % 67.0 Lymphocytes % 21.4 Monocytes % 8.1 Eosinophils % 2.9 Basophils % 0.4 Nucleated Red Blood Cells % 0.0 Neutrophils # 5.6 Lymphocytes # 1.8 Monocytes # 0.7 Eosinophils # 0.2 Basophils # 0.0 Nucleated Red Blood Cells # 0.0 Sodium Level 133 L Potassium Level 3.9 Chloride Level 100 Carbon Dioxide Level 27 Anion Gap 10 # Blood Urea Nitrogen 57 H Creatinine 4.21 H Glucose Level 115 Calcium Level 8.7 Thyroid Stimulating Hormone (TSH) 2.560 Test 08/09/16 11:25 Bedside Glucose 132 Medications Medications Current Medications Ondansetron HCl (Zofran Inj) 4 mg Q6H PRN IV NAUSEA AND/OR VOMITING Last administered on 08/07/16 12:15; Admin Dose 4 MG; Start 08/06/16 at 04:30 Acetaminophen (Tylenol Tab) 650 mg Q6H PRN PO PAIN LEVEL 1-3 OR FEVER; Start at 04:30 Famotidine (Pepcid) 20 mg DAILY PO Last administered on 08/08/16 08:46; Admin Dose 20 MG; Start 08/06/16 at 09:00 Amlodipine Besylate (Norvasc) 5 mg DAILY PO Last administered on 08/08/16 08: 46; Admin Dose 5 MG; Start 08/06/16 at 09:00 Enalapril Maleate (Vasotec) 10 mg DAILY PO Last administered on 08/08/16 08:46 ; Admin Dose 10 MG; Start 08/06/16 at 09:00 Escitalopram Oxalate (Lexapro) 10 mg DAILY PO Last administered on 08/08/16 08 :45; Admin Dose 10 MG; Start 08/06/16 at 09:00 Furosemide (Lasix) 40 mg DAILY@06 PO Last administered on 08/08/16 05:40; Admin Dose 40 MG; Start 08/06/16 at 06:00 Hydralazine HCl (Apresoline) 100 mg TID PO Last administered on 08/08/16 21:27 ; Admin Dose 100 MG; Start 08/06/16 at 09:00 Isosorbide Dinitrate (Isordil) 20 mg TID PO Last administered on 08/08/16 21: 26; Admin Dose 20 MG; Start 08/06/16 at 09:00 Miscellaneous Information 1 ea NOTE XX ; Start 08/06/16 at 04:30 Glucose (Glutose) 15 gm Q15M PRN PO DECREASED GLUCOSE; Start 08/06/16 at 04:30 Glucose (Glutose) 22.5 gm Q15M PRN PO DECREASED GLUCOSE; Start 08/06/16 at 04: 30 Dextrose (D50w Syringe) 25 ml Q15M PRN IV DECREASED GLUCOSE; Start 08/06/16 at 04:30 Dextrose (D50w Syringe) 50 ml Q15M PRN IV DECREASED GLUCOSE; Start 08/06/16 at 04:30 Glucagon (Glucagen) 1 mg Q15M PRN IM DECREASED GLUCOSE; Start 08/06/16 at 04:30 Glucose (Glutose) 15 gm Q15M PRN BUCCAL DECREASED GLUCOSE; Start 08/06/16 at 04 :30 Hydralazine HCl (Apresoline) 10 mg Q6H PRN IV SBP >160; Start 08/06/16 at 09:30 Morphine Sulfate (morphine) 2 mg Q4H PRN IV pain Last administered on 08:41; Admin Dose 2 MG; Start 08/06/16 at 10:00 Allopurinol (Zyloprim) 100 mg DAILY PO Last administered on 08/08/16 08:47; Admin Dose 100 MG; Start 08/07/16 at 09:00 Insulin Glargine (Lantus) 20 unit QHS SC Last administered on 08/08/16 21:38; Admin Dose 20 UNIT; Start 08/07/16 at 21:00 Atorvastatin Calcium (Lipitor) 40 mg HS PO Last administered on 08/08/16 21:26 ; Admin Dose 40 MG; Start 08/07/16 at 21:00 Carvedilol (Coreg) 6.25 mg BID PO Last administered on 08/08/16 21:26; Admin Dose 6.25 MG; Start 08/07/16 at 21:00 Heparin Sodium (Porcine) (Heparin (5000 Units/0.5 ml)) 5,000 unit BID SC Last administered on 08/08/16 21:37; Admin Dose 5,000 UNIT; Start 08/08/16 at 21:00 Lisinopril (Zestril) 2.5 mg DAILY PO Last administered on 08/08/16 16:02; Admin Dose 2.5 MG; Start 08/08/16 at 15:30 Clonazepam (Klonopin) 0.5 mg Q12 PO ; Start 08/09/16 at 21:00 LAZARO BLANCA August 09, 2016 13:18
[2016-08-09] MEDS ORDERED: METOPROLOL 5 MG INJ IV ONE ×2 (15:00)
--- NOTE | 2016-08-09 15:15 | CONS ---
Date/Time of Note Date/Time of Note DATE: 08/09/16 TIME: 15:12 Assessment/Plan Assessment/Plan Additional Assessment/Plan Atypical chest pain Labile Hypertension Diabetes Dyslipidemia ESRD on HD Systolic dysfunction with Ef 35% by echo Awaiting stress test Continue Lisinopril and Norvasc Continue Lipitor Continue Insulin Continue HD as scheduled Continue GI and DVT Prophylaxis Consultation Date/Type/Reason Admit Date/Time August 08, 2016 at 09:01 Constitutional: no complaints Eyes: no complaints ENT: no complaints Respiratory: no complaints Cardiovascular: chest pain, other (PVCs on monitor) Gastrointestinal: no complaints Genitourinary: no complaints Musculoskeletal: no complaints Skin: no complaints Neurologic: other (Shaking) Endocrine: no complaints Lymphatic: no complaints Psychological: nl mood/affect, no complaints Immunologic: no complaints Past Medical History Medical History: diabetes, high cholesterol, hypothyroid, other (Cardiomyopathy ) Social History Alcohol Use: none Smoking Status: Never smoker Drug Use: none Exam/Review of Systems Vital Signs Vitals Vital Signs Date Time Temp Pulse Resp B/P Pulse Ox O2 Delivery O2 Flow Rate FiO2 08/09/16 12:59 66 08/09/16 12:23 97.8 18 122/55 97 Room Air 08/07/16 14:30 3 Intake and Output 08/08/16 08/08/16 08/09/16 14:59 22:59 06:59 Intake Total 970 ml 650 ml Balance 970 ml 650 ml Exam Constitutional: alert, oriented Head: atraumatic, normocephalic Neck: non-tender, supple Respiratory: clear to auscultation Cardiovascular: regular rate and rhythm Gastrointestinal: nl liver, spleen, non-tender, soft Extremities: normal pulses Results Result Diagram: 08/09/16 0607 08/09/16 0607 Results 24 hrs Laboratory Tests Test 08/08/16 17:07 08/08/16 21:35 08/09/16 06:07 08/09/16 08:02 Bedside Glucose 181 251 H 105 White Blood Count 8.3 Red Blood Count 3.88 L Hemoglobin 11.7 L Hematocrit 35.8 L Mean Corpuscular Volume 92.3 Mean Corpuscular Hemoglobin 30.2 Mean Corpuscular Hemoglobin Concent 32.7 Red Cell Distribution Width 13.3 Platelet Count 187 Mean Platelet Volume 11.1 H Neutrophils % 67.0 Lymphocytes % 21.4 Monocytes % 8.1 Eosinophils % 2.9 Basophils % 0.4 Nucleated Red Blood Cells % 0.0 Neutrophils # 5.6 Lymphocytes # 1.8 Monocytes # 0.7 Eosinophils # 0.2 Basophils # 0.0 Nucleated Red Blood Cells # 0.0 Sodium Level 133 L Potassium Level 3.9 Chloride Level 100 Carbon Dioxide Level 27 Anion Gap 10 # Blood Urea Nitrogen 57 H Creatinine 4.21 H Glucose Level 115 Calcium Level 8.7 Thyroid Stimulating Hormone (TSH) 2.560 Test 08/09/16 11:25 08/09/16 13:37 Bedside Glucose 132 136 Medications Medications Current Medications Ondansetron HCl (Zofran Inj) 4 mg Q6H PRN IV NAUSEA AND/OR VOMITING Last administered on 08/07/16 12:15; Admin Dose 4 MG; Start 08/06/16 at 04:30 Acetaminophen (Tylenol Tab) 650 mg Q6H PRN PO PAIN LEVEL 1-3 OR FEVER; Start at 04:30 Famotidine (Pepcid) 20 mg DAILY PO Last administered on 08/08/16 08:46; Admin Dose 20 MG; Start 08/06/16 at 09:00 Amlodipine Besylate (Norvasc) 5 mg DAILY PO Last administered on 08/08/16 08: 46; Admin Dose 5 MG; Start 08/06/16 at 09:00 Enalapril Maleate (Vasotec) 10 mg DAILY PO Last administered on 08/08/16 08:46 ; Admin Dose 10 MG; Start 08/06/16 at 09:00 Escitalopram Oxalate (Lexapro) 10 mg DAILY PO Last administered on 08/08/16 08 :45; Admin Dose 10 MG; Start 08/06/16 at 09:00 Furosemide (Lasix) 40 mg DAILY@06 PO Last administered on 08/08/16 05:40; Admin Dose 40 MG; Start 08/06/16 at 06:00 Hydralazine HCl (Apresoline) 100 mg TID PO Last administered on 08/08/16 21:27 ; Admin Dose 100 MG; Start 08/06/16 at 09:00 Isosorbide Dinitrate (Isordil) 20 mg TID PO Last administered on 08/08/16 21: 26; Admin Dose 20 MG; Start 08/06/16 at 09:00 Miscellaneous Information 1 ea NOTE XX ; Start 08/06/16 at 04:30 Glucose (Glutose) 15 gm Q15M PRN PO DECREASED GLUCOSE; Start 08/06/16 at 04:30 Glucose (Glutose) 22.5 gm Q15M PRN PO DECREASED GLUCOSE; Start 08/06/16 at 04: 30 Dextrose (D50w Syringe) 25 ml Q15M PRN IV DECREASED GLUCOSE; Start 08/06/16 at 04:30 Dextrose (D50w Syringe) 50 ml Q15M PRN IV DECREASED GLUCOSE; Start 08/06/16 at 04:30 Glucagon (Glucagen) 1 mg Q15M PRN IM DECREASED GLUCOSE; Start 08/06/16 at 04:30 Glucose (Glutose) 15 gm Q15M PRN BUCCAL DECREASED GLUCOSE; Start 08/06/16 at 04 :30 Hydralazine HCl (Apresoline) 10 mg Q6H PRN IV SBP >160; Start 08/06/16 at 09:30 Morphine Sulfate (morphine) 2 mg Q4H PRN IV pain Last administered on 08:41; Admin Dose 2 MG; Start 08/06/16 at 10:00 Allopurinol (Zyloprim) 100 mg DAILY PO Last administered on 08/08/16 08:47; Admin Dose 100 MG; Start 08/07/16 at 09:00 Insulin Glargine (Lantus) 20 unit QHS SC Last administered on 08/08/16 21:38; Admin Dose 20 UNIT; Start 08/07/16 at 21:00 Atorvastatin Calcium (Lipitor) 40 mg HS PO Last administered on 08/08/16 21:26 ; Admin Dose 40 MG; Start 08/07/16 at 21:00 Carvedilol (Coreg) 6.25 mg BID PO Last administered on 08/08/16 21:26; Admin Dose 6.25 MG; Start 08/07/16 at 21:00 Heparin Sodium (Porcine) (Heparin (5000 Units/0.5 ml)) 5,000 unit BID SC Last administered on 08/08/16 21:37; Admin Dose 5,000 UNIT; Start 08/08/16 at 21:00 Lisinopril (Zestril) 2.5 mg DAILY PO Last administered on 5/19/17at 16:02; Admin Dose 2.5 MG; Start 08/08/16 at 15:30 Clonazepam (Klonopin) 0.5 mg Q12 PO ; Start 08/09/16 at 21:00 Lorazepam (Ativan) 1 mg Q4H PRN PO ANXIETY; Start 08/09/16 at 13:30 AYLEEN IRWIN M.D. August 09, 2016 15:15
[2016-08-09] MEDS: FAMOTIDINE 20 MG TAB PO SCH (16:18)
[2016-08-09] MEDS: ESCITALOPRAM 10 MG TAB PO SCH (16:20)
[2016-08-09] MEDS: ALLOPURINOL 100 MG TAB PO SCH (16:20)
[2016-08-09] MEDS: HEPARIN 5,000 UNIT/0.5 ML VIAL SC SCH ×2 (16:23→20:09)
--- NOTE | 2016-08-09 17:06 | RADRPT ---
PROCEDURE: Nuclear medicine myocardial perfusion scan CLINICAL INDICATION: Chest pain TECHNIQUE: 27.5 mCi of technetium 99m Cardiolite was administered for the stress study. 9.3 mCi o f technetium 99m Cardiolite was administered for the resting study. The patient was stressed with 0. 4 mg of Lexiscan. Images were reviewed in the short axis, vertical long axis, and horizontal long a xis views. Wall motion was assessed and ejection fraction was calculated as well. Images were revie wed on a high-resolution PACS workstation. COMPARISON: None available FINDINGS: Left ventricular size is severely dilated. There is moderate soft tissue and bowel attenuation ander fact. The stress tomographic images demonstrate diminished perfusion along the anteroseptal wall an d the inferolateral wall. There is artifact causing diminished perfusion throughout the ventricle o n the stress images. The resting tomographic images demonstrate a similar pattern. There is better visualization on the resting images than on the stress images due to artifact. There is no evidenc e for definite reversible ischemia. Wall motion is globally diminished. The ejection fraction is c alculated at 46%. IMPRESSION: 1. Artifact on the stress images which limits optimum evaluation. 2. Diminished perfusion along the mid anteroseptal wall and the mid to distal inferolateral wall. 3. However, no evidence for definite reversible ischemia. 4. Significantly diminished wall motion with depressed ejection fraction of 46%. RPTAT: HMJB .Nir Cerna MD, MD Date Time Electronically viewed and signed by .Nir Cerna MD, MD on 08/09/2016 17:05 .B/
[2016-08-09] MEDS: ATORVASTATIN 40 MG TAB PO SCH (20:01)
[2016-08-09] MEDS: LORAZEPAM 1 MG TAB PO PRN (21:17)
[2016-08-09] MEDS: clonAZEPAM 0.5 MG TAB PO SCH (21:17)
[2016-08-09] MEDS: INSULIN GLARGINE [LANtus] 3 ML PEN SC SCH (21:23)
[2016-08-10] VITALS (11 sets, daily range): BP systolic 100–119; BP diastolic 44–57; PULSE 63–75; RESP 17–19
[2016-08-10] MEDS: LEVOTHYROXINE 25 MCG TAB PO SCH (05:41)
[2016-08-10] MEDS: FUROSEMIDE 40 MG TAB PO SCH (05:41)
[2016-08-10 06:14] LABS: ADD SCAN DIFF NO
[2016-08-10 06:20] LABS: BASOPHIL # 0.1 10^3/ul (0.0-0.1); BASOPHILS % 0.6 % (0.0-2.0); EOSINOPHILS # 0.2 10^3/ul (0.0-0.5); EOSINOPHILS % 2.5 % (0.0-7.0); HEMATOCRIT 39.6 % (37.0-47.0); HEMOGLOBIN 12.5 g/dl (12.0-16.0); LYMPHOCYTES # 1.3 10^3/ul (0.8-2.9); LYMPHOCYTES % 14.8 % (15.0-51.0); MEAN CORPUSCULAR HEMOGLOBIN 29.7 pg (29.0-33.0); MEAN CORPUSCULAR HGB CONC 31.6 g/dl (32.0-37.0); MEAN CORPUSCULAR VOLUME 94.1 fl (82.0-101.0); MEAN PLATELET VOLUME 10.2 fl (7.4-10.4); MONOCYTE # 0.6 10^3/ul (0.3-0.9); MONOCYTES % 6.8 % (0.0-11.0); NEUTROPHIL # 6.7 10^3/ul (1.6-7.5); NEUTROPHILS % 75.1 % (39.0-77.0); PLATELET COUNT 199 10^3/UL (140-415); RED BLOOD COUNT 4.21 10^6/ul (4.20-5.40); RED CELL DISTRIBUTION WIDTH 13.7 % (11.5-14.5); WHITE BLOOD COUNT 8.9 10^3/ul (4.8-10.8)
[2016-08-10 06:41] LABS: CALCIUM 8.8 mg/dl (8.4-10.2); CREATININE 4.16 mg/dl (0.44-1.00); POTASSIUM 3.9 mmol/L (3.5-5.1)
[2016-08-10] MEDS: INSULIN ASPART [NOVOLOG] 3 ML PEN SC SCH ×6 (07:55→17:36)
[2016-08-10] MEDS: clonAZEPAM 0.5 MG TAB PO SCH ×2 (08:17→20:50)
[2016-08-10] MEDS: ENALAPRIL 10 MG TAB PO SCH (08:17)
[2016-08-10] MEDS: ESCITALOPRAM 10 MG TAB PO SCH (08:17)
[2016-08-10] MEDS: AMLODIPINE 5 MG TAB PO SCH (08:17)
[2016-08-10] MEDS: ISOSORBIDE DINITRATE 20 MG TAB PO SCH (08:17)
[2016-08-10] MEDS: FAMOTIDINE 20 MG TAB PO SCH (08:18)
[2016-08-10] MEDS: LISINOPRIL 5 MG TAB PO SCH (08:18)
[2016-08-10] MEDS: ALLOPURINOL 100 MG TAB PO SCH (08:18)
[2016-08-10] MEDS: HEPARIN 5,000 UNIT/0.5 ML VIAL SC SCH ×2 (08:25→20:55)
--- NOTE | 2016-08-10 11:02 | PN ---
Date/Time of Note Date/Time of Note DATE: 08/10/16 TIME: 11:00 Assessment/Plan VTE Prophylaxis VTE Prophylaxis Intervention: heparin Lines/Catheters IV C[facility]ter Type [facility]from [facility]): [facility]ine [facility] Urinary Cath still in place: No Assessment/Plan Assessment/Plan This is a 45-year-old female being admitted to telemetry floor for: #1 Nonfunctioning dialysis catheter: Catheter has been replaced, patient underwent dialysis yesterday. Further dialysis per nephrology #2 Chest pain: Persistent despite nitrates therapy. Receive morphine today. Multiple PVCs on monitor. Stress test today #3 end-stage renal disease: On hemodialysis #4 hypothyroidism: Continue levothyroxine #5 diabetes mellitus: Lantus on hold for n.p.o. status, will resume once commenced on a diet #6 Hypertension: Continue current medications #7 Cardiomyopathy with ejection fraction of 35%, and diastolic dysfunction: Patient continues on aspirin, statin, beta-aiden, and KAROL inhibitor therapy #8 Acute encephalopathy: Patient had a transient period of unresponsiveness while alert, with a blank affect, which lasted a few minutes. Highly suggestive of seizure. CT of the brain negative, follow-up neurology recommendations and EEG. Disposition: * Stress test shows no reversible ischemia, however depressed ejection fraction noted with diminished wall motion. Follow-up cardiology recommendations * MRI ordered by neurology still pending, await findings and neurology recommendations * Continue supportive care DVT and GI prophylaxis: Heparin, famotidine Exam/Review of Systems Vital Signs Vitals Vital Signs Date Time Temp Pulse Resp B/P Pulse Ox O2 Delivery O2 Flow Rate FiO2 08/10/16 08:16 65 08/10/16 07:39 97.9 18 113/48 95 08/09/16 12:23 Room Air 08/07/16 14:30 3 Intake and Output 08/09/16 08/09/16 08/10/16 15:00 23:00 07:00 Intake Total 500 ml 550 ml 700 ml Output Total 2500 ml Balance -2000 ml 550 ml 700 ml Exam Constitutional: alert, oriented Head: atraumatic, normocephalic Neck: non-tender, supple Respiratory: clear to auscultation Cardiovascular: regular rate and rhythm Gastrointestinal: nl liver, spleen, non-tender, soft Extremities: normal pulses Results Result Diagram: 08/10/16 0550 08/10/16 0530 Results 24 hrs Laboratory Tests Test 08/09/16 11:25 08/09/16 13:37 08/09/16 16:05 08/09/16 21:16 Bedside Glucose 132 136 110 329 H Test 08/10/16 05:30 08/10/16 05:50 08/10/16 08:15 Sodium Level 140 Potassium Level 3.9 Chloride Level 106 Carbon Dioxide Level 27 Anion Gap 11 Blood Urea Nitrogen 37 #H Creatinine 4.16 H Glucose Level 69 #L Calcium Level 8.8 White Blood Count 8.9 Red Blood Count 4.21 Hemoglobin 12.5 Hematocrit 39.6 Mean Corpuscular Volume 94.1 Mean Corpuscular Hemoglobin 29.7 Mean Corpuscular Hemoglobin Concent 31.6 L Red Cell Distribution Width 13.7 Platelet Count 199 Mean Platelet Volume 10.2 Neutrophils % 75.1 Lymphocytes % 14.8 L Monocytes % 6.8 Eosinophils % 2.5 Basophils % 0.6 Nucleated Red Blood Cells % 0.0 Neutrophils # 6.7 Lymphocytes # 1.3 Monocytes # 0.6 Eosinophils # 0.2 Basophils # 0.1 Nucleated Red Blood Cells # 0.0 Bedside Glucose 106 Medications Medications Current Medications Ondansetron HCl (Zofran Inj) 4 mg Q6H PRN IV NAUSEA AND/OR VOMITING Last administered on 08/07/16 12:15; Admin Dose 4 MG; Start 08/06/16 at 04:30 Acetaminophen (Tylenol Tab) 650 mg Q6H PRN PO PAIN LEVEL 1-3 OR FEVER; Start at 04:30 Famotidine (Pepcid) 20 mg DAILY PO Last administered on 08/10/16 08:18; Admin Dose 20 MG; Start 08/06/16 at 09:00 Amlodipine Besylate (Norvasc) 5 mg DAILY PO Last administered on 08/10/16 08: 17; Admin Dose 5 MG; Start 08/06/16 at 09:00 Enalapril Maleate (Vasotec) 10 mg DAILY PO Last administered on 08/10/16 08:17 ; Admin Dose 10 MG; Start 08/06/16 at 09:00 Escitalopram Oxalate (Lexapro) 10 mg DAILY PO Last administered on 08/10/16 08 :17; Admin Dose 10 MG; Start 08/06/16 at 09:00 Furosemide (Lasix) 40 mg DAILY@06 PO Last administered on 08/10/16 05:41; Admin Dose 40 MG; Start 08/06/16 at 06:00 Hydralazine HCl (Apresoline) 100 mg TID PO Last administered on 08/10/16 08:18 ; Admin Dose 100 MG; Start 08/06/16 at 09:00 Isosorbide Dinitrate (Isordil) 20 mg TID PO Last administered on 08/10/16 08: 17; Admin Dose 20 MG; Start 08/06/16 at 09:00 Miscellaneous Information 1 ea NOTE XX ; Start 08/06/16 at 04:30 Glucose (Glutose) 15 gm Q15M PRN PO DECREASED GLUCOSE; Start 08/06/16 at 04:30 Glucose (Glutose) 22.5 gm Q15M PRN PO DECREASED GLUCOSE; Start 08/06/16 at 04: 30 Dextrose (D50w Syringe) 25 ml Q15M PRN IV DECREASED GLUCOSE; Start 08/06/16 at 04:30 Dextrose (D50w Syringe) 50 ml Q15M PRN IV DECREASED GLUCOSE; Start 08/06/16 at 04:30 Glucagon (Glucagen) 1 mg Q15M PRN IM DECREASED GLUCOSE; Start 08/06/16 at 04:30 Glucose (Glutose) 15 gm Q15M PRN BUCCAL DECREASED GLUCOSE; Start 08/06/16 at 04 :30 Hydralazine HCl (Apresoline) 10 mg Q6H PRN IV SBP >160; Start 08/06/16 at 09:30 Morphine Sulfate (morphine) 2 mg Q4H PRN IV pain Last administered on 08:41; Admin Dose 2 MG; Start 08/06/16 at 10:00 Allopurinol (Zyloprim) 100 mg DAILY PO Last administered on 08/10/16 08:18; Admin Dose 100 MG; Start 08/07/16 at 09:00 Insulin Glargine (Lantus) 20 unit QHS SC Last administered on 08/09/16 21:23; Admin Dose 20 UNIT; Start 08/07/16 at 21:00 Atorvastatin Calcium (Lipitor) 40 mg HS PO Last administered on 08/09/16 20:01 ; Admin Dose 40 MG; Start 08/07/16 at 21:00 Carvedilol (Coreg) 6.25 mg BID PO Last administered on 08/10/16 08:18; Admin Dose 6.25 MG; Start 08/07/16 at 21:00 Heparin Sodium (Porcine) (Heparin (5000 Units/0.5 ml)) 5,000 unit BID SC Last administered on 08/10/16 08:25; Admin Dose 5,000 UNIT; Start 08/08/16 at 21:00 Lisinopril (Zestril) 2.5 mg DAILY PO Last administered on 08/10/16 08:18; Admin Dose 2.5 MG; Start 08/08/16 at 15:30 Clonazepam (Klonopin) 0.5 mg Q12 PO Last administered on 08/10/16 08:17; Admin Dose 0.5 MG; Start 08/09/16 at 21:00 Lorazepam (Ativan) 1 mg Q4H PRN PO ANXIETY Last administered on 08/09/16 21:17 ; Admin Dose 1 MG; Start 08/09/16 at 13:30 MELITON COLBY August 10, 2016 11:02
--- NOTE | 2016-08-10 11:28 | CONS ---
Date/Time of Note Date/Time of Note DATE: 08/10/16 TIME: 11:26 Assessment/Plan Assessment/Plan Additional Assessment/Plan Atypical chest pain Labile Hypertension Diabetes Dyslipidemia ESRD on HD Systolic dysfunction with Ef 35% by echo Stress test shows no reversible ischemia, EF 45% Started on Imdur Continue Coreg Continue Lisinopril and Norvasc Continue Lipitor Continue Insulin Continue HD as scheduled Continue GI and DVT Prophylaxis Consultation Date/Type/Reason Admit Date/Time August 08, 2016 at 09:01 Initial Consult Date 08/09/16 Type of Consultation: renal Exam/Review of Systems Vital Signs Vitals Vital Signs Date Time Temp Pulse Resp B/P Pulse Ox O2 Delivery O2 Flow Rate FiO2 08/10/16 11:11 97.8 59 18 104/54 96 08/09/16 12:23 Room Air 08/07/16 14:30 3 Intake and Output 08/09/16 08/09/16 08/10/16 15:00 23:00 07:00 Intake Total 500 ml 550 ml 700 ml Output Total 2500 ml Balance -2000 ml 550 ml 700 ml Exam Constitutional: alert, oriented Head: atraumatic, normocephalic Respiratory: clear to auscultation Cardiovascular: regular rate and rhythm Gastrointestinal: nl liver, spleen, non-tender, soft Extremities: normal pulses Results Result Diagram: 08/10/16 0550 08/10/16 0530 Results 24 hrs Laboratory Tests Test 08/09/16 13:37 08/09/16 16:05 08/09/16 21:16 08/10/16 05:30 Bedside Glucose 136 110 329 H Sodium Level 140 Potassium Level 3.9 Chloride Level 106 Carbon Dioxide Level 27 Anion Gap 11 Blood Urea Nitrogen 37 #H Creatinine 4.16 H Glucose Level 69 #L Calcium Level 8.8 Test 08/10/16 05:50 08/10/16 08:15 White Blood Count 8.9 Red Blood Count 4.21 Hemoglobin 12.5 Hematocrit 39.6 Mean Corpuscular Volume 94.1 Mean Corpuscular Hemoglobin 29.7 Mean Corpuscular Hemoglobin Concent 31.6 L Red Cell Distribution Width 13.7 Platelet Count 199 Mean Platelet Volume 10.2 Neutrophils % 75.1 Lymphocytes % 14.8 L Monocytes % 6.8 Eosinophils % 2.5 Basophils % 0.6 Nucleated Red Blood Cells % 0.0 Neutrophils # 6.7 Lymphocytes # 1.3 Monocytes # 0.6 Eosinophils # 0.2 Basophils # 0.1 Nucleated Red Blood Cells # 0.0 Bedside Glucose 106 Medications Medications Current Medications Ondansetron HCl (Zofran Inj) 4 mg Q6H PRN IV NAUSEA AND/OR VOMITING Last administered on 08/07/16 12:15; Admin Dose 4 MG; Start 08/06/16 at 04:30 Acetaminophen (Tylenol Tab) 650 mg Q6H PRN PO PAIN LEVEL 1-3 OR FEVER; Start at 04:30 Famotidine (Pepcid) 20 mg DAILY PO Last administered on 08/10/16 08:18; Admin Dose 20 MG; Start 08/06/16 at 09:00 Amlodipine Besylate (Norvasc) 5 mg DAILY PO Last administered on 08/10/16 08: 17; Admin Dose 5 MG; Start 08/06/16 at 09:00 Enalapril Maleate (Vasotec) 10 mg DAILY PO Last administered on 08/10/16 08:17 ; Admin Dose 10 MG; Start 08/06/16 at 09:00 Escitalopram Oxalate (Lexapro) 10 mg DAILY PO Last administered on 08/10/16 08 :17; Admin Dose 10 MG; Start 08/06/16 at 09:00 Furosemide (Lasix) 40 mg DAILY@06 PO Last administered on 08/10/16 05:41; Admin Dose 40 MG; Start 08/06/16 at 06:00 Hydralazine HCl (Apresoline) 100 mg TID PO Last administered on 08/10/16 08:18 ; Admin Dose 100 MG; Start 08/06/16 at 09:00 Isosorbide Dinitrate (Isordil) 20 mg TID PO Last administered on 08/10/16 08: 17; Admin Dose 20 MG; Start 08/06/16 at 09:00 Miscellaneous Information 1 ea NOTE XX ; Start 08/06/16 at 04:30 Glucose (Glutose) 15 gm Q15M PRN PO DECREASED GLUCOSE; Start 08/06/16 at 04:30 Glucose (Glutose) 22.5 gm Q15M PRN PO DECREASED GLUCOSE; Start 08/06/16 at 04: 30 Dextrose (D50w Syringe) 25 ml Q15M PRN IV DECREASED GLUCOSE; Start 08/06/16 at 04:30 Dextrose (D50w Syringe) 50 ml Q15M PRN IV DECREASED GLUCOSE; Start 08/06/16 at 04:30 Glucagon (Glucagen) 1 mg Q15M PRN IM DECREASED GLUCOSE; Start 08/06/16 at 04:30 Glucose (Glutose) 15 gm Q15M PRN BUCCAL DECREASED GLUCOSE; Start 08/06/16 at 04 :30 Hydralazine HCl (Apresoline) 10 mg Q6H PRN IV SBP >160; Start 08/06/16 at 09:30 Morphine Sulfate (morphine) 2 mg Q4H PRN IV pain Last administered on 08:41; Admin Dose 2 MG; Start 08/06/16 at 10:00 Allopurinol (Zyloprim) 100 mg DAILY PO Last administered on 08/10/16 08:18; Admin Dose 100 MG; Start 08/07/16 at 09:00 Insulin Glargine (Lantus) 20 unit QHS SC Last administered on 08/09/16 21:23; Admin Dose 20 UNIT; Start 08/07/16 at 21:00 Atorvastatin Calcium (Lipitor) 40 mg HS PO Last administered on 08/09/16 20:01 ; Admin Dose 40 MG; Start 08/07/16 at 21:00 Carvedilol (Coreg) 6.25 mg BID PO Last administered on 08/10/16 08:18; Admin Dose 6.25 MG; Start 08/07/16 at 21:00 Heparin Sodium (Porcine) (Heparin (5000 Units/0.5 ml)) 5,000 unit BID SC Last administered on 08/10/16 08:25; Admin Dose 5,000 UNIT; Start 08/08/16 at 21:00 Lisinopril (Zestril) 2.5 mg DAILY PO Last administered on 08/10/16 08:18; Admin Dose 2.5 MG; Start 08/08/16 at 15:30 Clonazepam (Klonopin) 0.5 mg Q12 PO Last administered on 08/10/16 08:17; Admin Dose 0.5 MG; Start 08/09/16 at 21:00 Lorazepam (Ativan) 1 mg Q4H PRN PO ANXIETY Last administered on 08/09/16 21:17 ; Admin Dose 1 MG; Start 08/09/16 at 13:30 AYLEEN IRWIN M.D. August 10, 2016 11:28
[2016-08-10] MEDS: ISOSORBIDE MONONITRATE(SR)30 MG TAB PO SCH (11:52)
--- NOTE | 2016-08-10 13:35 | CONS ---
Date/Time of Note Date/Time of Note DATE: 08/10/16 TIME: 13:32 Assessment/Plan Assessment/Plan Chief Complaint/Hosp Course Shaking of whole-body Problems: Additional Assessment/Plan Patient is a 45-year-old female with a history of end-stage renal disease on hemodialysis, hypothyroidism, diabetes mellitus, cardiomyopathy and hypertension who initially presented from her dialysis clinic with a nonfunctioning dialysis catheter and has complaints of substernal chest pain, somewhat poorly described. Patient subsequently has undergone placement of a right-sided hemodialysis catheter. The patient underwent a 2D echo which showed significantly depressed EF approximately 35% with diastolic dysfunction, trace mitral and tricuspid regurgitation as well as trace pulmonic regurgitation. She started with shaking of her arms or legs after admission to the hospital. There is no history of seizure activity or loss of consciousness. No history of tongue bite or incontinence. CT scan of the brain showed mild diffuse cerebral volume loss, otherwise unremarkable. Her symptoms does not appear to be seizure activity instead myoclonus is more likely. MRI of the brain was ordered, which is still pending Plan 1 MRI of the brain 2 Continue clonazepam 0.5 mg p.o. twice daily 3 Dr. Barajas will follow in AM Consultation Date/Type/Reason Admit Date/Time August 08, 2016 at 09:01 Initial Consult Date 08/09/16 Type of Consultation: renal 24 HR Interval Summary Free Text/Dictation She has been doing well. She was started on clonazepam yesterday and has no tremors now. EKG showed mild generalized background slowing consistent with mild encephalopathy without epileptiform activity. Constitutional: improved Exam/Review of Systems Vital Signs Vitals Vital Signs Date Time Temp Pulse Resp B/P Pulse Ox O2 Delivery O2 Flow Rate FiO2 08/10/16 12:47 71 08/10/16 11:11 97.8 18 104/54 96 08/09/16 12:23 Room Air 08/07/16 14:30 3 Intake and Output 08/09/16 08/09/16 08/10/16 15:00 23:00 07:00 Intake Total 500 ml 550 ml 700 ml Output Total 2500 ml Balance -2000 ml 550 ml 700 ml Exam Constitutional: alert, oriented, well developed Psych: nl mood/affect, no complaints Head: atraumatic, normocephalic Eyes: EOMI, PERRL, nl conjunctiva, nl lids, nl sclera ENMT: nl external ears & nose, nl lips & teeth, nl nasal mucosa & septum Neck: non-tender, supple Respiratory: clear to auscultation, normal air movement Cardiovascular: nl pulses, regular rate and rhythm Gastrointestinal: nl liver, spleen, non-tender, soft Extremities: normal pulses Neurological: [employer] II-XII intact, nl speech, nl strength Skin: nl turgor, rash or lesions Lymph: nl lymph nodes Results Result Diagram: 08/10/16 0550 08/10/16 0530 Results 24 hrs Laboratory Tests Test 08/09/16 13:37 08/09/16 16:05 08/09/16 21:16 08/10/16 05:30 Bedside Glucose 136 110 329 H Sodium Level 140 Potassium Level 3.9 Chloride Level 106 Carbon Dioxide Level 27 Anion Gap 11 Blood Urea Nitrogen 37 #H Creatinine 4.16 H Glucose Level 69 #L Calcium Level 8.8 Test 08/10/16 05:50 08/10/16 08:15 08/10/16 11:53 White Blood Count 8.9 Red Blood Count 4.21 Hemoglobin 12.5 Hematocrit 39.6 Mean Corpuscular Volume 94.1 Mean Corpuscular Hemoglobin 29.7 Mean Corpuscular Hemoglobin Concent 31.6 L Red Cell Distribution Width 13.7 Platelet Count 199 Mean Platelet Volume 10.2 Neutrophils % 75.1 Lymphocytes % 14.8 L Monocytes % 6.8 Eosinophils % 2.5 Basophils % 0.6 Nucleated Red Blood Cells % 0.0 Neutrophils # 6.7 Lymphocytes # 1.3 Monocytes # 0.6 Eosinophils # 0.2 Basophils # 0.1 Nucleated Red Blood Cells # 0.0 Bedside Glucose 106 94 Medications Medications Current Medications Ondansetron HCl (Zofran Inj) 4 mg Q6H PRN IV NAUSEA AND/OR VOMITING Last administered on 08/07/16 12:15; Admin Dose 4 MG; Start 08/06/16 at 04:30 Acetaminophen (Tylenol Tab) 650 mg Q6H PRN PO PAIN LEVEL 1-3 OR FEVER; Start at 04:30 Famotidine (Pepcid) 20 mg DAILY PO Last administered on 08/10/16 08:18; Admin Dose 20 MG; Start 08/06/16 at 09:00 Amlodipine Besylate (Norvasc) 5 mg DAILY PO Last administered on 08/10/16 08: 17; Admin Dose 5 MG; Start 08/06/16 at 09:00 Enalapril Maleate (Vasotec) 10 mg DAILY PO Last administered on 08/10/16 08:17 ; Admin Dose 10 MG; Start 08/06/16 at 09:00 Escitalopram Oxalate (Lexapro) 10 mg DAILY PO Last administered on 08/10/16 08 :17; Admin Dose 10 MG; Start 08/06/16 at 09:00 Furosemide (Lasix) 40 mg DAILY@06 PO Last administered on 08/10/16 05:41; Admin Dose 40 MG; Start 08/06/16 at 06:00 Hydralazine HCl (Apresoline) 100 mg TID PO Last administered on 08/10/16 08:18 ; Admin Dose 100 MG; Start 08/06/16 at 09:00 Miscellaneous Information 1 ea NOTE XX ; Start 08/06/16 at 04:30 Glucose (Glutose) 15 gm Q15M PRN PO DECREASED GLUCOSE; Start 08/06/16 at 04:30 Glucose (Glutose) 22.5 gm Q15M PRN PO DECREASED GLUCOSE; Start 08/06/16 at 04: 30 Dextrose (D50w Syringe) 25 ml Q15M PRN IV DECREASED GLUCOSE; Start 08/06/16 at 04:30 Dextrose (D50w Syringe) 50 ml Q15M PRN IV DECREASED GLUCOSE; Start 08/06/16 at 04:30 Glucagon (Glucagen) 1 mg Q15M PRN IM DECREASED GLUCOSE; Start 08/06/16 at 04:30 Glucose (Glutose) 15 gm Q15M PRN BUCCAL DECREASED GLUCOSE; Start 08/06/16 at 04 :30 Hydralazine HCl (Apresoline) 10 mg Q6H PRN IV SBP >160; Start 08/06/16 at 09:30 Morphine Sulfate (morphine) 2 mg Q4H PRN IV pain Last administered on 08:41; Admin Dose 2 MG; Start 08/06/16 at 10:00 Allopurinol (Zyloprim) 100 mg DAILY PO Last administered on 08/10/16 08:18; Admin Dose 100 MG; Start 08/07/16 at 09:00 Insulin Glargine (Lantus) 20 unit QHS SC Last administered on 08/09/16 21:23; Admin Dose 20 UNIT; Start 08/07/16 at 21:00 Atorvastatin Calcium (Lipitor) 40 mg HS PO Last administered on 08/09/16 20:01 ; Admin Dose 40 MG; Start 08/07/16 at 21:00 Carvedilol (Coreg) 6.25 mg BID PO Last administered on 08/10/16 08:18; Admin Dose 6.25 MG; Start 08/07/16 at 21:00 Heparin Sodium (Porcine) (Heparin (5000 Units/0.5 ml)) 5,000 unit BID SC Last administered on 08/10/16 08:25; Admin Dose 5,000 UNIT; Start 08/08/16 at 21:00 Lisinopril (Zestril) 2.5 mg DAILY PO Last administered on 08/10/16 08:18; Admin Dose 2.5 MG; Start 08/08/16 at 15:30 Clonazepam (Klonopin) 0.5 mg Q12 PO Last administered on 08/10/16 08:17; Admin Dose 0.5 MG; Start 08/09/16 at 21:00 Lorazepam (Ativan) 1 mg Q4H PRN PO ANXIETY Last administered on 08/09/16 21:17 ; Admin Dose 1 MG; Start 08/09/16 at 13:30 Isosorbide Mononitrate (Imdur) 30 mg DAILY PO Last administered on 08/10/16 11 :52; Admin Dose 30 MG; Start 08/10/16 at 11:30 KWAME LICONA MD August 10, 2016 13:35
--- NOTE | 2016-08-10 16:13 | CARRPT ---
DATE OF PROCEDURE: 08/09/2016 PROCEDURE PERFORMED: Lexiscan. INDICATIONS: Chest pain. CLINICAL: The patient is a 45-year-old female with chest pain with a baseline heart rate of 81 beat s per minute, baseline blood pressure 166/64 mmHg. Peak heart rate 85 beats per minute, peak blood pressure 166/64 mmHg. The patient was asymptomatic during the duration of the stress test. ELECTROCARDIOGRAM: EKG at baseline shows normal sinus rhythm with a ventricular rate of 67 beats pe r minute with normal ME, normal QRS, and normal QT intervals with T wave inversion in the inferior l lula and lead V5 and V6 with prolonged QT interval. With a peak heart rate of 88 beats per minute. There is normal ME and normal QRS and prolonged QT intervals with persistence of T wave inversion i n the inferior and lateral leads. Clinically nonischemic EKG, nondiagnostic. Cardiolite stress images to follow this dictation. Dictated By: AYLEEN IRWIN MD SR/NTS Conf#: [id number] DID#: [id number] CC: NORMAN BOWDEN MD;*EndCC*
--- NOTE | 2016-08-10 17:16 | SP ---
DATE OF PROCEDURE: 08/08/2016 HISTORY: This is a 45-year-old woman with history of cardiomyopathy, end-stage renal disease, was found to have been confused. EEG is to rule out seizure activity. CURRENT MEDICATIONS: None. PROCEDURE: Utilizing a 16-channel EEG machine, cap scalp electrodes were applied in accordance with International 10-20 system. [id number] and scalp -to-ear montages were utilized and electrical impedances were measured and recorded. DESCRIPTION: During the resting state, posterior dominant rhythm of about 7 to 8 Hz were seen bihemispherically. Photic stimulation had a good response. Hyperventilation could not be performed. There was no focal lateralizing or epileptiform discharging identified. INTERPRETATION: This is mildly abnormal EEG due to generalized bihemispheric background slowing without any epileptiform activity, consistent with mild encephalopathy. Please correlate these findings with the patient's clinical picture. Dictated By: KWAME PALOMARES/SABRINA Conf#: [id number] DID#: [id number]
--- NOTE | 2016-08-10 17:29 | CONS ---
Date/Time of Note Date/Time of Note DATE: 08/10/16 TIME: 17:29 Assessment/Plan Assessment/Plan Chief Complaint/Hosp Course IMPRESSION: 1. The patient has malfunctioning port of the dialysis catheter, broken per dialysis nurse. 2. End-stage renal disease. 3. Hypertension. 4. Diabetes mellitus. 5. Hypothyroidism. 6. Cardiomyopathy. 7. Decreased ejection fraction. 8. Systolic heart failure. 9. History of anasarca. 10. History of thoracentesis. 11. Underlying diabetic nephropathy. plan placment of cath and hd Problems: Consultation Date/Type/Reason Admit Date/Time August 08, 2016 at 09:01 Type of Consultation: renal 24 HR Interval Summary Constitutional: no complaints Exam/Review of Systems Vital Signs Vitals Vital Signs Date Time Temp Pulse Resp B/P Pulse Ox O2 Delivery O2 Flow Rate FiO2 08/10/16 16:16 73 08/10/16 15:44 98.5 18 108/51 98 08/09/16 12:23 Room Air 08/07/16 14:30 3 Intake and Output 08/09/16 08/09/16 08/10/16 15:00 23:00 07:00 Intake Total 500 ml 550 ml 700 ml Output Total 2500 ml Balance -2000 ml 550 ml 700 ml Exam Neck: supple Respiratory: clear to auscultation Cardiovascular: regular rate and rhythm Gastrointestinal: soft Results Result Diagram: 08/10/16 0550 08/10/16 0530 Results 24 hrs Laboratory Tests Test 08/09/16 21:16 08/10/16 05:30 08/10/16 05:50 08/10/16 08:15 Bedside Glucose 329 H 106 Sodium Level 140 Potassium Level 3.9 Chloride Level 106 Carbon Dioxide Level 27 Anion Gap 11 Blood Urea Nitrogen 37 #H Creatinine 4.16 H Glucose Level 69 #L Calcium Level 8.8 White Blood Count 8.9 Red Blood Count 4.21 Hemoglobin 12.5 Hematocrit 39.6 Mean Corpuscular Volume 94.1 Mean Corpuscular Hemoglobin 29.7 Mean Corpuscular Hemoglobin Concent 31.6 L Red Cell Distribution Width 13.7 Platelet Count 199 Mean Platelet Volume 10.2 Neutrophils % 75.1 Lymphocytes % 14.8 L Monocytes % 6.8 Eosinophils % 2.5 Basophils % 0.6 Nucleated Red Blood Cells % 0.0 Neutrophils # 6.7 Lymphocytes # 1.3 Monocytes # 0.6 Eosinophils # 0.2 Basophils # 0.1 Nucleated Red Blood Cells # 0.0 Test 08/10/16 11:53 Bedside Glucose 94 Medications Medications Current Medications Ondansetron HCl (Zofran Inj) 4 mg Q6H PRN IV NAUSEA AND/OR VOMITING Last administered on 08/07/16 12:15; Admin Dose 4 MG; Start 08/06/16 at 04:30 Acetaminophen (Tylenol Tab) 650 mg Q6H PRN PO PAIN LEVEL 1-3 OR FEVER; Start at 04:30 Famotidine (Pepcid) 20 mg DAILY PO Last administered on 08/10/16 08:18; Admin Dose 20 MG; Start 08/06/16 at 09:00 Amlodipine Besylate (Norvasc) 5 mg DAILY PO Last administered on 08/10/16 08: 17; Admin Dose 5 MG; Start 08/06/16 at 09:00 Enalapril Maleate (Vasotec) 10 mg DAILY PO Last administered on 08/10/16 08:17 ; Admin Dose 10 MG; Start 08/06/16 at 09:00 Escitalopram Oxalate (Lexapro) 10 mg DAILY PO Last administered on 08/10/16 08 :17; Admin Dose 10 MG; Start 08/06/16 at 09:00 Furosemide (Lasix) 40 mg DAILY@06 PO Last administered on 08/10/16 05:41; Admin Dose 40 MG; Start 08/06/16 at 06:00 Hydralazine HCl (Apresoline) 100 mg TID PO Last administered on 08/10/16 08:18 ; Admin Dose 100 MG; Start 08/06/16 at 09:00 Miscellaneous Information 1 ea NOTE XX ; Start 08/06/16 at 04:30 Glucose (Glutose) 15 gm Q15M PRN PO DECREASED GLUCOSE; Start 08/06/16 at 04:30 Glucose (Glutose) 22.5 gm Q15M PRN PO DECREASED GLUCOSE; Start 08/06/16 at 04: 30 Dextrose (D50w Syringe) 25 ml Q15M PRN IV DECREASED GLUCOSE; Start 08/06/16 at 04:30 Dextrose (D50w Syringe) 50 ml Q15M PRN IV DECREASED GLUCOSE; Start 08/06/16 at 04:30 Glucagon (Glucagen) 1 mg Q15M PRN IM DECREASED GLUCOSE; Start 08/06/16 at 04:30 Glucose (Glutose) 15 gm Q15M PRN BUCCAL DECREASED GLUCOSE; Start 08/06/16 at 04 :30 Hydralazine HCl (Apresoline) 10 mg Q6H PRN IV SBP >160; Start 08/06/16 at 09:30 Morphine Sulfate (morphine) 2 mg Q4H PRN IV pain Last administered on 08:41; Admin Dose 2 MG; Start 08/06/16 at 10:00 Allopurinol (Zyloprim) 100 mg DAILY PO Last administered on 08/10/16 08:18; Admin Dose 100 MG; Start 08/07/16 at 09:00 Insulin Glargine (Lantus) 20 unit QHS SC Last administered on 08/09/16 21:23; Admin Dose 20 UNIT; Start 08/07/16 at 21:00 Atorvastatin Calcium (Lipitor) 40 mg HS PO Last administered on 08/09/16 20:01 ; Admin Dose 40 MG; Start 08/07/16 at 21:00 Carvedilol (Coreg) 6.25 mg BID PO Last administered on 08/10/16 08:18; Admin Dose 6.25 MG; Start 08/07/16 at 21:00 Heparin Sodium (Porcine) (Heparin (5000 Units/0.5 ml)) 5,000 unit BID SC Last administered on 08/10/16 08:25; Admin Dose 5,000 UNIT; Start 08/08/16 at 21:00 Lisinopril (Zestril) 2.5 mg DAILY PO Last administered on 08/10/16 08:18; Admin Dose 2.5 MG; Start 08/08/16 at 15:30 Clonazepam (Klonopin) 0.5 mg Q12 PO Last administered on 08/10/16 08:17; Admin Dose 0.5 MG; Start 08/09/16 at 21:00 Lorazepam (Ativan) 1 mg Q4H PRN PO ANXIETY Last administered on 08/09/16 21:17 ; Admin Dose 1 MG; Start 08/09/16 at 13:30 Isosorbide Mononitrate (Imdur) 30 mg DAILY PO Last administered on 08/10/16 11 :52; Admin Dose 30 MG; Start 08/10/16 at 11:30 JUAN C SHEPHERD MD August 10, 2016 17:29
[2016-08-10] MEDS: ATORVASTATIN 40 MG TAB PO SCH (20:41)
[2016-08-10] MEDS: LORAZEPAM 1 MG TAB PO PRN (20:50)
[2016-08-10] MEDS: INSULIN GLARGINE [LANtus] 3 ML PEN SC SCH (20:58)
[2016-08-11] VITALS (20 sets, daily range): BP systolic 100–133; BP diastolic 51–67; PULSE 67–81; RESP 15–20
[2016-08-11] MEDS: FUROSEMIDE 40 MG TAB PO SCH (05:51)
[2016-08-11] MEDS: LEVOTHYROXINE 25 MCG TAB PO SCH (05:51)
[2016-08-11 06:23] LABS: ADD SCAN DIFF NO
[2016-08-11 06:27] LABS: BASOPHIL # 0.1 10^3/ul (0.0-0.1); BASOPHILS % 0.6 % (0.0-2.0); EOSINOPHILS # 0.4 10^3/ul (0.0-0.5); EOSINOPHILS % 3.9 % (0.0-7.0); HEMATOCRIT 38.9 % (37.0-47.0); HEMOGLOBIN 12.3 g/dl (12.0-16.0); LYMPHOCYTES # 2.1 10^3/ul (0.8-2.9); LYMPHOCYTES % 23.2 % (15.0-51.0); MEAN CORPUSCULAR HEMOGLOBIN 29.7 pg (29.0-33.0); MEAN CORPUSCULAR HGB CONC 31.6 g/dl (32.0-37.0); MEAN PLATELET VOLUME 10.7 fl (7.4-10.4); MONOCYTE # 0.7 10^3/ul (0.3-0.9); MONOCYTES % 7.7 % (0.0-11.0); NEUTROPHIL # 5.7 10^3/ul (1.6-7.5); NEUTROPHILS % 64.3 % (39.0-77.0); PLATELET COUNT 190 10^3/UL (140-415); RED BLOOD COUNT 4.14 10^6/ul (4.20-5.40); RED CELL DISTRIBUTION WIDTH 13.4 % (11.5-14.5); WHITE BLOOD COUNT 8.9 10^3/ul (4.8-10.8)
[2016-08-11 07:11] LABS: POTASSIUM 3.7 mmol/L (3.5-5.1)
[2016-08-11 07:14] LABS: CREATININE 5.42 mg/dl (0.44-1.00)
[2016-08-11 07:15] LABS: CALCIUM 8.2 mg/dl (8.4-10.2)
[2016-08-11] MEDS: INSULIN ASPART [NOVOLOG] 3 ML PEN SC SCH ×6 (07:49→17:25)
[2016-08-11] MEDS: HEPARIN 5,000 UNIT/0.5 ML VIAL SC SCH ×2 (08:20→21:16)
[2016-08-11] MEDS: ESCITALOPRAM 10 MG TAB PO SCH (08:22)
[2016-08-11] MEDS: ALLOPURINOL 100 MG TAB PO SCH (08:23)
[2016-08-11] MEDS: clonAZEPAM 0.5 MG TAB PO SCH ×2 (08:23→21:17)
[2016-08-11] MEDS: FAMOTIDINE 20 MG TAB PO SCH (08:23)
[2016-08-11] MEDS: ENALAPRIL 10 MG TAB PO SCH (08:23)
[2016-08-11] MEDS: ISOSORBIDE MONONITRATE(SR)30 MG TAB PO SCH (08:23)
[2016-08-11] MEDS: LISINOPRIL 5 MG TAB PO SCH (08:23)
[2016-08-11] MEDS: AMLODIPINE 5 MG TAB PO SCH (08:23)
[2016-08-11] MEDS ORDERED: HEPARIN 1000 UNITS/ML 10 ML INJ CATHETER SCH (10:30)
--- NOTE | 2016-08-11 12:35 | PN ---
Date/Time of Note Date/Time of Note DATE: 08/11/16 TIME: 12:32 Assessment/Plan VTE Prophylaxis VTE Prophylaxis Intervention: heparin Lines/Catheters IV Catheter Type (from Nrs): Saline Lock Urinary Cath still in place: No (dialysis pt.) Assessment/Plan Chief Complaint/Hosp Course Assessment/Plan: 45-year-old female being admitted to telemetry floor for: #1 Nonfunctioning dialysis catheter: Catheter has been replaced, - Further dialysis per nephrology #2 Chest pain: Persistent despite nitrates therapy, improved. Stress test shows no reversible ischemia, however depressed ejection fraction noted with diminished wall motion. - Follow-up cardiology recommendations - monitor #3 end-stage renal disease: On hemodialysis #4 hypothyroidism: Continue levothyroxine #5 diabetes mellitus: Lantus on hold for n.p.o. status, will resume once commenced on a diet #6 Hypertension: Continue current medications #7 Cardiomyopathy with ejection fraction of 35%, and diastolic dysfunction: Patient continues on aspirin, statin, beta-aiden, and KAROL inhibitor therapy #8 Acute encephalopathy: Patient had a transient period of unresponsiveness while alert, with a blank affect, which lasted a few minutes. Possibly sz activity, but pt more alert today CT of the brain negative, - follow-up neurology recommendations and EEG. - MRI ordered by neurology still pending, await findings and neurology recommendations DVT and GI prophylaxis: Heparin, famotidine Problems: Subjective 24 Hr Interval Summary Free Text/Dictation No acute events overnight, pt more alert. Awaiting MRI for today. Exam/Review of Systems Vital Signs Vitals Vital Signs Date Time Temp Pulse Resp B/P Pulse Ox O2 Delivery O2 Flow Rate FiO2 08/11/16 11:58 75 14 08/11/16 11:17 97.8 113/58 99 08/09/16 12:23 Room Air 08/07/16 14:30 3 Intake and Output 08/10/16 08/10/16 08/11/16 15:00 23:00 07:00 Intake Total 600 ml 1350 ml Balance 600 ml 1350 ml Exam Constitutional: alert, oriented Head: atraumatic, normocephalic Neck: non-tender, supple Respiratory: clear to auscultation Cardiovascular: regular rate and rhythm Gastrointestinal: nl liver, spleen, non-tender, soft Extremities: normal pulses Results Result Diagram: 08/11/16 0550 08/11/16 0550 Results 24 hrs Laboratory Tests Test 08/10/16 17:27 08/10/16 20:40 08/11/16 04:54 08/11/16 05:50 Bedside Glucose 198 229 H 151 White Blood Count 8.9 Red Blood Count 4.14 L Hemoglobin 12.3 Hematocrit 38.9 Mean Corpuscular Volume 94.0 Mean Corpuscular Hemoglobin 29.7 Mean Corpuscular Hemoglobin Concent 31.6 L Red Cell Distribution Width 13.4 Platelet Count 190 Mean Platelet Volume 10.7 H Neutrophils % 64.3 Lymphocytes % 23.2 Monocytes % 7.7 Eosinophils % 3.9 Basophils % 0.6 Nucleated Red Blood Cells % 0.0 Neutrophils # 5.7 Lymphocytes # 2.1 Monocytes # 0.7 Eosinophils # 0.4 Basophils # 0.1 Nucleated Red Blood Cells # 0.0 Sodium Level 134 L Potassium Level 3.7 Chloride Level 97 Carbon Dioxide Level 25 Anion Gap 16 Blood Urea Nitrogen 52 H Creatinine 5.42 H Glucose Level 157 Calcium Level 8.2 L Test 08/11/16 07:46 08/11/16 12:00 Bedside Glucose 166 192 Medications Medications Current Medications Ondansetron HCl (Zofran Inj) 4 mg Q6H PRN IV NAUSEA AND/OR VOMITING Last administered on 08/07/16 12:15; Admin Dose 4 MG; Start 08/06/16 at 04:30 Acetaminophen (Tylenol Tab) 650 mg Q6H PRN PO PAIN LEVEL 1-3 OR FEVER; Start at 04:30 Famotidine (Pepcid) 20 mg DAILY PO Last administered on 08/11/16 08:23; Admin Dose 20 MG; Start 08/06/16 at 09:00 Amlodipine Besylate (Norvasc) 5 mg DAILY PO Last administered on 08/11/16 08: 23; Admin Dose 5 MG; Start 08/06/16 at 09:00 Enalapril Maleate (Vasotec) 10 mg DAILY PO Last administered on 08/10/16 08:17 ; Admin Dose 10 MG; Start 08/06/16 at 09:00 Escitalopram Oxalate (Lexapro) 10 mg DAILY PO Last administered on 08/11/16 08 :22; Admin Dose 10 MG; Start 08/06/16 at 09:00 Furosemide (Lasix) 40 mg DAILY@06 PO Last administered on 08/11/16 05:51; Admin Dose 40 MG; Start 08/06/16 at 06:00 Hydralazine HCl (Apresoline) 100 mg TID PO Last administered on 08/10/16 20:42 ; Admin Dose 100 MG; Start 08/06/16 at 09:00 Miscellaneous Information 1 ea NOTE XX ; Start 08/06/16 at 04:30 Glucose (Glutose) 15 gm Q15M PRN PO DECREASED GLUCOSE; Start 08/06/16 at 04:30 Glucose (Glutose) 22.5 gm Q15M PRN PO DECREASED GLUCOSE; Start 08/06/16 at 04: 30 Dextrose (D50w Syringe) 25 ml Q15M PRN IV DECREASED GLUCOSE; Start 08/06/16 at 04:30 Dextrose (D50w Syringe) 50 ml Q15M PRN IV DECREASED GLUCOSE; Start 08/06/16 at 04:30 Glucagon (Glucagen) 1 mg Q15M PRN IM DECREASED GLUCOSE; Start 08/06/16 at 04:30 Glucose (Glutose) 15 gm Q15M PRN BUCCAL DECREASED GLUCOSE; Start 08/06/16 at 04 :30 Hydralazine HCl (Apresoline) 10 mg Q6H PRN IV SBP >160; Start 08/06/16 at 09:30 Morphine Sulfate (morphine) 2 mg Q4H PRN IV pain Last administered on 08:41; Admin Dose 2 MG; Start 08/06/16 at 10:00 Allopurinol (Zyloprim) 100 mg DAILY PO Last administered on 08/11/16 08:23; Admin Dose 100 MG; Start 08/07/16 at 09:00 Insulin Glargine (Lantus) 20 unit QHS SC Last administered on 08/10/16 20:58; Admin Dose 20 UNIT; Start 08/07/16 at 21:00 Atorvastatin Calcium (Lipitor) 40 mg HS PO Last administered on 08/10/16 20:41 ; Admin Dose 40 MG; Start 08/07/16 at 21:00 Carvedilol (Coreg) 6.25 mg BID PO Last administered on 08/11/16 08:22; Admin Dose 6.25 MG; Start 08/07/16 at 21:00 Heparin Sodium (Porcine) (Heparin (5000 Units/0.5 ml)) 5,000 unit BID SC Last administered on 08/11/16 08:20; Admin Dose 5,000 UNIT; Start 08/08/16 at 21:00 Lisinopril (Zestril) 2.5 mg DAILY PO Last administered on 08/10/16 08:18; Admin Dose 2.5 MG; Start 08/08/16 at 15:30 Clonazepam (Klonopin) 0.5 mg Q12 PO Last administered on 08/11/16 08:23; Admin Dose 0.5 MG; Start 08/09/16 at 21:00 Lorazepam (Ativan) 1 mg Q4H PRN PO ANXIETY Last administered on 08/10/16 20:50 ; Admin Dose 1 MG; Start 08/09/16 at 13:30 Isosorbide Mononitrate (Imdur) 30 mg DAILY PO Last administered on 08/10/16 11 :52; Admin Dose 30 MG; Start 08/10/16 at 11:30 EVELINE EID August 11, 2016 12:35
--- NOTE | 2016-08-11 16:57 | CONS ---
Date/Time of Note Date/Time of Note DATE: 08/11/16 TIME: 16:57 Assessment/Plan Assessment/Plan Chief Complaint/Hosp Course IMPRESSION: 1. The patient has malfunctioning port of the dialysis catheter, broken per dialysis nurse. 2. End-stage renal disease. 3. Hypertension. 4. Diabetes mellitus. 5. Hypothyroidism. 6. Cardiomyopathy. 7. Decreased ejection fraction. 8. Systolic heart failure. 9. History of anasarca. 10. History of thoracentesis. 11. Underlying diabetic nephropathy. plan hd renal stable ok to dc per renal Problems: Consultation Date/Type/Reason Admit Date/Time August 08, 2016 at 09:01 Type of Consultation: renal 24 HR Interval Summary Constitutional: no complaints Exam/Review of Systems Vital Signs Vitals Vital Signs Date Time Temp Pulse Resp B/P Pulse Ox O2 Delivery O2 Flow Rate FiO2 08/11/16 16:31 77 08/11/16 15:08 98.2 16 133/64 98 08/09/16 12:23 Room Air 08/07/16 14:30 3 Intake and Output 08/10/16 08/10/16 08/11/16 15:00 23:00 07:00 Intake Total 600 ml 1350 ml Balance 600 ml 1350 ml Exam Respiratory: clear to auscultation Cardiovascular: regular rate and rhythm Gastrointestinal: soft Musculoskeletal: nl extremities to inspection Results Result Diagram: 08/11/16 0550 08/11/16 0550 Results 24 hrs Laboratory Tests Test 08/10/16 17:27 08/10/16 20:40 08/11/16 04:54 08/11/16 05:50 Bedside Glucose 198 229 H 151 White Blood Count 8.9 Red Blood Count 4.14 L Hemoglobin 12.3 Hematocrit 38.9 Mean Corpuscular Volume 94.0 Mean Corpuscular Hemoglobin 29.7 Mean Corpuscular Hemoglobin Concent 31.6 L Red Cell Distribution Width 13.4 Platelet Count 190 Mean Platelet Volume 10.7 H Neutrophils % 64.3 Lymphocytes % 23.2 Monocytes % 7.7 Eosinophils % 3.9 Basophils % 0.6 Nucleated Red Blood Cells % 0.0 Neutrophils # 5.7 Lymphocytes # 2.1 Monocytes # 0.7 Eosinophils # 0.4 Basophils # 0.1 Nucleated Red Blood Cells # 0.0 Sodium Level 134 L Potassium Level 3.7 Chloride Level 97 Carbon Dioxide Level 25 Anion Gap 16 Blood Urea Nitrogen 52 H Creatinine 5.42 H Glucose Level 157 Calcium Level 8.2 L Test 08/11/16 07:46 08/11/16 12:00 Bedside Glucose 166 192 Medications Medications Current Medications Ondansetron HCl (Zofran Inj) 4 mg Q6H PRN IV NAUSEA AND/OR VOMITING Last administered on 08/07/16 12:15; Admin Dose 4 MG; Start 08/06/16 at 04:30 Acetaminophen (Tylenol Tab) 650 mg Q6H PRN PO PAIN LEVEL 1-3 OR FEVER; Start at 04:30 Famotidine (Pepcid) 20 mg DAILY PO Last administered on 08/11/16 08:23; Admin Dose 20 MG; Start 08/06/16 at 09:00 Amlodipine Besylate (Norvasc) 5 mg DAILY PO Last administered on 08/11/16 08: 23; Admin Dose 5 MG; Start 08/06/16 at 09:00 Enalapril Maleate (Vasotec) 10 mg DAILY PO Last administered on 08/10/16 08:17 ; Admin Dose 10 MG; Start 08/06/16 at 09:00 Escitalopram Oxalate (Lexapro) 10 mg DAILY PO Last administered on 08/11/16 08 :22; Admin Dose 10 MG; Start 08/06/16 at 09:00 Furosemide (Lasix) 40 mg DAILY@06 PO Last administered on 08/11/16 05:51; Admin Dose 40 MG; Start 08/06/16 at 06:00 Hydralazine HCl (Apresoline) 100 mg TID PO Last administered on 08/10/16 20:42 ; Admin Dose 100 MG; Start 08/06/16 at 09:00 Miscellaneous Information 1 ea NOTE XX ; Start 08/06/16 at 04:30 Glucose (Glutose) 15 gm Q15M PRN PO DECREASED GLUCOSE; Start 08/06/16 at 04:30 Glucose (Glutose) 22.5 gm Q15M PRN PO DECREASED GLUCOSE; Start 08/06/16 at 04: 30 Dextrose (D50w Syringe) 25 ml Q15M PRN IV DECREASED GLUCOSE; Start 08/06/16 at 04:30 Dextrose (D50w Syringe) 50 ml Q15M PRN IV DECREASED GLUCOSE; Start 08/06/16 at 04:30 Glucagon (Glucagen) 1 mg Q15M PRN IM DECREASED GLUCOSE; Start 08/06/16 at 04:30 Glucose (Glutose) 15 gm Q15M PRN BUCCAL DECREASED GLUCOSE; Start 08/06/16 at 04 :30 Hydralazine HCl (Apresoline) 10 mg Q6H PRN IV SBP >160; Start 08/06/16 at 09:30 Morphine Sulfate (morphine) 2 mg Q4H PRN IV pain Last administered on 08:41; Admin Dose 2 MG; Start 08/06/16 at 10:00 Allopurinol (Zyloprim) 100 mg DAILY PO Last administered on 08/11/16 08:23; Admin Dose 100 MG; Start 08/07/16 at 09:00 Insulin Glargine (Lantus) 20 unit QHS SC Last administered on 08/10/16 20:58; Admin Dose 20 UNIT; Start 08/07/16 at 21:00 Atorvastatin Calcium (Lipitor) 40 mg HS PO Last administered on 08/10/16 20:41 ; Admin Dose 40 MG; Start 08/07/16 at 21:00 Carvedilol (Coreg) 6.25 mg BID PO Last administered on 08/11/16 08:22; Admin Dose 6.25 MG; Start 08/07/16 at 21:00 Heparin Sodium (Porcine) (Heparin (5000 Units/0.5 ml)) 5,000 unit BID SC Last administered on 08/11/16 08:20; Admin Dose 5,000 UNIT; Start 08/08/16 at 21:00 Lisinopril (Zestril) 2.5 mg DAILY PO Last administered on 08/10/16 08:18; Admin Dose 2.5 MG; Start 08/08/16 at 15:30 Clonazepam (Klonopin) 0.5 mg Q12 PO Last administered on 08/11/16 08:23; Admin Dose 0.5 MG; Start 08/09/16 at 21:00 Lorazepam (Ativan) 1 mg Q4H PRN PO ANXIETY Last administered on 08/10/16 20:50 ; Admin Dose 1 MG; Start 08/09/16 at 13:30 Isosorbide Mononitrate (Imdur) 30 mg DAILY PO Last administered on 08/10/16t 11 :52; Admin Dose 30 MG; Start 08/10/16 at 11:30 JUAN C SHEPHERD MD August 11, 2016 16:57
--- NOTE | 2016-08-11 17:06 | RADRPT ---
PROCEDURE: MRI Brain without contrast. CLINICAL INDICATION: Tremors TECHNIQUE: Multiplanar MRI of the brain without contrast was performed on a 3.0 T scanner with the following sequences obtained: T1-weighted, T2-weighted/FLAIR, diffusion weighted (with ADC map), GR E. COMPARISON: CT brain 08/08/2016 FINDINGS: No acute/recent ischemic infarction or intracranial hemorrhage / blood degradation products are iden tified. No extra-axial fluid collection is seen. There is no mass effect. No midline shift is identified. The ventricles and sulci are mildly enlarged, compatible with generalized volume loss. Minimal areas of increased T2 / FLAIR signal intensity are present in the periventricular and deep w mare matter, nonspecific but likely related to chronic small vessel ischemic changes. There is also patchy increased T2-weighted FLAIR signal intensity in the kaela extending bilaterally without assoc iated restricted diffusion or mass effect. Findings are nonspecific. Flow voids are identified in the proximal intracranial arteries and dural sinuses suggesting patency . The mastoid air cells and paranasal sinuses are grossly clear. IMPRESSION: 1. No acute intracranial pathology identified. 2. Mild generalized volume loss, with minimal chronic small vessel ischemic changes. 3. Patchy signal abnormality in the kaela, nonspecific. Considerations include sequela of ischemic changes, possibly metabolic process such as osmotic demyelination syndrome. RPTAT: VV .Naseem Gar MD, Date Time Electronically viewed and signed by .Naseem Gar MD, MD on 08/11/2016 17:06 .O/
--- NOTE | 2016-08-11 19:39 | CONS ---
Date/Time of Note Date/Time of Note DATE: 08/11/16 TIME: 19:34 Assessment/Plan Assessment/Plan Chief Complaint/Hosp Course IMPRESSION: 1. Chest pain, assess for acute coronary syndrome with negative troponins x3. NO ischemia by lexiscan this admit 2. Abnormal electrocardiogram, assess for acute coronary syndrome. 3. Cardiomyopathy with decreased left ventricular ejection fraction.-no ischemia by lexiscan 08/10 with EF45%/35-40 by echo 4. Hypertension. 5. End-stage renal disease on hemodialysis. 6. Dyslipidemia. 7. Diabetes mellitus. Recc: -Tele -serial ecg's -Continue vasotec/imdur/norvasc/coreg -D/C second acei zestril -Continue statin -HD for volume removal -ok for d/c from cardiac standpoint with ouitpatient f/u and ongoing treatment of cardiomyopathy Problems: Consultation Date/Type/Reason Admit Date/Time August 08, 2016 at 09:01 Initial Consult Date 08/09/16 Type of Consultation: Cardiology Reason for Consultation cardiomyopathy Referring Provider: MELITON COLBY Exam/Review of Systems Vital Signs Vitals Vital Signs Date Time Temp Pulse Resp B/P Pulse Ox O2 Delivery O2 Flow Rate FiO2 08/11/16 19:01 98.5 77 15 120/58 98 08/09/16 12:23 Room Air 08/07/16 14:30 3 Intake and Output 08/10/16 08/10/16 08/11/16 15:00 23:00 07:00 Intake Total 600 ml 1350 ml Balance 600 ml 1350 ml Exam Review of Systems: CONSTITUTIONAL: No fevers, chills. PULMONARY: No sob CARDIOVASCULAR: No chest pain/palpitations GASTROINTESTINAL: No nausea/vomiting. GENITOURINARY: No hematuria/dysuria. MUSCULOSKELETAL: No myagias/arthalgias. PSYCHIATRIC: The patient denies depression. NEUROLOGIC: lethargic Constitutional: alert Psych: no complaints Head: normocephalic ENMT: mucosa pink and moist Neck: jvd (9 cm water), supple Respiratory: diminished breath sounds (at bases/B) Cardiovascular: regular rate and rhythm Gastrointestinal: non-tender, soft Musculoskeletal: muscle tone (normal) Extremities: edema Neurological: other (No focal deficits) Results Result Diagram: 08/11/16 0550 08/11/16 0550 Results 24 hrs Laboratory Tests Test 08/10/16 20:40 08/11/16 04:54 08/11/16 05:50 08/11/16 07:46 Bedside Glucose 229 H 151 166 White Blood Count 8.9 Red Blood Count 4.14 L Hemoglobin 12.3 Hematocrit 38.9 Mean Corpuscular Volume 94.0 Mean Corpuscular Hemoglobin 29.7 Mean Corpuscular Hemoglobin Concent 31.6 L Red Cell Distribution Width 13.4 Platelet Count 190 Mean Platelet Volume 10.7 H Neutrophils % 64.3 Lymphocytes % 23.2 Monocytes % 7.7 Eosinophils % 3.9 Basophils % 0.6 Nucleated Red Blood Cells % 0.0 Neutrophils # 5.7 Lymphocytes # 2.1 Monocytes # 0.7 Eosinophils # 0.4 Basophils # 0.1 Nucleated Red Blood Cells # 0.0 Sodium Level 134 L Potassium Level 3.7 Chloride Level 97 Carbon Dioxide Level 25 Anion Gap 16 Blood Urea Nitrogen 52 H Creatinine 5.42 H Glucose Level 157 Calcium Level 8.2 L Test 08/11/16 12:00 08/11/16 17:20 Bedside Glucose 192 164 Medications Medications Current Medications Ondansetron HCl (Zofran Inj) 4 mg Q6H PRN IV NAUSEA AND/OR VOMITING Last administered on 08/07/16 12:15; Admin Dose 4 MG; Start 08/06/16 at 04:30 Acetaminophen (Tylenol Tab) 650 mg Q6H PRN PO PAIN LEVEL 1-3 OR FEVER; Start at 04:30 Famotidine (Pepcid) 20 mg DAILY PO Last administered on 08/11/16 08:23; Admin Dose 20 MG; Start 08/06/16 at 09:00 Amlodipine Besylate (Norvasc) 5 mg DAILY PO Last administered on 08/11/16 08: 23; Admin Dose 5 MG; Start 08/06/16 at 09:00 Enalapril Maleate (Vasotec) 10 mg DAILY PO Last administered on 08/10/16 08:17 ; Admin Dose 10 MG; Start 08/06/16 at 09:00 Escitalopram Oxalate (Lexapro) 10 mg DAILY PO Last administered on 08/11/16 08 :22; Admin Dose 10 MG; Start 08/06/16 at 09:00 Furosemide (Lasix) 40 mg DAILY@06 PO Last administered on 08/11/16 05:51; Admin Dose 40 MG; Start 08/06/16 at 06:00 Hydralazine HCl (Apresoline) 100 mg TID PO Last administered on 08/10/16 20:42 ; Admin Dose 100 MG; Start 08/06/16 at 09:00 Miscellaneous Information 1 ea NOTE XX ; Start 08/06/16 at 04:30 Glucose (Glutose) 15 gm Q15M PRN PO DECREASED GLUCOSE; Start 08/06/16 at 04:30 Glucose (Glutose) 22.5 gm Q15M PRN PO DECREASED GLUCOSE; Start 08/06/16 at 04: 30 Dextrose (D50w Syringe) 25 ml Q15M PRN IV DECREASED GLUCOSE; Start 08/06/16 at 04:30 Dextrose (D50w Syringe) 50 ml Q15M PRN IV DECREASED GLUCOSE; Start 08/06/16 at 04:30 Glucagon (Glucagen) 1 mg Q15M PRN IM DECREASED GLUCOSE; Start 08/06/16 at 04:30 Glucose (Glutose) 15 gm Q15M PRN BUCCAL DECREASED GLUCOSE; Start 08/06/16 at 04 :30 Hydralazine HCl (Apresoline) 10 mg Q6H PRN IV SBP >160; Start 08/06/16 at 09:30 Morphine Sulfate (morphine) 2 mg Q4H PRN IV pain Last administered on 08:41; Admin Dose 2 MG; Start 08/06/16 at 10:00 Allopurinol (Zyloprim) 100 mg DAILY PO Last administered on 08/11/16 08:23; Admin Dose 100 MG; Start 08/07/16 at 09:00 Insulin Glargine (Lantus) 20 unit QHS SC Last administered on 08/10/16 20:58; Admin Dose 20 UNIT; Start 08/07/16 at 21:00 Atorvastatin Calcium (Lipitor) 40 mg HS PO Last administered on 08/10/16 20:41 ; Admin Dose 40 MG; Start 08/07/16 at 21:00 Carvedilol (Coreg) 6.25 mg BID PO Last administered on 08/11/16 08:22; Admin Dose 6.25 MG; Start 08/07/16 at 21:00 Heparin Sodium (Porcine) (Heparin (5000 Units/0.5 ml)) 5,000 unit BID SC Last administered on 08/11/16 08:20; Admin Dose 5,000 UNIT; Start 08/08/16 at 21:00 Lisinopril (Zestril) 2.5 mg DAILY PO Last administered on 08/10/16 08:18; Admin Dose 2.5 MG; Start 08/08/16 at 15:30 Clonazepam (Klonopin) 0.5 mg Q12 PO Last administered on 08/11/16 08:23; Admin Dose 0.5 MG; Start 08/09/16 at 21:00 Lorazepam (Ativan) 1 mg Q4H PRN PO ANXIETY Last administered on 08/10/16 20:50 ; Admin Dose 1 MG; Start 08/09/16 at 13:30 Isosorbide Mononitrate (Imdur) 30 mg DAILY PO Last administered on 08/10/16 11 :52; Admin Dose 30 MG; Start 08/10/16 at 11:30 EVELIO MARTINI August 11, 2016 19:39
[2016-08-11] MEDS: ATORVASTATIN 40 MG TAB PO SCH (21:12)
[2016-08-11] MEDS: INSULIN GLARGINE [LANtus] 3 ML PEN SC SCH (21:25)
--- NOTE | 2016-08-11 21:30 | CONS ---
Date/Time of Note Date/Time of Note DATE: 08/11/16 TIME: 21:25 Consult Date/Type/Reason Admit Date/Time August 08, 2016 at 09:01 Initial Consult Date 08/09/16 Type of Consultation: neurology Ordering Provider: MELITON COLBY Subjective no more tremors C/o JETER 10 on-off for a few days Objective Vital Signs Date Time Temp Pulse Resp B/P Pulse Ox O2 Delivery O2 Flow Rate FiO2 08/11/16 20:33 81 08/11/16 19:01 98.5 15 120/58 98 08/09/16 12:23 Room Air 08/07/16 14:30 3 Intake and Output 08/10/16 08/10/16 08/11/16 15:00 23:00 07:00 Intake Total 600 ml 1350 ml Balance 600 ml 1350 ml Exam AOx3, fluent speech. CN2-12 intact, motor , coordination int, sensory grossly intact. No atrerixis Results/Medications Result Diagram: 08/11/16 0550 08/11/16 0550 Results 24 hrs Laboratory Tests Test 08/11/16 04:54 08/11/16 05:50 08/11/16 07:46 08/11/16 12:00 Bedside Glucose 151 166 192 White Blood Count 8.9 Red Blood Count 4.14 L Hemoglobin 12.3 Hematocrit 38.9 Mean Corpuscular Volume 94.0 Mean Corpuscular Hemoglobin 29.7 Mean Corpuscular Hemoglobin Concent 31.6 L Red Cell Distribution Width 13.4 Platelet Count 190 Mean Platelet Volume 10.7 H Neutrophils % 64.3 Lymphocytes % 23.2 Monocytes % 7.7 Eosinophils % 3.9 Basophils % 0.6 Nucleated Red Blood Cells % 0.0 Neutrophils # 5.7 Lymphocytes # 2.1 Monocytes # 0.7 Eosinophils # 0.4 Basophils # 0.1 Nucleated Red Blood Cells # 0.0 Sodium Level 134 L Potassium Level 3.7 Chloride Level 97 Carbon Dioxide Level 25 Anion Gap 16 Blood Urea Nitrogen 52 H Creatinine 5.42 H Glucose Level 157 Calcium Level 8.2 L Test 08/11/16 17:20 08/11/16 21:01 Bedside Glucose 164 202 Medications Current Medications Ondansetron HCl (Zofran Inj) 4 mg Q6H PRN IV NAUSEA AND/OR VOMITING Last administered on 08/07/16 12:15; Admin Dose 4 MG; Start 08/06/16 at 04:30 Acetaminophen (Tylenol Tab) 650 mg Q6H PRN PO PAIN LEVEL 1-3 OR FEVER; Start at 04:30 Famotidine (Pepcid) 20 mg DAILY PO Last administered on 08/11/16 08:23; Admin Dose 20 MG; Start 08/06/16 at 09:00 Amlodipine Besylate (Norvasc) 5 mg DAILY PO Last administered on 08/11/16 08: 23; Admin Dose 5 MG; Start 08/06/16 at 09:00 Enalapril Maleate (Vasotec) 10 mg DAILY PO Last administered on 08/10/16 08:17 ; Admin Dose 10 MG; Start 08/06/16 at 09:00 Escitalopram Oxalate (Lexapro) 10 mg DAILY PO Last administered on 08/11/16 08 :22; Admin Dose 10 MG; Start 08/06/16 at 09:00 Furosemide (Lasix) 40 mg DAILY@06 PO Last administered on 08/11/16 05:51; Admin Dose 40 MG; Start 08/06/16 at 06:00 Hydralazine HCl (Apresoline) 100 mg TID PO Last administered on 08/10/16 20:42 ; Admin Dose 100 MG; Start 08/06/16 at 09:00 Miscellaneous Information 1 ea NOTE XX ; Start 08/06/16 at 04:30 Glucose (Glutose) 15 gm Q15M PRN PO DECREASED GLUCOSE; Start 08/06/16 at 04:30 Glucose (Glutose) 22.5 gm Q15M PRN PO DECREASED GLUCOSE; Start 08/06/16 at 04: 30 Dextrose (D50w Syringe) 25 ml Q15M PRN IV DECREASED GLUCOSE; Start 08/06/16 at 04:30 Dextrose (D50w Syringe) 50 ml Q15M PRN IV DECREASED GLUCOSE; Start 08/06/16 at 04:30 Glucagon (Glucagen) 1 mg Q15M PRN IM DECREASED GLUCOSE; Start 08/06/16 at 04:30 Glucose (Glutose) 15 gm Q15M PRN BUCCAL DECREASED GLUCOSE; Start 08/06/16 at 04 :30 Hydralazine HCl (Apresoline) 10 mg Q6H PRN IV SBP >160; Start 08/06/16 at 09:30 Morphine Sulfate (morphine) 2 mg Q4H PRN IV pain Last administered on 08:41; Admin Dose 2 MG; Start 08/06/16 at 10:00 Allopurinol (Zyloprim) 100 mg DAILY PO Last administered on 08/11/16 08:23; Admin Dose 100 MG; Start 08/07/16 at 09:00 Insulin Glargine (Lantus) 20 unit QHS SC Last administered on 08/10/16 20:58; Admin Dose 20 UNIT; Start 08/07/16 at 21:00 Atorvastatin Calcium (Lipitor) 40 mg HS PO Last administered on 08/10/16 20:41 ; Admin Dose 40 MG; Start 08/07/16 at 21:00 Carvedilol (Coreg) 6.25 mg BID PO Last administered on 08/11/16 08:22; Admin Dose 6.25 MG; Start 08/07/16 at 21:00 Heparin Sodium (Porcine) (Heparin (5000 Units/0.5 ml)) 5,000 unit BID SC Last administered on 08/11/16 08:20; Admin Dose 5,000 UNIT; Start 08/08/16 at 21:00 Clonazepam (Klonopin) 0.5 mg Q12 PO Last administered on 08/11/16 08:23; Admin Dose 0.5 MG; Start 08/09/16 at 21:00 Lorazepam (Ativan) 1 mg Q4H PRN PO ANXIETY Last administered on 08/10/16 20:50 ; Admin Dose 1 MG; Start 08/09/16 at 13:30 Isosorbide Mononitrate (Imdur) 30 mg DAILY PO Last administered on 08/10/16 11 :52; Admin Dose 30 MG; Start 08/10/16 at 11:30 Assessment/Plan Chief Complaint/Hosp Course Dialysis port malfunction. Myoclonus, likely toxic metabolic resolved. May try to taper off clonazepam. Continue current tx otherwise Problems: WAYNE SIMMONS MD August 11, 2016 21:30
[2016-08-12] VITALS (11 sets, daily range): BP systolic 101–134; BP diastolic 54–92; PULSE 67–72; RESP 15–20
--- NOTE | 2016-08-12 00:23 | RADRPT ---
Vent Rate: 72 bpm RR Interval: [address] Interval: 148 msec QRS Duration: 90 msec QT Interval: 432 msec QTC Interval: 473 msec P-R-T [place]: 91 - 58 - -79 degrees Sinus rhythm with occasional premature ventricular complexes T wave abnormality, consider inferolateral ischemia Prolonged QT Abnormal ECG Electronically Signed By: Da Sorenson [id number]
[2016-08-12] MEDS: FUROSEMIDE 40 MG TAB PO SCH (06:20)
[2016-08-12] MEDS: LEVOTHYROXINE 25 MCG TAB PO SCH (06:20)
[2016-08-12] MEDS: INSULIN ASPART [NOVOLOG] 3 ML PEN SC SCH ×6 (07:55→17:43)
[2016-08-12] MEDS: ESCITALOPRAM 10 MG TAB PO SCH (08:01)
[2016-08-12] MEDS: ALLOPURINOL 100 MG TAB PO SCH (08:03)
[2016-08-12] MEDS: ENALAPRIL 10 MG TAB PO SCH (08:03)
[2016-08-12] MEDS: AMLODIPINE 5 MG TAB PO SCH (08:04)
[2016-08-12] MEDS: FAMOTIDINE 20 MG TAB PO SCH (08:04)
[2016-08-12] MEDS: ISOSORBIDE MONONITRATE(SR)30 MG TAB PO SCH (08:05)
[2016-08-12] MEDS: HEPARIN 5,000 UNIT/0.5 ML VIAL SC SCH ×2 (08:10→21:07)
--- NOTE | 2016-08-12 11:25 | CONS ---
Date/Time of Note Date/Time of Note DATE: 08/12/16 TIME: 11:23 Assessment/Plan Assessment/Plan Additional Assessment/Plan 1. Chest pain, assess for acute coronary syndrome with negative troponins x3. NO ischemia by lexiscan this admit - no cp now 2. Abnormal electrocardiogram, assess for acute coronary syndrome. 3. Cardiomyopathy with decreased left ventricular ejection fraction.-no ischemia by lexiscan 08/10 with EF45%/35-40 by echo 4. Hypertension- well Rx, con't med rx 5. End-stage renal disease on hemodialysis- Rx as needed 6. Dyslipidemia. 7. Diabetes mellitus- will keep euglycemic. Consultation Date/Type/Reason Admit Date/Time August 08, 2016 at 09:01 Initial Consult Date 08/09/16 Type of Consultation: neurology Referring Provider: MELITON COLBY 24 HR Interval Summary Free Text/Dictation No acute events - BP in good range - dizzy? unclear cause, doubt cardiac ROS: No fever, no chills, no nausea, no vomiting, no diarrhea/constipation No recent weight changes No chest pain, no PND, no orthopnea No dizziness, blurred vision No thirst, no heat or cold intolerance Exam/Review of Systems Vital Signs Vitals Vital Signs Date Time Temp Pulse Resp B/P Pulse Ox O2 Delivery O2 Flow Rate FiO2 08/12/16 08:31 67 08/12/16 07:26 97.9 20 119/92 98 08/09/16 12:23 Room Air Intake and Output 08/11/16 08/11/16 08/12/16 15:00 23:00 07:00 Intake Total 500 ml 810 ml 550 ml Output Total 2300 ml 250 ml Balance -1800 ml 810 ml 300 ml Exam General: WN/WD/NAD, AOx 3 HEENT: Unicetric/atraumatic/EOMI (follow commands) NECK: JVD elevated, no thyromegaly Lymph: no lymphadenopathy HEART: regular with no S3, II/ systolic murmur at apex LUNGS: Coarse sounds ABD: soft, NT, ND, +BS : Intact Neuro: non focal SKIN: chronic changes EXT: trace edema Results Result Diagram: 08/11/16 0550 08/11/16 0550 Results 24 hrs Laboratory Tests Test 08/11/16 12:00 08/11/16 17:20 08/11/16 21:01 08/12/16 08:02 Bedside Glucose 192 164 202 102 Medications Medications Current Medications Ondansetron HCl (Zofran Inj) 4 mg Q6H PRN IV NAUSEA AND/OR VOMITING Last administered on 08/07/16 12:15; Admin Dose 4 MG; Start 08/06/16 at 04:30 Acetaminophen (Tylenol Tab) 650 mg Q6H PRN PO PAIN LEVEL 1-3 OR FEVER; Start at 04:30 Famotidine (Pepcid) 20 mg DAILY PO Last administered on 08/12/16 08:04; Admin Dose 20 MG; Start 08/06/16 at 09:00 Amlodipine Besylate (Norvasc) 5 mg DAILY PO Last administered on 08/12/16 08: 04; Admin Dose 5 MG; Start 08/06/16 at 09:00 Enalapril Maleate (Vasotec) 10 mg DAILY PO Last administered on 08/12/16 08:03 ; Admin Dose 10 MG; Start 08/06/16 at 09:00 Escitalopram Oxalate (Lexapro) 10 mg DAILY PO Last administered on 08/12/16 08 :01; Admin Dose 10 MG; Start 08/06/16 at 09:00 Furosemide (Lasix) 40 mg DAILY@06 PO Last administered on 08/12/16 06:20; Admin Dose 40 MG; Start 08/06/16 at 06:00 Hydralazine HCl (Apresoline) 100 mg TID PO Last administered on 08/12/16 08:04 ; Admin Dose 100 MG; Start 08/06/16 at 09:00 Miscellaneous Information 1 ea NOTE XX ; Start 08/06/16 at 04:30 Glucose (Glutose) 15 gm Q15M PRN PO DECREASED GLUCOSE; Start 08/06/16 at 04:30 Glucose (Glutose) 22.5 gm Q15M PRN PO DECREASED GLUCOSE; Start 08/06/16 at 04: 30 Dextrose (D50w Syringe) 25 ml Q15M PRN IV DECREASED GLUCOSE; Start 08/06/16 at 04:30 Dextrose (D50w Syringe) 50 ml Q15M PRN IV DECREASED GLUCOSE; Start 08/06/16 at 04:30 Glucagon (Glucagen) 1 mg Q15M PRN IM DECREASED GLUCOSE; Start 08/06/16 at 04:30 Glucose (Glutose) 15 gm Q15M PRN BUCCAL DECREASED GLUCOSE; Start 08/06/16 at 04 :30 Hydralazine HCl (Apresoline) 10 mg Q6H PRN IV SBP >160; Start 08/06/16 at 09:30 Morphine Sulfate (morphine) 2 mg Q4H PRN IV pain Last administered on 08:41; Admin Dose 2 MG; Start 08/06/16 at 10:00 Allopurinol (Zyloprim) 100 mg DAILY PO Last administered on 08/12/16 08:03; Admin Dose 100 MG; Start 08/07/16 at 09:00 Insulin Glargine (Lantus) 20 unit QHS SC Last administered on 08/11/16 21:25; Admin Dose 20 UNIT; Start 08/07/16 at 21:00 Atorvastatin Calcium (Lipitor) 40 mg HS PO Last administered on 08/11/16 21:12 ; Admin Dose 40 MG; Start 08/07/16 at 21:00 Carvedilol (Coreg) 6.25 mg BID PO Last administered on 08/12/16 08:04; Admin Dose 6.25 MG; Start 08/07/16 at 21:00 Heparin Sodium (Porcine) (Heparin (5000 Units/0.5 ml)) 5,000 unit BID SC Last administered on 08/12/16 08:10; Admin Dose 5,000 UNIT; Start 08/08/16 at 21:00 Lorazepam (Ativan) 1 mg Q4H PRN PO ANXIETY Last administered on 08/10/16 20:50 ; Admin Dose 1 MG; Start 08/09/16 at 13:30 Isosorbide Mononitrate (Imdur) 30 mg DAILY PO Last administered on 08/12/16 08 :05; Admin Dose 30 MG; Start 08/10/16 at 11:30 Clonazepam (Klonopin) 0.5 mg QHS PO ; Start 08/12/16 at 21:00 JACKSON PAUL MD August 12, 2016 11:25
--- NOTE | 2016-08-12 12:04 | PDOCDIS ---
Discharge Instructions CONDITION Patient Condition: Stable HOME CARE INSTRUCTIONS: Special Diet: renal, diabetic diet. ACTIVITY: Activity Restrictions: Slowly Increase Activity FOLLOW UP/APPOINTMENTS Appointments Please take your medications as prescribed, and see your doctor in the clinic in 1 week. EVELINE EID August 12, 2016 12:04
[2016-08-12] MEDS ORDERED: CARV6.2579 PO (12:07)
[2016-08-12] MEDS ORDERED: APIX2.5T PO (12:07)
[2016-08-12] MEDS ORDERED: ISOS30TA5 PO (12:07)
[2016-08-12] MEDS ORDERED: ATOR40TA68 PO (12:24)
--- NOTE | 2016-08-12 18:59 | DS ---
DATE OF ADMISSION: 08/08/2016 DATE OF DISCHARGE: 08/12/2016 HOSPITAL COURSE: This is a 45-year-old female originally admitted on 08/06/2016, being discharged h ome after physical therapy evaluation on 08/12/2016. The patient came in with a nonfunctioning dial ysis catheter. She also has a history of end-stage renal disease and also came in with chest pain s ymptoms as well, and also developed some encephalopathy. She was admitted and seen by multiple spec ialists during this hospital stay including cardiology team, renal team and neurology team. Again, she had a catheter replaced for the nonfunctioning dialysis catheter. She continued dialysis per [facility] by the renal team. She ruled out for acute coronary syndrome. She also underwent a cardiac stress test given the chest pain symptoms and essentially her cardiac stress test results showed no reversible ischemia. There was some depressed ejection fraction noticed with diminished wall motion , but again no signs of any acute ischemia. She also continued levothyroxine for her hypothyroidism . Regarding her encephalopathy, she had a transient period of unresponsiveness while alert with a b lank affect, which lasted for a few minutes. There was a concern of possible seizure activity, alth ough the patient underwent an EEG that showed a mildly abnormal EEG due to generalized bihemispheric background slowing, but without any epileptiform activity. So this was consistent with mild enceph alopathy. The patient's mental status symptoms improved as well. She had a brain MRI performed as well that showed no acute intracranial pathology identified. There was some patchy signal abnormali ty in the kaela that was nonspecific. The patient was recommended by neurology team to be on a lower dose or taper off her clonazepam, so we started doing that as well. Her myoclonus likely toxic met abolic in etiology was resolved as well. She is going to work with physical therapy team on the day of discharge and based on their recommendations, will be discharging her home later today in [facility] ed condition if she is cleared for that. DISCHARGE MEDICATIONS: She will go home with the following medications: 1. Atorvastatin 40 mg at bedtime. 2. Coreg 6.25 mg b.i.d. 3. Imdur 30 mg daily. 4. Allopurinol 100 mg b.i.d. 5. Norvasc 5 mg daily. 6. Enalapril 10 mg daily. 7. Lexapro 10 mg daily. 8. Lasix 40 mg p.o. daily. 9. Hydralazine 10 mg t.i.d. 10. Aspart 5 units subcutaneously with meals. 11. Lantus 20 units subcutaneously at bedtime. 12. Levothyroxine 25 mcg every morning. FOLLOWUP: She will need to follow up with primary care doctor in the clinic in the next 1 to 2 week s. FINAL DIAGNOSES: 1. Nonfunctioning dialysis catheter, status post replacement of the catheter now with functioning c atheter for dialysis, continuing dialysis as regularly scheduled. 2. End-stage renal disease, on dialysis. 3. Hypothyroidism. 4. Type 2 diabetes 5. Essential hypertension. 6. Cardiomyopathy with ejection fraction of 35% and some diastolic dysfunction, now on appropriate blood pressure medication therapy. 7. Acute encephalopathy with myoclonus likely toxic metabolic in origin, now resolving. 8. Chest pain, ruled out for acute coronary syndrome. Time spent discharging patient 45 minutes. Dictated By: EVELINE SEN Conf#: [id number] DID#: [id number]
[2016-08-12] MEDS: INSULIN GLARGINE [LANtus] 3 ML PEN SC SCH (20:53)
[2016-08-12] MEDS: ATORVASTATIN 40 MG TAB PO SCH (20:57)
[2016-08-12] MEDS ORDERED: clonAZEPAM 0.5 MG TAB PO SCH (21:00)
--- NOTE | 2016-08-12 23:28 | CONS ---
Date/Time of Note Date/Time of Note DATE: 08/12/16 TIME: 23:28 Assessment/Plan Assessment/Plan Chief Complaint/Hosp Course IMPRESSION: 1. The patient has malfunctioning port of the dialysis catheter, broken per dialysis nurse. 2. End-stage renal disease. 3. Hypertension. 4. Diabetes mellitus. 5. Hypothyroidism. 6. Cardiomyopathy. 7. Decreased ejection fraction. 8. Systolic heart failure. 9. History of anasarca. 10. History of thoracentesis. 11. Underlying diabetic nephropathy. plan hd renal stable HD AM Problems: Consultation Date/Type/Reason Admit Date/Time August 08, 2016 at 09:01 Type of Consultation: RENAL Referring Provider: MELITON COLBY 24 HR Interval Summary Constitutional: no complaints Exam/Review of Systems Vital Signs Vitals Vital Signs Date Time Temp Pulse Resp B/P Pulse Ox O2 Delivery O2 Flow Rate FiO2 08/12/16 20:02 98.1 67 20 134/60 100 08/09/16 12:23 Room Air Intake and Output 08/11/16 08/11/16 08/12/16 14:59 22:59 06:59 Intake Total 500 ml 810 ml 550 ml Output Total 2300 ml 250 ml Balance -1800 ml 810 ml 300 ml Exam Respiratory: clear to auscultation Cardiovascular: regular rate and rhythm Gastrointestinal: soft Musculoskeletal: nl extremities to inspection Extremities: normal pulses Results Result Diagram: 08/11/16 0550 08/11/16 0550 Results 24 hrs Laboratory Tests Test 08/12/16 08:02 08/12/16 11:53 08/12/16 17:03 08/12/16 20:46 Bedside Glucose 102 243 H 94 166 Medications Medications Current Medications Ondansetron HCl (Zofran Inj) 4 mg Q6H PRN IV NAUSEA AND/OR VOMITING Last administered on 08/07/16 12:15; Admin Dose 4 MG; Start 08/06/16 at 04:30 Acetaminophen (Tylenol Tab) 650 mg Q6H PRN PO PAIN LEVEL 1-3 OR FEVER; Start at 04:30 Famotidine (Pepcid) 20 mg DAILY PO Last administered on 08/12/16 08:04; Admin Dose 20 MG; Start 08/06/16 at 09:00 Amlodipine Besylate (Norvasc) 5 mg DAILY PO Last administered on 08/12/16 08: 04; Admin Dose 5 MG; Start 08/06/16 at 09:00 Enalapril Maleate (Vasotec) 10 mg DAILY PO Last administered on 08/12/16 08:03 ; Admin Dose 10 MG; Start 08/06/16 at 09:00 Escitalopram Oxalate (Lexapro) 10 mg DAILY PO Last administered on 08/12/16 08 :01; Admin Dose 10 MG; Start 08/06/16 at 09:00 Furosemide (Lasix) 40 mg DAILY@06 PO Last administered on 08/12/16 06:20; Admin Dose 40 MG; Start 08/06/16 at 06:00 Hydralazine HCl (Apresoline) 100 mg TID PO Last administered on 08/12/16 20:56 ; Admin Dose 100 MG; Start 08/06/16 at 09:00 Miscellaneous Information 1 ea NOTE XX ; Start 08/06/16 at 04:30 Glucose (Glutose) 15 gm Q15M PRN PO DECREASED GLUCOSE; Start 08/06/16 at 04:30 Glucose (Glutose) 22.5 gm Q15M PRN PO DECREASED GLUCOSE; Start 08/06/16 at 04: 30 Dextrose (D50w Syringe) 25 ml Q15M PRN IV DECREASED GLUCOSE; Start 08/06/16 at 04:30 Dextrose (D50w Syringe) 50 ml Q15M PRN IV DECREASED GLUCOSE; Start 08/06/16 at 04:30 Glucagon (Glucagen) 1 mg Q15M PRN IM DECREASED GLUCOSE; Start 08/06/16 at 04:30 Glucose (Glutose) 15 gm Q15M PRN BUCCAL DECREASED GLUCOSE; Start 08/06/16 at 04 :30 Hydralazine HCl (Apresoline) 10 mg Q6H PRN IV SBP >160; Start 08/06/16 at 09:30 Morphine Sulfate (morphine) 2 mg Q4H PRN IV pain Last administered on 08:41; Admin Dose 2 MG; Start 08/06/16 at 10:00 Allopurinol (Zyloprim) 100 mg DAILY PO Last administered on 08/12/16 08:03; Admin Dose 100 MG; Start 08/07/16 at 09:00 Insulin Glargine (Lantus) 20 unit QHS SC Last administered on 08/12/16 20:53; Admin Dose 20 UNIT; Start 08/07/16 at 21:00 Atorvastatin Calcium (Lipitor) 40 mg HS PO Last administered on 08/12/16 20:57 ; Admin Dose 40 MG; Start 08/07/16 at 21:00 Carvedilol (Coreg) 6.25 mg BID PO Last administered on 08/12/16 20:58; Admin Dose 6.25 MG; Start 08/07/16 at 21:00 Heparin Sodium (Porcine) (Heparin (5000 Units/0.5 ml)) 5,000 unit BID SC Last administered on 08/12/16 21:07; Admin Dose 5,000 UNIT; Start 08/08/16 at 21:00 Lorazepam (Ativan) 1 mg Q4H PRN PO ANXIETY Last administered on 08/10/16 20:50 ; Admin Dose 1 MG; Start 08/09/16 at 13:30 Isosorbide Mononitrate (Imdur) 30 mg DAILY PO Last administered on 08/12/16 08 :05; Admin Dose 30 MG; Start 08/10/16 at 11:30 Clonazepam (Klonopin) 0.5 mg QHS PO Last administered on 08/12/16 20:57; Admin Dose 0.5 MG; Start 08/12/16 at 21:00 JUAN C SHEPHERD MD August 12, 2016 23:28
[2016-08-13] VITALS (9 sets, daily range): BP systolic 106–130; BP diastolic 50–70; PULSE 70–80; RESP 16–18
[2016-08-13] MEDS: FUROSEMIDE 40 MG TAB PO SCH (06:25)
[2016-08-13] MEDS: LEVOTHYROXINE 25 MCG TAB PO SCH (06:25)
[2016-08-13] MEDS: ESCITALOPRAM 10 MG TAB PO SCH (08:27)
[2016-08-13] MEDS: ALLOPURINOL 100 MG TAB PO SCH (08:27)
[2016-08-13] MEDS: FAMOTIDINE 20 MG TAB PO SCH (08:27)
[2016-08-13] MEDS: ISOSORBIDE MONONITRATE(SR)30 MG TAB PO SCH (08:28)
[2016-08-13] MEDS: AMLODIPINE 5 MG TAB PO SCH (08:28)
[2016-08-13] MEDS: ENALAPRIL 10 MG TAB PO SCH (08:29)
[2016-08-13] MEDS: INSULIN ASPART [NOVOLOG] 3 ML PEN SC SCH ×6 (08:41→17:40)
[2016-08-13] MEDS: HEPARIN 5,000 UNIT/0.5 ML VIAL SC SCH ×2 (08:41→20:30)
--- NOTE | 2016-08-13 10:48 | DS ---
Date/Time of Note Date/Time of Note DATE: 08/13/16 TIME: 10:46 Discharge Summary Admission/Discharge Info Admit Date/Time August 08, 2016 at 09:01 Discharge Date/Time Final Diagnosis 1. Nonfunctioning dialysis catheter, status post replacement of the catheter now with functioning catheter for dialysis, continuing dialysis as regularly scheduled. 2. End-stage renal disease, on dialysis. 3. Hypothyroidism. 4. Type 2 diabetes 5. Essential hypertension. 6. Cardiomyopathy with ejection fraction of 35% and some diastolic dysfunction , now on appropriate blood pressure medication therapy. 7. Acute encephalopathy with myoclonus likely toxic metabolic in origin, now resolving. 8. Chest pain, ruled out for acute coronary syndrome. Time spent discharging patient 45 minutes. Hx of Present Illness Chief complaint: Nonfunctioning dialysis catheter Patient is a 45-year-old female on dialysis who was sent from dialysis clinic to the ER yesterday, but did not come to the ER until today. She was sent for a broken dialysis catheter in order to have it replaced. Last successful dialysis was 4 days ago. Patient reports having gradual onset, intermittent, dull, moderate left-sided chest pain for the last day. She reports that the pain has now been constant for approximately 5 hours. She denies shortness of breath, fever, back pain. The patient reports having a nonproductive cough. Allergies: Penicillin Medications: See MAR Hospital Course HOSPITAL COURSE: This is a 45-year-old female originally admitted on 08/06/2016 , being discharged to SNF on 08/13/2016. The patient came in with a nonfunctioning dialysis catheter. She also has a history of end-stage renal disease and also came in with chest pain symptoms as well, and also developed some encephalopathy. She was admitted and seen by multiple specialists during this hospital stay including cardiology team, renal team and neurology team. Again, she had a catheter replaced for the nonfunctioning dialysis catheter. She continued dialysis per schedule by the renal team. She ruled out for acute coronary syndrome. She also underwent a cardiac stress test given the chest pain symptoms and essentially her cardiac stress test results showed no reversible ischemia. There was some depressed ejection fraction noticed with diminished wall motion, but again no signs of any acute ischemia. She also continued levothyroxine for her hypothyroidism. Regarding her encephalopathy, she had a transient period of unresponsiveness while alert with a blank affect, which lasted for a few minutes. There was a concern of possible seizure activity, although the patient underwent an EEG that showed a mildly abnormal EEG due to generalized bihemispheric background slowing, but without any epileptiform activity. So this was consistent with mild encephalopathy. The patient's mental status symptoms improved as well. She had a brain MRI performed as well that showed no acute intracranial pathology identified. There was some patchy signal abnormality in the kaela that was nonspecific. The patient was recommended by neurology team to be on a lower dose or taper off her clonazepam, so we started doing that as well. Her myoclonus likely toxic metabolic in etiology was resolved as well. Physical therapy team recommended d /c to SNF so we will arrange for this. DISCHARGE MEDICATIONS: She will go to SNF with the following medications: 1. Atorvastatin 40 mg at bedtime. 2. Coreg 6.25 mg b.i.d. 3. Imdur 30 mg daily. 4. Allopurinol 100 mg b.i.d. 5. Norvasc 5 mg daily. 6. Enalapril 10 mg daily. 7. Lexapro 10 mg daily. 8. Lasix 40 mg p.o. daily. 9. Hydralazine 10 mg t.i.d. 10. Aspart 5 units subcutaneously with meals. 11. Lantus 20 units subcutaneously at bedtime. 12. Levothyroxine 25 mcg every morning. Home Meds Active Scripts Atorvastatin* (Atorvastatin*) 40 Mg Tablet, 40 MG PO HS, #30 TAB 2 Refills Prov:EVELINE EID S. 08/12/16 Isosorbide Mononitrate* (Isosorbide Mononitrate*) 30 Mg Tab.er.24h, 30 MG PO DAILY, #30 2 Refills Prov:EVELINE EID S. 08/12/16 Carvedilol* (Carvedilol*) 6.25 Mg Tablet, 6.25 MG PO BID, #60 TAB 2 Refills Prov:EVELINE EID S. 08/12/16 Reported Medications Insulin Aspart* (Novolog Insulin Pen*) 100 Unit/Ml Soln, 5 UNIT SC WITH MEALS, EA 08/05/16 Insulin Glargine* (Lantus*) 100 Unit/Ml Soln, 20 UNIT SC QHS, #1 VIAL 08/05/16 Escitalopram Oxalate* (Lexapro*) 10 Mg Tablet, 10 MG PO DAILY, #30 TAB 08/05/16 Amlodipine Besylate* (Norvasc*) 5 Mg Tablet, 5 MG PO DAILY, TAB 08/05/16 Furosemide* (Furosemide*) 40 Mg Tablet, 40 MG PO DAILY, TAB 08/05/16 Levothyroxine Sodium* (Levothyroxine Sodium*) 25 Mcg Tablet, 25 MCG PO BEFORE BREAKFAST, #30 TAB 08/05/16 Allopurinol* (Allopurinol*) 100 Mg Tablet, 100 MG PO BID, TAB 08/05/16 Enalapril Maleate* (Enalapril Maleate*) 10 Mg Tablet, 10 MG PO DAILY, TAB 08/05/16 Hydralazine Hcl* (Hydralazine Hcl*) 100 Mg Tablet, 100 MG PO TID, #90 TAB 08/05/16 Discontinued Reported Medications Carvedilol* (Carvedilol*) 12.5 Mg Tablet, 12.5 MG PO BID, #60 TAB 08/05/16 Isosorbide Dinitrate* (Isosorbide Dinitrate*) 20 Mg Tablet, 20 MG PO TID, TAB 08/05/16 Primary Care Provider Not On Staff Doctor Pending Labs Laboratory Tests Test 08/12/16 11:53 08/12/16 17:03 08/12/16 20:46 08/13/16 08:01 Bedside Glucose 243mg/dL (70-220) 94mg/dL (70-220) 166mg/dL (70-220) 158mg/dL (70-220) EVELINE EID August 13, 2016 10:48
--- NOTE | 2016-08-13 13:08 | CONS ---
Date/Time of Note Date/Time of Note DATE: 08/13/16 TIME: 13:04 Assessment/Plan Assessment/Plan Chief Complaint/Hosp Course IMPRESSION: 1. Chest pain, assess for acute coronary syndrome with negative troponins x3. NO ischemia by lexiscan this admit 2. Abnormal electrocardiogram, assess for acute coronary syndrome. 3. Cardiomyopathy with decreased left ventricular ejection fraction.-no ischemia by lexiscan 08/10 with EF45%/35-40 by echo 4. Hypertension. 5. End-stage renal disease on hemodialysis. 6. Dyslipidemia. 7. Diabetes mellitus. Recc: -Tele -serial ecg's -Continue vasotec/imdur/norvasc/coreg -Continue statin -HD for volume removal -ok for d/c from cardiac standpoint with ouitpatient f/u and ongoing treatment of cardiomyopathy Problems: Consultation Date/Type/Reason Admit Date/Time August 08, 2016 at 09:01 Initial Consult Date 08/09/16 Type of Consultation: Cardiology Reason for Consultation cardiomyopathy Referring Provider: MELITON COLBY Exam/Review of Systems Vital Signs Vitals Vital Signs Date Time Temp Pulse Resp B/P Pulse Ox O2 Delivery O2 Flow Rate FiO2 08/13/16 07:44 98.1 72 16 124/58 96 08/09/16 12:23 Room Air Intake and Output 08/12/16 08/12/16 08/13/16 15:00 23:00 07:00 Intake Total 370 ml Balance 370 ml Exam Review of Systems: CONSTITUTIONAL: No fevers, chills. PULMONARY: No sob CARDIOVASCULAR: No chest pain/palpitations GASTROINTESTINAL: No nausea/vomiting. GENITOURINARY: No hematuria/dysuria. MUSCULOSKELETAL: No myagias/arthalgias. PSYCHIATRIC: The patient denies depression. NEUROLOGIC: No weakness Constitutional: alert Psych: no complaints Head: normocephalic ENMT: mucosa pink and moist Neck: jvd, supple Respiratory: diminished breath sounds Cardiovascular: regular rate and rhythm Gastrointestinal: non-tender, soft Musculoskeletal: muscle tone (normal) Extremities: edema (normal) Neurological: other (No focal deficits) Results Result Diagram: 08/11/16 0550 08/11/16 0550 Results 24 hrs Laboratory Tests Test 08/12/16 17:03 08/12/16 20:46 08/13/16 08:01 08/13/16 11:54 Bedside Glucose 94 166 158 163 Medications Medications Current Medications Ondansetron HCl (Zofran Inj) 4 mg Q6H PRN IV NAUSEA AND/OR VOMITING Last administered on 08/07/16 12:15; Admin Dose 4 MG; Start 08/06/16 at 04:30 Acetaminophen (Tylenol Tab) 650 mg Q6H PRN PO PAIN LEVEL 1-3 OR FEVER; Start at 04:30 Famotidine (Pepcid) 20 mg DAILY PO Last administered on 08/13/16 08:27; Admin Dose 20 MG; Start 08/06/16 at 09:00 Amlodipine Besylate (Norvasc) 5 mg DAILY PO Last administered on 08/12/16 08: 04; Admin Dose 5 MG; Start 08/06/16 at 09:00 Enalapril Maleate (Vasotec) 10 mg DAILY PO Last administered on 08/12/16 08:03 ; Admin Dose 10 MG; Start 08/06/16 at 09:00 Escitalopram Oxalate (Lexapro) 10 mg DAILY PO Last administered on 08/13/16 08 :27; Admin Dose 10 MG; Start 08/06/16 at 09:00 Furosemide (Lasix) 40 mg DAILY@06 PO Last administered on 08/13/16 06:25; Admin Dose 40 MG; Start 08/06/16 at 06:00 Hydralazine HCl (Apresoline) 100 mg TID PO Last administered on 08/12/16 20:56 ; Admin Dose 100 MG; Start 08/06/16 at 09:00 Miscellaneous Information 1 ea NOTE XX ; Start 08/06/16 at 04:30 Glucose (Glutose) 15 gm Q15M PRN PO DECREASED GLUCOSE; Start 08/06/16 at 04:30 Glucose (Glutose) 22.5 gm Q15M PRN PO DECREASED GLUCOSE; Start 08/06/16 at 04: 30 Dextrose (D50w Syringe) 25 ml Q15M PRN IV DECREASED GLUCOSE; Start 08/06/16 at 04:30 Dextrose (D50w Syringe) 50 ml Q15M PRN IV DECREASED GLUCOSE; Start 08/06/16 at 04:30 Glucagon (Glucagen) 1 mg Q15M PRN IM DECREASED GLUCOSE; Start 08/06/16 at 04:30 Glucose (Glutose) 15 gm Q15M PRN BUCCAL DECREASED GLUCOSE; Start 08/06/16 at 04 :30 Hydralazine HCl (Apresoline) 10 mg Q6H PRN IV SBP >160; Start 08/06/16 at 09:30 Morphine Sulfate (morphine) 2 mg Q4H PRN IV pain Last administered on 08:41; Admin Dose 2 MG; Start 08/06/16 at 10:00 Allopurinol (Zyloprim) 100 mg DAILY PO Last administered on 08/13/16 08:27; Admin Dose 100 MG; Start 08/07/16 at 09:00 Insulin Glargine (Lantus) 20 unit QHS SC Last administered on 08/12/16 20:53; Admin Dose 20 UNIT; Start 08/07/16 at 21:00 Atorvastatin Calcium (Lipitor) 40 mg HS PO Last administered on 08/12/16 20:57 ; Admin Dose 40 MG; Start 08/07/16 at 21:00 Carvedilol (Coreg) 6.25 mg BID PO Last administered on 08/12/16 20:58; Admin Dose 6.25 MG; Start 08/07/16 at 21:00 Heparin Sodium (Porcine) (Heparin (5000 Units/0.5 ml)) 5,000 unit BID SC Last administered on 08/13/16 08:41; Admin Dose 5,000 UNIT; Start 08/08/16 at 21:00 Lorazepam (Ativan) 1 mg Q4H PRN PO ANXIETY Last administered on 08/10/16 20:50 ; Admin Dose 1 MG; Start 08/09/16 at 13:30 Isosorbide Mononitrate (Imdur) 30 mg DAILY PO Last administered on 08/12/16 08 :05; Admin Dose 30 MG; Start 08/10/16 at 11:30 Clonazepam (Klonopin) 0.5 mg QHS PO Last administered on 08/12/16 20:57; Admin Dose 0.5 MG; Start 08/12/16 at 21:00 EVELIO MARTINI August 13, 2016 13:08
[2016-08-13] MEDS: ATORVASTATIN 40 MG TAB PO SCH (20:24)
[2016-08-13] MEDS: INSULIN GLARGINE [LANtus] 3 ML PEN SC SCH (20:36)
--- NOTE | 2016-08-13 23:37 | CONS ---
Date/Time of Note Date/Time of Note DATE: 08/13/16 TIME: 23:36 Assessment/Plan Assessment/Plan Chief Complaint/Hosp Course IMPRESSION: 1. The patient has malfunctioning port of the dialysis catheter, broken per dialysis nurse. 2. End-stage renal disease. 3. Hypertension. 4. Diabetes mellitus. 5. Hypothyroidism. 6. Cardiomyopathy. 7. Decreased ejection fraction. 8. Systolic heart failure. 9. History of anasarca. 10. History of thoracentesis. 11. Underlying diabetic nephropathy. plan hd renal stable HD home ok Problems: Consultation Date/Type/Reason Admit Date/Time August 08, 2016 at 09:01 Type of Consultation: renal Referring Provider: MELITON COLBY Exam/Review of Systems Vital Signs Vitals Vital Signs Date Time Temp Pulse Resp B/P Pulse Ox O2 Delivery O2 Flow Rate FiO2 08/13/16 20:21 98.9 80 18 130/59 97 Room Air Intake and Output 08/12/16 08/12/16 08/13/16 15:00 23:00 07:00 Intake Total 370 ml Balance 370 ml Exam Respiratory: clear to auscultation Cardiovascular: regular rate and rhythm Gastrointestinal: soft Results Result Diagram: 08/11/16 0550 08/11/16 0550 Results 24 hrs Laboratory Tests Test 08/13/16 08:01 08/13/16 11:54 08/13/16 17:29 08/13/16 20:29 Bedside Glucose 158 163 231 H 188 JUAN C SHEPHERD MD August 13, 2016 23:37
== END 2016-08-13 21:25 | disposition home health service (06) | DRG 314 ==
LOC: E/R 13:30 → EDSEX 13:30 → TEL 23:34 → OBSVTOIN 08-08 09:01 → MS2 08-13 00:07
PROVIDERS: ADMIT Family Medicine; ATTEND Family Medicine
PROC: 02H633Z Insertion of Infusion Device into Right Atrium, Percutaneous Approach (ICD-10-PCS; principal; 2016-08-07)
PROC: 05PY33Z Removal of Infusion Device from Upper Vein, Percutaneous Approach (ICD-10-PCS; 2016-08-07)
PROC: 5A1D60Z (ICD-10-PCS; 2016-08-07)
DX: T82.41XA Breakdown (mechanical) of vascular dialysis catheter, initial encounter (principal); N18.6 End stage renal disease; I13.2 Hypertensive heart and chronic kidney disease with heart failure and with stage 5 chronic kidney disease, or end stage renal disease; G92 Toxic encephalopathy; I50.20 Unspecified systolic (congestive) heart failure; E11.22 Type 2 diabetes mellitus with diabetic chronic kidney disease; Z99.2 Dependence on renal dialysis; M94.0 Chondrocostal junction syndrome [Tietze]; M10.9 Gout, unspecified; E03.9 Hypothyroidism, unspecified
CPT/HCPCS: 36415; 36581; 70450; 70551; 71010; 78452; 80048; 80053; 82962; 83036; 83735; 84100; 84443; 84484; 85025; 85610; 85730; 90935; 93005; 93017; 93306; 95819; 97162; G0378; A9500; A9505; J0360; J0690; J1644; J1815; J2250; J2270; J2405; J2785; J2997; J3010; J7040

== ENCOUNTER 2017-09-28 19:40 | Emergency (ER) | END 2017-09-29 00:30 | disposition home or self-care (01) ==